=== PATIENT | female | born 1995 | race Caucasian/White ===

== ENCOUNTER 2023-10-01 07:30 | Inpatient (IN) ==
[2023-10-01] MEDS ORDERED: LIDOCAINE 1% LOCAL 20 ML VIAL INFIL PRN (08:49)
[2023-10-01 09:33] LABS: Hematocrit (blood only) 38.8 % (37.0-47.0); Hemoglobin 12.6 g/dl (12.0-16.0); Mean Corpuscular Hgb Conc 32.5 g/dL (32.0-36.0); Mean Corpuscular Volume 86.2 fL (80.0-100.0); Platelet Count 181 K/uL (130-400); RDW Coefficient of Variation 17.7 % (11.5-14.5); RDW Standard Deviation 56.1 fL (36.4-46.3); White Blood Count 10.36 K/ul (4.8-10.8)
[2023-10-01] MEDS: DINOPROSTONE 10 MG INSERT PV ONE (09:44)
[2023-10-01] MEDS ORDERED: ACETAMINOPHEN 325 MG TAB PO PRN (10:12)
--- NOTE | 2023-10-01 10:12 | History & Physical Report ---
Date of Service October 01, 2023 Assessment & Plan (1) Gestational diabetes mellitus: Plan: 28-year-old G1, P0 at 39 weeks and 2 days of gestation presenting today for scheduled induction of labor at term, for gestational diabetes, on metformin, Vital signs stable afebrile, heart rate reassuring, GBS negative, Cervix unfavorable, Cervidil is placed for cervical ripening, Discussed the process and what to expect in details, All questions were answered. (2) Iron deficiency anemia: Admission and Anticipated Discharge Date Admission Date: October 01, 2023 History of Present Illness Primary Care Provider: YOUSIF [place] Patient is a 28-year-old G1, P0 at 39 weeks and 2 days of gestation who was scheduled for induction of labor at term for gestational diabetes, on metformin. She has no complaints. She denies contractions, leakage of fluid, vaginal bleeding. She reports good movements. Her has been uncomplicated except GDM A2, patient preferred to be on oral medication instead of insulin. Her fingersticks have been within normal limits. GBS negative, last ultrasound was weeks ago, 09/15, EFW was 7 lb, 63th %ile Allergies Allergy/AdvReac Type Severity Reaction Status Date / Time Sulfa (Sulfonamide Allergy Severe Hives Verified 10/01/23 08:11 Antibiotics) Home Medications Medication Instructions Recorded Confirmed Type aspirin 81 mg tablet 81 mg PO QAM 06/24/23 10/01/23 History docusate sodium 100 mg capsule 100 mg PO HS 06/24/23 10/01/23 History (Colace) omeprazole 20 mg capsule,delayed 20 mg PO QAM 06/24/23 10/01/23 History release promethazine 25 mg tablet 25 mg PO HS nausea and vomiting 06/24/23 10/01/23 History pyridoxine (vitamin B6) 100 mg 100 mg PO DAILY 06/24/23 10/01/23 History tablet (Vitamin B-6) Patient History Medical History (Updated 10/01/23 @ 10:11 by Miller Richardson MD) History of migraine headaches Iron deficiency anemia had 3 iron infusions Gestational diabetes mellitus on oral medications( metformin 500mg) No pertinent past medical history Surgical History H/O wisdom tooth extraction Family History Grandmother (Maternal) Diabetes mellitus type 2, controlled Social History (Updated 10/01/23 @ 08:07 by Shakira Simmons RN) Smoking Status: Never smoker Hx Alcohol Use: No Hx Substance Use: No Preferred Language: Portuguese Communication Ability: Effective Communication Tools: Other Visual Impairment: Limited Hearing Ability: Normal Astronomy Teacher Required: No Beliefs That Will Affect Care: None marital status: marital status details: Jeremie Kruger ([phone]) Current Living Situation: Spouse Current Living Situation Comment: lives with current occupational status: 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 [employer] Feels Safe at Home: Yes Safety Concerns: Feels Safe At This Time Assistive Devices: None 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 History No history of STDs, no history of chlamydia, gonorrhea, herpes Review of Systems as per Subjective / HPI Physical Exam Constitutional: WD/WN, vitals as above well developed, well nourished and comfortable very talkative Gastrointestinal (Abdomen): normal bowel sounds, soft, nontender, no hepato splenomegaly (gravid) Genitourinary: normal external appearance OB Exam Abdomen: + vertex Manual OB Exam: + cervical dilation 1 cm, + cervical effacement 50% and + station -2 OB Exam Monitor Tracing: + external uterine monitor used and + category I Results & Data Vital Signs (Past 12 Hours) Vital Signs Temp Pulse Resp BP 10/01/23 07:52 36.9 C 18 10/01/23 07:51 100 H 134/86 Laboratory Results Lab Results 10/01/23 Range/Units 09:11 WBC 10.36 (4.8-10.8) K/ul RBC 4.50 (4.20-5.40) M/uL Hgb 12.6 (12.0-16.0) g/dl Hct 38.8 (37.0-47.0) % MCV 86.2 (80.0-100.0) fL MCH 28.0 (25.0-34.0) pg MCHC 32.5 (32.0-36.0) g/dL RDW Std Deviation 56.1 H (36.4-46.3) fL RDW Coeff of Sia 17.7 H (11.5-14.5) % Plt Count 181 (130-400) K/uL MPV 11.0 (9.4-12.4) fL (1) Gestational diabetes mellitus Gestational diabetes mellitus control: oral hypoglycemic-controlled Trimester: third trimester Qualified Code(s): O24.415 - Gestational diabetes mellitus in , controlled by oral hypoglycemic drugs (2) Iron deficiency anemia Iron deficiency anemia type: other iron deficiency Qualified Code(s): D50.8 - Other iron deficiency anemias
[2023-10-01] MEDS ORDERED: CALCIUM CARBONATE 500 MG CHEWABLE TAB PO PRN (10:13)
[2023-10-01 10:59] LABS: Albumin Globulin Ratio 0.9 (0.9-2); Albumin Level 3.3 gm/dl (3.4-5.0); BUN Creatinine Ratio 20.4 (10-20); Bilirubin,Total 0.3 mg/dl (0.2-1.0); Calcium 8.6 mg/dl (8.6-10.3); Creatinine Clr Calc Pharmacy 165.6 ml/min; Est GFR (African American) 148.8 ml/min; Est GFR (Non-African American) 128.4 ml/min; Globulin 3.6 gm/dl (2.5-4.0); Potassium 3.8 mmol/L (3.5-5.1); Total Protein 6.9 gm/dl (6.0-8.3)
--- OUTSIDE RECORDS SUMMARY | 2023-10-01 14:13 | External Medical Summary ---
Author Name Unknown Address Unknown Organization [id number][place] [facility] [place] [address] [place] [address] Laboratory Report Ordering Provider Test Date Status VÍCTOR MASON 09/24/2023 11:48:10 Final Observation Date Value Abnormality Reference (Units ) Status Iron 09/24/2023 11:48:10 66 33-151 (ug/dL) Final Iron-binding capacity 09/24/2023 11:48:10 581 Above high normal 250-425 (ug/dL) Final Transferrin Sat % 09/24/2023 11:48:10 11 Below low normal 15-55 (%) Final Performing Location [place] [facility] [place] [address] [place] [address]
--- OUTSIDE RECORDS SUMMARY | 2023-10-01 14:13 | External Medical Summary ---
Author Name Unknown Address Unknown Organization [id number][place] [place] [address] [facility] [address] Laboratory Report Ordering Provider Test Date Status VÍCTOR MASON 09/24/2023 11:48:10 Final Observation Date Value Abnormality Reference (Units ) Status Retic, % (auto) 09/24/2023 11:48:10 2.21 Above high normal 0.80-1.90 (%) Final Reticulocytes, Absolute 09/24/2023 11:48:10 102.1 Above high normal 31.3-100.1 (K/uL) Final Reticulocyte fraction, immature 09/24/2023 11:48:10 28.2 Above high normal 2.5-20.6 (%) Final Reticulocyte HGB 09/24/2023 11:48:10 31.3 29.7-37.4 (pg) Final Performing Location [facility] [place] [address] [facility] [address]
--- OUTSIDE RECORDS SUMMARY | 2023-10-01 14:13 | External Medical Summary | Summary of Care ---
Author Name Unknown Organization [facility] Address [address] [place] [facility] [place] [address] Phone [phone] Care Team Providers Care Laboratory Director Name Role Phone Unavailable Primary Care Provider Unavailabl e Reason for Visit * Reason Comments Outpatient Testing Encounter Details Date Type Department Care Team (Late st Contact Info) Description 09/24/2023 11:40 AM EDT Laboratory [facility], [facility] [address] [facility] [phone] [facility] [address] [facility] [address] Iron deficiency anemia, unspecified iron deficiency anemia type Allergies Active Allergy Reactions Criticality Noted Date Comments Sulfadiazine 04/24/2022 Other reaction(s): hives, itching Sulfamethoxazole-Trimethopri m Rash 08/24/2018 Other reaction(s): hives, itching documented as of this encounter (statuses as of 09/24/2023) Medications Medication Sig Dispensed Refills Start Date End Date Status omeprazole (PRILOSEC) 10 MG CPDR Take 2 Capsules by mouth every other day. 0 Active Cetirizine HCl 10 MG Oral Capsule Take 1 Capsule by mouth in the morning. 0 Active Gummies 0.18-25 MG Oral Tablet Chewable Take by mouth. 0 Activ e Promethazine HCl 25 MG Oral Tablet (Phenergan)Indication s: related nausea, antepartum Take 1 Tablet by mouth every 6 hours as needed for Nausea. 60 Tablet 2 06/23/2023 Active Vitamin B-12 1000 MCG Oral Tablet (Cyanocobalamin) Take 1 Tablet by mouth in the morning. 30 Tablet 3 07/22/2023 Active OneTouch Verio w/Device KitIndications:Diet controlled gestational diabetes mellitus (GDM) in third trimester Use as directed. Test blood sugar 4 times a day 1 Kit 0 08/03/2023 Active OneTouch Delica Lancets 33GIndications:Diet controlled gestational diabetes mellitus (GDM) in third trimester Test blood sugar 4 times a day 100 Each 2 08/03/2023 Active OneTouch Verio In Vitro Strip (Glucose Blood)Indications: t controlled gestational diabetes mellitus (GDM) in third trimester Test blood sugar 4 times a day 100 Strip 2 08/03/2023 Active metFORMIN HCl 500 MG Oral Tablet (Glucophage)Indicatio ns:Gestational diabetes mellitus (GDM) in third trimester controlled on oral hypoglycemic drug Take 1 Tablet by mouth every night at bedtime. 90 Tablet 1 09/09/2023 Active documented as of this encounter (statuses as of 09/24/2023) Active Problems Problem Noted Date Diagnosed Date with 36 completed weeks gestation 08/26 Supervision of high risk in third trim harsha 08/20/2023 with 33 completed weeks gestation 07/30 Gestational diabetes mellitu s (GDM) in third trimester controlled on oral hypoglycemic drug 08/03/2023 Overview: Diagnosed at 31 weeks Nutrition consult ordered Lab Results Component Value Date/Time 50-G GESTATIONAL GLUCOSE, 1 HOUR - [facility] 138 (H) 07/21/2023 03:59 PM 100-G GESTATIONAL GLUCOSE, 1 HOUR - [facility] 203 (H) 08/03/2023 09:25 AM 100-G GESTATIONAL GLUCOSE, 2 HOUR - [facility] 164 (H) 08/03/2023 10:28 AM 100-G GESTATIONAL GLUCOSE, 3 HOUR - [facility] 85 08/03/2023 11:24 AM 100-G GESTATIONAL GLUCOSE, FASTING - [facility] 88 08/03/2023 08:19 AM She reports her home blood glucose as following: DATE Fasting 1 hr after Breakfast 1 hr after Lunch 1 hr after Dinner 08/14/23 84 105 119 109 08/15/23 89 113 x 83 Recheck 116 08/16/23 93 150 drank chocolate milk 117 197 P[place] Salad with veggie sandwich on WW bread 2 hours: 116 08/17/23 83 120 91 140 2 hours: 121 08/18/23 86 128 138 112 08/19/23 90 132 129 110 08/20/23 87 118 125 x 08/20/23: MFM ADAPT consult complete. Enrolled in Current Health. Instructions provided to report blood sugars each week for MFM review 08/24/23: RPM message received regarding bedtime snack options; recommend fasting 8-10 hours overnight along with having a bedtime snack of 30g CHO paired with protein 08/25/23: RPM message received; recommend Nutrition consult - phone # provided to schedule 08/30/23-elevated after meals. Msg sent to have patient scheduled for follow up adapt 09/09/23-patient is scheduled for ADAPT today 09/0809/09/23: Adapt visit completed. 4/7 elevated FBS this week. Several elevated PP's. Pt agreeable to medication and would prefer to begin Metformin instead of insulin. Will begin Metformin 500mg PO at bedtime. Will work on diet control (may have to decrease carbohydrates with meals) over the next week. If PP's continue to be high, she is agreeable to adding morning dose of Metformin. --KW 09/14/23: RPM reviewed. Overall doing well, FBS only 2 out of 8 elevated. Continue Metformin 500 mg PO at bedtime --KW 09/20/23: RPM Stable, Metformin 500 mg QHS ---KW Last Assessment & Plan: Recommend ultrasound, surveillance and delivery as follows: A2GDM, recommend growth assessment with MFM every 4 weeks, initiate surveillance and continue until delivery at 39 weeks. Recommend intrapartum monitoring every 1-2 hours (A2GDM) or every 4 hours (A1GDM) and treat with insulin if indicated. Recommend 2-hour glucose tolerance testing with 75-gram glucose load 6-8 weeks . 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 Early GTT WNL Eczema 01/10/2020 Eosinophilic esophagitis 01/10/2020 Migraine headache 01/10/2020 Estimated Date of Delivery Comme nts Yes 10/06/2023 Based on last me nstrual period of 12/30/2022 (Exact Date) documented as of this encounter (statuses as of 09/24/2023) Immunizations Name Administration Dates Next Due Seasonal Influenza, PF, 6 M & above, IM , (FluLaval or Fluzone) 03/29/2023 TDAP (age 10 and older)(Boostrix) 07/21/2023 documented as of this encounter Social History Tobacco Use Types Packs/Day Years Used Date Smoking Tobacco: Never Smokeless Tobacco: Never Alcohol Use Standard Drinks/Week Comments No 0 (1 standard drink = 0.6 oz pur e alcohol) AUDIT-C Answer Date Recorded Frequency of Alcohol Consumption Never 08/24/2018 Average Number of Drinks Not on file 019 Frequency of Binge Drinking Not on file 07/30 Hunger Vital Sign Answer Date Recorded Within the past 12 months, y ou worried that your food would run out before you got the money to buy more. Never true 02/17/20 23 Within the past 12 months, t he food you bought just didn't last and you didn't have money to get more. Never true 02/16/2023 [place] Depression Scale Answer Date Recorded [place] Depression Scale Total 6 09/09/2023 The thought of harming myself has occurred to me . Never 09/09/2023 Estimated Date of Delivery Comme nts Yes 10/06/2023 Based on last me nstrual period of 12/30/2022 (Exact Date) Sex and Gender Information Value Date Recorded Sex Assigned at Female 02/16/2023 5:33 AM EDT Gender Identity Female 02/16/2023 5:33 AM EDT Sexual Orientation Straight 02/16/2023 5: 33 AM EDT Job Start Date Occupation Industry Not on file Not on file Not on file documented as of this encounter Plan of Treatment Upcoming Encounters Date Type Department Care Team (Late st Contact Info) Description 09/28/2023 9:30 AM EDT Pharmacy Pharmacy, [place] [address] [place] [address] Clinic, Anemia [address] [place] [address] 09/28/2023 10:15 AM EDT Office Visit Gynecology/Obstetrics [facility] [address] [place] [address] Alma Delia Black CRNP [address] [place] [address] [facility], Non Stress Tests [facility] [address] [address] 10/01/2023 2:30 PM EDT Office Visit Gynecology/Obstetrics [facility] [address] [place] [address] Eugenio Rivera MD [address] [place] [address] [place], Non Stress Tests [facility] [address] [address] Pending Results Name Type Priority Associated Diagnoses Date /Time CBC WITH WBC DIFFERENTIAL Lab Routine Iron deficiency anemia, unspecified iron deficiency anemia type 09/24/2023 11:48 AM EDT IRON SCREEN, INCLUDING TIBC Lab Routine Iron deficiency anemia, unspecified iron deficiency anemia type 09/24/2023 11:48 AM EDT FERRITIN Lab Routine Iron deficiency anemia, unspecified iron deficiency anemia type 09/24/2023 11:48 AM EDT RETICULOCYTE PANEL Lab Routine Iron deficiency anemia, unspecified iron deficiency anemia type 09/24/2023 11:48 AM EDT FOLIC ACID Lab Routine Iron deficiency anemia, unspecified iron deficiency anemia type 09/24/2023 11:48 AM EDT VITAMIN B12 Lab Routine Iron deficiency anemia, unspecified iron deficiency anemia type 09/24/2023 11:48 AM EDT CBC Lab Routine Iron deficiency anemia, unspecified iron deficiency anemia type 09/24/2023 11:48 AM EDT DIFFERENTIAL, AUTOMATED Lab Routine Iron deficiency anemia, unspecified iron deficiency anemia type 09/24/2023 11:48 AM EDT Health Maintenance Due Date Last Done Comments Depression Screening 2007 Hepatitis B (1 of 3 - 19+ 3-dose series) 2014 COVID-19 Vaccine ( - season) 2023 04/24/2022, 05/02/2021, 08/30/2020 Pap Smear 04/24/2025 04/24/2022, 07/30, 08/24/2018 DTaP,Tdap,and Td Vaccines (2 - Td or Tdap) 07/21/2033 07/21/2023 GARDASIL-HPV IMMUNIZATION SERIES Completed 06/23/2012, 02/22/2012, 12/21/2011 MENINGOCOCCAL (MENACTRA/MENVEO) Completed 01/11/2013 Gonorrhea / Chlamydia Screen Discontinued 02/23/2023 Influenza Vaccine (FLU shot) Completed 03/29/2023, 03/29/2023, 03/20/2022, Additional history exists Pneumococcal Vaccine: Pediatrics (0 to 5 Years) and At-Risk Patients (6 to 64 Years) Aged Out No longer eligible based on patient's age to complete this topic documented as of this encounter Medical Devices Not on filedocumented as of this encounter Visit Diagnoses Diagnosis Iron deficiency anemia, unspecified iron deficiency anemia type documented in this encounter
--- OUTSIDE RECORDS SUMMARY | 2023-10-01 14:13 | External Medical Summary ---
Author Name Unknown Address Unknown Organization [id number]:LABORATORY [facility] - [address] [place] [address] Laboratory Report Ordering Provider Test Date Status VÍCTOR MASON 09/24/2023 11:48:10 Final Observation Date Value Abnormality Reference (Units ) Status SYNC LEUKOCYTES IN BLOOD BY AUTOMATED COUNT 09/24/2023 11:48:10 10.18 4.00-10.80 (K/uL) Final Segs 09/24/2023 11:48:10 68.8 40.0-75.0 (%) Final Lymphs % 09/24/2023 11:48:10 20.0 18.0-42.0 (%) Final Monos 09/24/2023 11:48:10 10.5 1.0-11.0 (%) Final Eosinophils 09/24/2023 11:48:10 0.5 0.0-6.0 (%) Final Basos 09/24/2023 11:48:10 0.2 0.0-2.0 (%) Final Absolute Segs 09/24/2023 11:48:10 7.00 1.80-7.70 (K/uL) Final Lymphs, absolute 09/24/2023 11:48:10 2.04 1.00-4.80 (K/ul) Final Monos, Abs 09/24/2023 11:48:10 1.07 0.00-1.10 (K/uL) Final Eos, Abs 09/24/2023 11:48:10 0.05 0.00-0.70 (K/uL) Final Basos, Abs 09/24/2023 11:48:10 0.02 0.00-0.20 (K/uL) Final [facility] Location [facility] [address] [place] [address]
--- OUTSIDE RECORDS SUMMARY | 2023-10-01 14:13 | External Medical Summary | Summary of Care ---
Author Name Unknown Organization [facility] Address [address] [place] [facility] [place] [place] [address] Phone [phone] Care Team Providers Care Electrical Power Engineer Name Role Phone Unavailable Primary Care Provider Unavailabl e Reason for Visit * Reason Comments Return Visit Encounter Details Date Type Department Care Team (Late st Contact Info) Description 09/28/2023 10:30 AM EDT Office Visit Gynecology/Obstetric s [facility] [address] [place] [phone] Trinity Rodriguez MD [address] [place] [address] [facility], Non Stress Tests [facility] [address] [place] [phone] 38 weeks gestation of *; Obesity in , antepartum; Rh negative status during in third trimester; Antepartum anemia complicating ; Gestational diabetes mellitus (GDM) in third trimester controlled on oral hypoglycemic drug Allergies Active Allergy Reactions Criticality Noted Date Comments Sulfadiazine 04/24/2022 Other reaction(s): hives, itching Sulfamethoxazole-Trimethopri m Rash 08/24/2018 Other reaction(s): hives, itching documented as of this encounter (statuses as of 09/28/2023) Medications Medication Sig Dispensed Refills Start Date [...] as of this encounter (statuses as of 09/28/2023) Active Problems Problem Noted Date Diagnosed Date [...] 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 Early GTT WNL Eczema 01/10/2020 Eosinophilic esophagitis 01/10/2020 Migraine headache 01/10/2020 Estimated Date of Delivery Comme nts Yes 10/06/2023 Based on last me nstrual period of 12/30/2022 (Exact Date) documented as of this encounter (statuses as of 09/28/2023) Immunizations Name Administration Dates Next Due Seasonal [...] money to get more. Never true 02/16/2023 [place] Depression Scale Answer Date Recorded [place] Depression Scale Total 6 09/09/2023 The thought [...] on file documented as of this encounter Last Filed Vital Signs Vital Sign Reading Time Taken Comments Blood Pressure 116/74 09/28/2023 11:48 AM EDT Pulse - - Temperature - - Respiratory Rate - - Oxygen Saturation - - Inhaled Oxygen Concentration - - Weight - - Height - - Body Mass Index - - documented in this encounter Progress Notes * Trinity Rodriguez MD - 09/28/2023 11:12 AM EDT Krystal Kruger is a 28 year old female here for her routine OB appointment at 38w6d . Patient complains of pelvic pressure and a stuffy nose. Benadryl was recommended for nasal congestion. Her Estimated Date of Delivery: 10/06/23 REVIEW OF SYSTEMS: She affirms movement. Denies vaginal bleeding, LOF, regular contractions, N/V, headaches [place] Depression Scale: No data recorded [place] suicide question and score: Score of 3 = Yes, quite often. Score of 2 = Sometimes. Score of 1 = Hardly ever No data recorded ASSESSMENT assessment with Non-stress Test completed on 09/28/2023 at 38 weeks 6 days gestation for indication of gestational diabetes mellitus heart baseline: 145 bpm Variability: Moderate Decelerations: absent Accelerations: present Contractions: Present -occasional NST start time: 1033 hrs NST stop time: 1130 hrs NST strip reviewed, interpreted, and approved by OB provider, Dr. Rodriguez. NST strip stored in clinic storage file PHYSICAL EXAM: BP 116/74 | LMP 12/30/2022 (Exact Date) +FHT 145 bpm Fundal height Other ASSESSMENT/PLAN: (O99.210) Obesity in , antepartum Plan: Total weight gain to date 10.9kg (O26.899, Z67.91) Rh negative status during Plan: Patient received rhogam on 07/21/23. (O99.019) Antepartum anemia complicating Plan: Results for orders placed or performed in visit on 09/24/23 CBC Result Value Ref Range WBC 10.18 4.00 - 10.80 K/uL RBC 4.55 3.85 - 5.15 M/uL HGB 12.9 12.0 - 15.3 g/dL HCT 40.8 36.0 - 45.2 % MCV 89.7 81.5 - 97.5 fL MCH 28.4 27.0 - 34.0 pg MCHC 31.6 32.0 - 36.0 g/dL RDW 18.1 11.5 - 15.5 % PLT 175 140 - 400 K/uL MPV 11.3 6.6 - 11.1 fL (O24.415) Gestational diabetes mellitus (GDM) in third trimester controlled on oral hypoglycemic drug Plan: Fasting 85 - 88mg/dl, postprandial 120 - 130 mg/dl (Z3A.38) 38 weeks gestation of (primary encounter diagnosis) Plan: - labor precautions and kick counts reviewed - Patient is scheduled for IOL on 10/01/23. Trinity Rodriguez MD documented in this encounter Plan of Treatment Upcoming Encounters Date Type Department Care Team (Late st Contact Info) Description 10/01/2023 2:30 PM EDT Office Visit Gynecology/Obstetrics Ana M [facility] [address] [place] [address] Eugenio Rivera MD [address] [place] [address] [facility] Stress Tests [facility] [address] [place] [address] Health Maintenance Due Date Last Done Comments Depression Screening 2007 Hepatitis B (1 of 3 - 19+ 3-dose series) 2014 COVID-19 Vaccine (2022- season) 2023 04/24/2022, 05/02/2021, 08/30/2020 Pap Smear [...] as of this encounter Visit Diagnoses Diagnosis 38 weeks gestation of - Primary state, incidental Obesity in , antepartum Obesity complicating , childbirth, or the puerperium, antepartum condition or complication Rh negative status during in third trimester Antepartum anemia complicating Anemia, antepartum Gestational diabetes mellitus (GDM) in third trimester controlled on oral hypoglycemic drug documented in this encounter"
--- OUTSIDE RECORDS SUMMARY | 2023-10-01 14:13 | External Medical Summary ---
Author Name Unknown Address Unknown Organization [id number]:[facility] [place] [address] [place] [address] Laboratory Report Ordering Provider Test Date Status VÍCTOR MASON 09/24/2023 11:48:10 Final Observation Date Value Abnormality Reference (Units ) Status Ferritin 09/24/2023 11:48:10 16 13-150 (ng /mL) Final Performing Location LABORATORY [facility] - [address] [place] [address]
--- OUTSIDE RECORDS SUMMARY | 2023-10-01 14:13 | External Medical Summary | Summary of Care ---
Author Name Unknown Organization [facility] Address [address] [facility] [place] [address] Phone [phone] Care Team Providers Care Rubber Goods Tester Water Name Role Phone Unavailable Primary Care Provider Unavailabl e Reason for Visit * Reason Comments Return Visit Encounter Details Date Type Department Care Team (Late st Contact Info) Description 09/24/2023 10:45 AM EDT Office Visit Gynecology/Obstetric s [facility] [address] [facility] [place] [address] Natasha Aldrich CRNP [address] [place] [phone] Parker, Non Stress Tests Burt [address] [place] [address] Normal in third trimester*; Obesity in , antepartum; Rh negative, antepartum; INFORMATION; Antepartum anemia complicating ; Gestational diabetes mellitus [...] 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 Never true 02/16/2023 [place] Depression Scale Answer Date Recorded [place] Depression Scale Total 6 09/09/2023 The thought [...] Sign Reading Time Taken Comments Blood Pressure 128/60 09/24/2023 11:33 AM EDT Pulse - - Temperature - - Respiratory Rate - - Oxygen Saturation - - Inhaled Oxygen Concentration - - Weight - - Height - - Body Mass Index - - documented in this encounter Progress Notes * Natasha Aldrich CRNP - 09/24/2023 11:21 AM EDT ASSESSMENT assessment with Non-stress Test completed on 09/24/2023 at 38.2weeks gestation for indication of gestational diabetes mellitus heart baseline: 150 bpm Variability: Moderate Decelerations: absent Accelerations: present Contractions: None NST start time: 1058 NST stop time: 1124 NST strip reviewed, interpreted, and approved by OB provider, YOUSIF Chavez . NST strip stored in clinic storage file documented in this encounter Plan of Treatment Upcoming Encounters Date Type Department Care Team (Late st Contact Info) Description 09/28/2023 9:30 AM EDT Pharmacy Pharmacy, [place] [address] [place] [address] [facility] [address] [place] [address] 09/28/2023 10:15 AM EDT Office Visit Gynecology/Obstetrics [facility] [address] [place] [address] Alma Delia Black CRNP [address] [place] [address] Shirley Parker Stress Tests [facility] [address] [place] [address] 10/01/2023 2:30 PM EDT Office Visit Gynecology/Obstetrics [facility] [address] [place] [address] Eugenio Rivera MD [address] [place] [address] Keith, Shirley Stress Tests [facility] [address] [place] [address] Health Maintenance Due Date Last Done Comments [...] as of this encounter Visit Diagnoses Diagnosis Normal in third trimester- Primary Obesity in , antepartum Obesity complicating , childbirth, or the puerperium, antepartum condition or complication Rh negative, antepartum Rhesus isoimmunization affecting management of mother, antepartum condition INFORMATION Antepartum anemia complicating Anemia, antepartum Gestational diabetes mellitus (GDM) in third trimester controlled on oral hypoglycemic drug documented in this encounter
--- OUTSIDE RECORDS SUMMARY | 2023-10-01 14:13 | External Medical Summary ---
Author Name Unknown Address Unknown Organization K01:LABORATORY [facility] [place] - [address] [place] [address] Laboratory Report Ordering Provider Test Date Status VÍCTOR MASON 09/24/2023 11:48:10 Final Observation Date Value Abnormality Reference (Units ) Status Folic Acid 09/24/2023 11:48:10 >20.0 >4.5 (ng/ mL) Final Performing Location LABORATORY [facility] - [address] [place] [address]
--- OUTSIDE RECORDS SUMMARY | 2023-10-01 14:13 | External Medical Summary ---
Author Name Unknown Address Unknown Organization K01:LABORATORY [facility] - [address] [place] [address] Laboratory Report Ordering Provider Test Date Status VÍCTOR MASON 09/24/2023 11:48:10 Final Observation Date Value Abnormality Reference (Units ) Status Vitamin B12 09/24/2023 11:48:10 [phone] (pg/mL) Final Performing Location LABORATORY [facility] - [address] [place] [address]
--- OUTSIDE RECORDS SUMMARY | 2023-10-01 14:14 | External Medical Summary | Summary of Care ---
Author Name Unknown Organization [facility] Address [address] [place] [address] Phone [phone] Care Team Providers Care Learning Support Specialist Name Role Phone Unavailable Primary Care Provider Unavailabl e Reason for Visit * Reason Comments IV Therapy Venofer 08/28 Encounter Details Date Type Department Care Team (Latest Contact Info) Description 08/17/2023 2:30 PM EST Hem/Onc Treatment Hematology/Oncology Treatment, [place] [address] [place] [address] Ramya, Chair 4 Hem Onc [address] [place] [address] Antepartum anemia complicating *; Iron deficiency anemia, unspecified iron deficiency anemia type Allergies Active Allergy Reactions Criticality Noted Date Comments Sulfadiazine 04/24/2022 Other reaction(s): hives, itching Sulfamethoxazole-Trimethopri m Rash 08/24/2018 Other reaction(s): hives, itching documented as of this encounter (statuses as of 09/14/2023) Medications Medication Sig Dispensed Refills Start Date [...] a day 100 Strip 2 08/03/2023 Active documented as of this encounter (statuses as of 09/14/2023) Active Problems Problem Noted Date Diagnosed Date Supervision of high risk in third trim [...] Metformin 500 mg PO at bedtime --KW Last Assessment & Plan: Recommend ultrasound, surveillance [...] 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 Early GTT WNL Eczema 01/10/2020 Eosinophilic esophagitis 01/10/2020 Migraine headache 01/10/2020 Estimated Date of Delivery Comme nts Yes 10/06/2023 Based on last me nstrual period of 12/30/2022 (Exact Date) documented as of this encounter (statuses as of 09/14/2023) Immunizations Name Administration Dates Next Due Seasonal [...] money to get more. Never true 02/16/2023 [place] Depression Scale Answer Date Recorded [place] Depression Scale Total 6 02/23/2023 The thought of harming myself has occurred to me . Never 02/23/2023 Estimated Date of Delivery Comme nts Yes [...] Sign Reading Time Taken Comments Blood Pressure 145/86 08/17/2023 2:40 PM EST Pulse 104 08/17/2023 2:40 PM EST Temperature 36.5 C (97.7 F) 08/17/2023 2:40 PM ES T Respiratory Rate 18 08/17/2023 2:40 PM EST Oxygen Saturation 97% 08/17/2023 2:40 PM EST Inhaled Oxygen Concentration - - Weight - - Height - - Body Mass Index - - documented in this encounter Nursing Notes * Verónica Barriga RN - 08/17/2023 4:28 PM EST Goals: Patient will remain free from injury. Possible barriers to meeting goals: ambulation with IV pole Stability of the patient: Moderately stable - low risk of patient condition declining or worsening Summary regarding today's goals: Met: patient without injury during treatment today. Pt tolerated infusion well. No complaints. Discharged in stable condition. * Verónica Barriga RN - 08/17/2023 3:24 PM EST Chair 1 Pt here for venofer 3/3 infusion. No complaints. States she has been feeling better with less fatigue and SOB. Safety and Risk for Injury Patient will remain free from injury. Ensure appropriate safety devices are available. Provide and maintain safe environment. documented in this encounter Plan of Treatment Upcoming Encounters Date Type Department Care Team (Late st Contact Info) Description 09/15/2023 2:45 PM EDT Office Visit Gynecology/Obstetrics Ana M Parker [address] [place] [address] Natasha Aldrich CRNP [address] [place] [address] Shirley Parker Stress Tests [facility] [address] [place] [address] 09/16/2023 9:30 AM EDT [facility] [place] [address] [phone] [address] [facility] [address] 09/21/2023 2:15 PM EDT Office Visit Gynecology/Obstetrics Ana M Parker [address] [place] [address] Natasha Aldrich CRNP [address] [place] [address] 09/27/2023 4:30 PM EDT Office Visit Gynecology/Obstetrics Ana M Parker [address] [place] [address] Starr Ramsey PA-C [address] [place] [address] Health Maintenance Due Date Last Done Comments [...] as of this encounter Visit Diagnoses Diagnosis Antepartum anemia complicating - Primary Anemia, antepartum Iron deficiency anemia, unspecified iron deficiency anemia type documented in this encounter Administered Medications Inactive Administered Medications - up to 3 most recent administrations Medication Order MAR Action Action Date Dose Rate Site Iron Sucrose (Venofer) 300 mg in NSS 250 mL ivpb 300 mg, IV Piggyback, ONCE, 1 dose, On Wed08/17/23 at 1630, Administer over 90 Minutes Start Infusion 08/17/2023 2:50 PM EST 300 mg 166.67 mL/hr NSS infusion 500 mL, Intravenous, at 50 mL/hr, CONTINUOUS, Starting on Wed08/17/23 at 1600, Until Wed08/18/23 at 0159 Start Infusion 08/17/2023 2:49 PM EST 500 mL 50 mL/hr documented in this encounter
--- OUTSIDE RECORDS SUMMARY | 2023-10-01 14:14 | External Medical Summary | Summary of Care ---
Author Name Unknown Organization [facility] Address [address] [place] [address] Phone [phone] Care Team Providers Care Labeling Strategist Name Role Phone Unavailable Primary Care Provider Unavailabl e Reason for Visit * Reason Comments Infusion Venofer 06/30 Encounter Details Date Type Department Care Team (Latest Contact Info) Description 08/02/2023 2:30 PM EST Hem/Onc Treatment Hematology/Oncology Treatment, [place] [address] [place] [address] Antepartum anemia complicating *; Iron deficiency anemia, unspecified iron deficiency anemia type Allergies Active Allergy Reactions Criticality Noted Date Comments Sulfadiazine 04/24/2022 Other reaction(s): hives, itching Sulfamethoxazole-Trimethopri m Rash 08/24/2018 Other reaction(s): hives, itching documented as of this encounter (statuses as of 09/21/2023) Medications Medication Sig Dispensed Refills Start Date End Date Status omeprazole (PRILOSEC) 10 MG CPDR Take 2 Capsules by mouth every other day. 0 Active Cetirizine HCl 10 MG Oral Capsule Take 1 Capsule by mouth in the morning. 0 Active Gummies 0.18-25 MG Oral Tablet Chewable Take by mouth. 0 Activ e Promethazine HCl 25 MG Oral Tablet (Phenergan)Indicatio ns: related nausea, antepartum Take 1 Tablet by mouth every 6 hours as needed for Nausea. 60 Tablet 2 06/23/2023 Active Vitamin B-12 1000 MCG Oral Tablet (Cyanocobalamin) Take 1 Tablet by mouth in the morning. 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 Early GTT WNL Eczema 01/10/2020 Eosinophilic esophagitis 01/10/2020 Migraine headache 01/10/2020 Estimated Date of Delivery Comme nts Yes 10/06/2023 Based on last me nstrual period of 12/30/2022 (Exact Date) documented as of this encounter (statuses as of 09/21/2023) Immunizations Name Administration Dates Next Due Seasonal [...] money to get more. Never true 02/16/2023 [place] Depression Scale Answer Date Recorded [place] Depression Scale Total 6 02/23/2023 The thought [...] Sign Reading Time Taken Comments Blood Pressure 138/93 08/02/2023 3:09 PM EST Pulse 110 08/02/2023 3:09 PM EST Temperature 36.8 C (98.3 F) 08/02/2023 3:09 PM ES T Respiratory Rate 18 08/02/2023 3:09 PM EST Oxygen Saturation 98% 08/02/2023 3:09 PM EST Inhaled Oxygen Concentration - - Weight - - Height - - Body Mass Index - - documented in this encounter Nursing Notes * Georgiana Burr LPN - 08/02/2023 3:10 PM EST 1440: Chair 8. Pt arrived for Venofer / infusion. PIV in RFA. Pt tolerated well. VSS. No complaints at this time. 1622: Pt tolerated Venofer infusion well. PIV removed intact. Pt to return in one week. Discharged in stable condition. documented in this encounter Plan of Treatment Upcoming Encounters Date Type Department Care Team (Late st Contact Info) Description 09/24/2023 10:45 AM EDT Office Visit Gynecology/Obstetrics Ana M Parker [address] [place] [address] Natasha Aldrich CRNP [address] [place] [address] Shirley Parker Stress Tests [facility] [address] [place] [address] 09/28/2023 10:15 AM EDT Office Visit Gynecology/Obstetrics Ana M Parker [address] [place] [address] Alma Delia Black CRNP [address] [place] [address] Shirley Parker Stress Tests [place] [address] [place] [address] 10/01/2023 2:30 PM EDT Office Visit Gynecology/Obstetrics Ana M Parker [address] [place] [address] Eugenio Rivera MD [address] [place] [address] Shirley Parker Stress Tests [facility] [address] [place] [address] Health Maintenance Due Date Last Done Comments Depression Screening 2007 Hepatitis B (1 of 3 - 19+ 3-dose series) 2014 COVID-19 Vaccine ( season) 2023 04/24/2022, 05/02/2021, 08/30/2020 Pap Smear [...] mg, IV Piggyback, ONCE, 1 dose, On Wed08/02/23 at 1615, Administer over 90 Minutes Start Infusion 08/02/2023 2:49 PM EST 300 mg 166.67 mL/hr NSS infusion 500 mL, Intravenous, at 50 mL/hr, CONTINUOUS, Starting on Wed08/02/23 at 1545, Until Wed08/02/23 at 2027 Start Infusion 08/02/2023 2:49 PM EST 500 mL 50 mL/hr documented in this encounter
--- OUTSIDE RECORDS SUMMARY | 2023-10-01 14:14 | External Medical Summary | Summary of Care ---
Author Name Unknown Organization [facility] Address [address] [place] [address] Phone [phone] Care Team Providers Care General Internist And Physician Leader Name Role Phone Unavailable Primary Care Provider Unavailabl e Reason for Visit * Reason Onset Date Comments Left Message Anemia Follow-Up 08/30/2023 Encounter Details Date Type Department Care Team (Late st Contact Info) Description 08/30/2023 2:30 PM [facility] Pharmacy Pharmacy, [place] [address] [place], [place] [phone] Clinic, [place] [address] [place], [place] [phone] Iron deficiency anemia, unspecified iron deficiency anemia type* Allergies Active Allergy Reactions Criticality Noted Date Comments Sulfadiazine 04/24/2022 Other reaction(s): hives, itching Sulfamethoxazole-Trimethopri m Rash 08/24/2018 Other reaction(s): hives, itching documented as of this encounter (statuses as of 08/30/2023) Medications Medication Sig Dispensed Refills Start Date [...] the morning. 30 Tablet 3 07/22/2023 Active in3DepthTouch Verio w/Device KitIndications:Diet controlled gestational diabetes mellitus (GDM) in third trimester Use as directed. Test blood sugar 4 times a day 1 Kit 0 08/03/2023 Active in3DepthTouch Delthai Lancets 33GIndications:Diet controlled gestational diabetes mellitus (GDM) in third trimester Test blood sugar 4 times a day 100 Each 2 08/03/2023 Active in3DepthTouch Verio In Vitro Strip (Glucose Blood)Indications: t controlled gestational diabetes mellitus (GDM) in third trimester Test blood sugar 4 times a day 100 Strip 2 08/03/2023 Active documented as of this encounter (statuses as of 08/30/2023) Active Problems Problem Noted Date Diagnosed Date Supervision of high risk in third trim harsha 08/20/2023 with 33 completed weeks gestation 07/30 Diet controlled gestational diabetes mellitus (GDM) in third trimester 08/03/2023 Overview: Diagnosed at 31 weeks Nutrition [...] have patient scheduled for follow up adapt Last Assessment & Plan: CONSIDERATIONS: Reviewed etiology and risks associated with gestational diabetes mellitus (GDM), including risks to , fetus, and maternal progression to Type 2 DM. Instructed on proper use of glucometer; supplies ordered, if indicated. Advised that life-long screening for diabetes is recommended every 1-3 years. RECOMMENDATIONS: Recommend monitoring blood sugars with daily fasting blood sugar (maintained at less than or equal to 95) and 1 hour postprandial measurements (maintained at less than or equal to 140). Medications should be adjusted to maintain these target values. Report levels to MFM (Maternal- Medicine) weekly. Recommend nutrition consult with RDN (Registered Dietitian Tape Recording Machine Operator). Lifestyle changes are also indicated including optimizing gestational weight gain and physical activity of 30 minutes per day, if not otherwise contraindicated in . Insulin is preferred if medications are indicated to optimize euglycemia. Metformin (preferred over glyburide) may also be used in some circumstances. Reviewed the risks and benefits of each. Recommend ultrasound, surveillance and delivery as follows: A1GDM, delivery should be accomplished by 41w0d. A2GDM, recommend growth assessment with MFM every 4 weeks, initiate surveillance at 32 weeks and continue until delivery at 39 weeks. Recommend intrapartum monitoring every 1-2 hours (A2GDM) or every 4 hours (A1GDM) and treat with insulin if indicated. Recommend 2-hour glucose tolerance testing with 75-gram glucose load 6-8 weeks . 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 Early GTT WNL Eczema 01/10/2020 Eosinophilic esophagitis 01/10/2020 Migraine headache 01/10/2020 Estimated Date of Delivery Comme nts Yes 10/06/2023 Based on last me nstrual period of 12/30/2022 (Exact Date) documented as of this encounter (statuses as of 08/30/2023) Immunizations Name Administration Dates Next Due Seasonal [...] money to get more. Never true 02/16/2023 [place] Depression Scale Answer Date Recorded [place] Depression Scale Total 6 02/23/2023 The thought [...] on file documented as of this encounter Progress Notes * Antonina Rahman RPh - 08/30/2023 1:44 PM EST CBCd, ferritin, iron screen, retic panel, B12, FA ordered for 09/15/23. Antonina Rahman PharmD, [facility] Clinical Pharmacist [facility] (P: [phone]) 08/30/2023 1:44 PM * Laxmi Barrow, mold cooler - 08/30/2023 12:54 PM EST Patient Phone Numbers MyG sent to patient. Patient received Venofer 300 mg x 3 on 08/02, 08/09 and 08/17. Labs due on 09/14. GA: 34w5d Estimated Date of Delivery: 10/06/23 Pharmacist - please place appropriate lab orders. Thank you, Laxmi Barrow Data Processing Consultant 08/30/2023,12:55 PM documented in this encounter Plan of Treatment Upcoming Encounters Date Type Department Care Team (Late st Contact Info) Description 09/01/2023 9:30 AM EST Office Visit Gynecology/Obstetrics [facility] [address] [facility] [place] [address] Natasha Aldrich CRNP [address] [place] [address] 09/15/2023 2:40 PM EDT Laboratory Outpatient Laboratory, [address] [address] [place], Lab [facility] [address] [place] [address] 09/15/2023 3:15 PM EDT Office Visit Gynecology/Obstetrics [facility] [address] [place] [address] Natasha Aldrich CRNP [address] [place] [address] 09/16/2023 9:30 AM EDT Pharmacy Pharmacy, [address] [address] Clinic, Anemia [address] [place] [address] Scheduled Orders Name Type Priority Associated Diagnoses Orde r Schedule CBC WITH WBC DIFFERENTIAL Lab Routine Iron deficiency anemia, unspecified iron deficiency anemia type Expected: 09/15/2023, Expires: 08/01/2024 IRON SCREEN, INCLUDING TIBC Lab Routine Iron deficiency anemia, unspecified iron deficiency anemia type Expected: 09/15/2023, Expires: 08/01/2024 FERRITIN Lab Routine Iron deficiency anemia, unspecified iron deficiency anemia type Expected: 09/15/2023, Expires: 08/01/2024 RETICULOCYTE PANEL Lab Routine Iron deficiency anemia, unspecified iron deficiency anemia type Expected: 09/15/2023, Expires: 08/01/2024 FOLIC ACID Lab Routine Iron deficiency anemia, unspecified iron deficiency anemia type Expected: 09/15/2023, Expires: 08/01/2024 VITAMIN B12 Lab Routine Iron deficiency anemia, unspecified iron deficiency anemia type Expected: 09/15/2023, Expires: 08/01/2024 Health Maintenance Due Date Last Done Comments [...] Iron deficiency anemia, unspecified iron deficiency anemia type- Primary documented in this encounter
--- OUTSIDE RECORDS SUMMARY | 2023-10-01 14:14 | External Medical Summary | Summary of Care ---
Author Name Unknown Organization [facility] Address [address] [facility] [place] [address] Phone [phone] Care Team Providers Care Knitting Machine Tender Name Role Phone Unavailable Primary Care Provider Unavailabl e Reason for Visit * Reason Comments Return Visit Non Stress Test Encounter Details Date Type Department Care Team (Late st Contact Info) Description 09/21/2023 1:45 PM EDT Office Visit Gynecology/Obstetric s [facility] [address] [place] [address] Natasha Aldrich CRNP [address] [place] [address] [place], Non Stress Tests [facility] [address] [place] [address] Normal in third trimester*; Obesity in , antepartum; Rh negative status during in third trimester; INFORMATION; Antepartum anemia complicating ; Gestational diabetes [...] the morning. 30 Tablet 3 07/22/2023 Active LotLinxTouch Verio w/Device KitIndications:Diet controlled gestational diabetes mellitus (GDM) in third trimester Use as directed. Test blood sugar 4 times a day 1 Kit 0 08/03/2023 Active OneTouch Delica Lancets 33GIndications:Diet controlled gestational diabetes mellitus (GDM) in third trimester Test blood sugar 4 times a day 100 Each 2 08/03/2023 Active LotLinxTouch Verio In Vitro Strip (Glucose Blood)Indications: t [...] MFM ADAPT consult complete. Enrolled in Current [facility]. 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 Never true 02/16/2023 [place] Depression Scale Answer Date Recorded [place] Depression Scale Total 6 09/09/2023 The thought [...] Sign Reading Time Taken Comments Blood Pressure 114/58 09/21/2023 1:52 PM EDT Pulse - - Temperature - - Respiratory Rate - - Oxygen Saturation - - Inhaled Oxygen Concentration - - Weight 93.9 kg (207 lb) 09/21/2023 1:52 PM EDT Height 157.5 cm (5' 2") 09/21/2023 1:52 PM EDT Body Mass Index 37.86 09/21/2023 1:52 PM EDT documented in this encounter Progress Notes * Natasha Aldrich CRNP - 09/21/2023 2:27 PM EDT 37w6d Has questions regarding IOL and care, answered to the best of my ability. Reports good blood sugar readings. Taking metformin as directed. ASSESSMENT assessment with Non-stress Test completed on 09/21/2023 at 37.6weeks gestation for indication of gestational diabetes mellitus heart baseline: 150 bpm Variability: Moderate Decelerations: absent Accelerations: present Contractions: None NST start time: 1345 NST stop time: 1410 NST strip reviewed, interpreted, and approved by OB provider, YOUSIF Chavez . NST strip stored in clinic storage file documented in this encounter Nursing Notes * Mere Winter LPN - 09/21/2023 2:19 PM EDT 37w6d NST, JUAN documented in this encounter Plan of Treatment Upcoming Encounters Date Type Department Care Team (Late st Contact Info) Description 09/24/2023 10:45 AM EDT Office Visit Gynecology/Obstetrics [facility] [address] [facility] [place] [address] Natasha Aldrich CRNP [address] [place] [address] Shirley Parker Stress Tests [facility] [address] [place] [address] 09/28/2023 10:15 AM EDT Office Visit Gynecology/Obstetrics [facility] [address] [place] [address] Alma Delia Black CRNP [address] [place] [address] Shirley Parker Stress Tests [facility] [address] [place] [address] 10/01/2023 2:30 PM EDT Office Visit Gynecology/Obstetrics [facility] [address] [place] [address] Eugenio Rivera MD [address] [place] [address] Shirley Parker Stress Tests [facility] [address] [place] [address] Health Maintenance Due Date Last Done Comments [...] Rh negative status during in third trimester INFORMATION Antepartum anemia complicating Anemia, antepartum Gestational diabetes mellitus (GDM) in third trimester controlled on oral hypoglycemic drug documented in this encounter
--- OUTSIDE RECORDS SUMMARY | 2023-10-01 14:14 | External Medical Summary | Summary of Care ---
Author Name Unknown Organization [facility] Address [address] [place] [address] Phone [phone] Care Team Providers Care Oracle Brm Developer Name Role Phone Unavailable Primary Care Provider Unavailabl e Reason for Visit * Reason Comments IV Therapy Venofer 08/28 Encounter Details Date Type Department Care Team (Latest Contact Info) Description 08/17/2023 2:30 PM EST Hem/Onc Treatment Hematology/Oncology Treatment, [place] [address] [place] [address] Ramya, Chair 4 Hem Onc [address]en[address] [place] [address] Antepartum anemia complicating *; Iron deficiency anemia, unspecified iron deficiency anemia type Allergies Active Allergy Reactions Criticality Noted Date Comments Sulfadiazine 04/24/2022 Other reaction(s): hives, itching Sulfamethoxazole-Trimethopri m Rash 08/24/2018 Other reaction(s): hives, itching documented as of this encounter (statuses as of 09/01/2023) Medications Medication Sig Dispensed Refills Start Date [...] as of this encounter (statuses as of 09/01/2023) Active Problems Problem Noted Date Diagnosed Date [...] 129 110 08/20/23 87 118 125 x 02/23/24: MFM ADAPT consult complete. Enrolled in Current [...] Recommend nutrition consult with RDN (Registered Dietitian Assemblies And Installations Inspector). 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 Early GTT WNL Eczema 01/10/2020 Eosinophilic esophagitis 01/10/2020 Migraine headache 01/10/2020 Estimated Date of Delivery Comme nts Yes 10/06/2023 Based on last me nstrual period of 12/30/2022 (Exact Date) documented as of this encounter (statuses as of 09/01/2023) Immunizations Name Administration Dates Next Due Seasonal [...] money to get more. Never true 02/16/2023 [place] Depression Scale Answer Date Recorded [place] Depression Scale Total 6 02/23/2023 The thought [...] Care Team (Late st Contact Info) Description 09/09/2023 11:15 AM EDT Office Visit Gynecology/Obstetrics [facility] 132 [facility] [place] [address] Antonina Saldana CNM [address] [facility] [place] [address] 09/09/2023 3:00 PM EDT Telemedicine Clay Maker Obstetrics Maternal Medicine, [place] [address] [place] [address] Tash Macdonald CRNP [address] [place] [address] 09/15/2023 3:15 PM EDT Office Visit Gynecology/Obstetrics [facility] [address] [facility] [place] [address] Natasha Aldrich CRNP [address] [place] [address] 09/16/2023 9:30 AM EDT Pharmacy Pharmacy, [address] [address] 09/21/2023 2:15 PM EDT Office Visit Gynecology/Obstetrics [facility] [address] [place] [address] Natasha Aldrich CRNP [address] [place] [address] 09/27/2023 4:30 PM EDT Office Visit Gynecology/Obstetrics [facility] [address] [facility] [place] [address] Starr Ramsey PA-C [address] [place] [address] Health Maintenance Due Date Last Done Comments [...] type documented in this encounter Administered Medications Active Administered Medications - up to 3 most recent administrations Medication Order MAR Action Action Date Dose Rate Site oxygen GAS Inhalation, OXYGEN, First dose on Wed08/17/23 at 1600, Until Discontinued, Device/Managed by: Low Flow Device, Goal SPO2 (%): 91-95, Starting Device: Nasal Cannula, Initial Flow Rate (LPM): 2, Lowest Support: Nasal Cannula: Flow 0-6 LPM. Titrate up/down by 1 LPM., Higher Support: Non-Rebreather (NRB) Mask: Minimum of 10 LPM. Titrate to maintain bag inflation., Titration Interval: Q2 minutes and as needed., Notify Provider: For sudden DECREASE in resting SPO2 to less than 85% and when escalating delivery device., Wean patient off Oxygen when the oxygen saturation is greater than or equal to 93% Inactive Administered Medications - up to 3 [...]
--- OUTSIDE RECORDS SUMMARY | 2023-10-01 14:14 | External Medical Summary | Summary of Care ---
Author Name Unknown Organization [facility] Address [address] [facility] [address] Phone [phone] Care Team Providers Care Sealing Machine Operator Name Role Phone Unavailable Primary Care Provider Unavailabl e Reason for Visit * Reason Comments Return Visit Encounter Details Date Type Department Care Team (Late st Contact Info) Description 09/01/2023 9:30 AM EST Office Visit Gynecology/Obstetric s [facility] [address] [place] [address] Natasha Aldrich CRNP [address] [place] [address] Normal in third trimester*; Obesity in , antepartum; Rh negative, antepartum; INFORMATION; Antepartum anemia complicating ; Diet controlled gestational diabetes mellitus (GDM) in third trimester Allergies Active Allergy Reactions Criticality Noted Date [...] Recommend nutrition consult with RDN (Registered Dietitian Internet Retailer). 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 Never true 02/16/2023 Ozone Depression Scale Answer Date Recorded Ozone Depression Scale Total 6 02/23/2023 The thought [...] Sign Reading Time Taken Comments Blood Pressure 118/70 09/01/2023 9:41 AM EST Pulse - - Temperature - - Respiratory Rate - - Oxygen Saturation - - Inhaled Oxygen Concentration - - Weight 90.7 kg (200 lb) 09/01/2023 9:41 AM EST Height 157.5 cm (5' 2") 09/01/2023 9:41 AM EST Body Mass Index 36.58 09/01/2023 9:41 AM EST documented in this encounter Progress Notes * Natasha Aldrich CRNP - 09/01/2023 10:16 AM EST 35w Reviewed blood sugars. Had about 4 elevated readings, all WNL at the 2 hour PP roro. She questions if she needs to see the evs attendant, appt is not scheduled for about 10 days from now. Advised that her blood sugars are very good, and likely she will not gain much information at this visit. Baby is active. No contractions or bleeding, no LOF. YOUSIF Chavez documented in this encounter Nursing Notes * Annette Camarena LPN - 09/01/2023 9:48 AM EST 35w0d documented in this encounter Plan of Treatment Upcoming Encounters Date Type Department Care Team (Late st Contact Info) Description 09/08/2023 3:00 PM EDT Telemedicine Nutrition Services, [place] 126 [facility] [place] [address] Thiago Swartz RDN 126 [facility] [place] [address] 09/09/2023 11:15 AM EDT Office Visit Gynecology/Obstetrics [facility] 132 [facility] [place] [address] Antonina Saldana CNM [address] [place] [address] [place] [address] 09/09/2023 3:00 PM EDT Telemedicine Valve Steamer Obstetrics Maternal Medicine, [place] [address] [place] [address] Tash Macdonald CRNP [facility] [place] [address] 09/15/2023 2:40 PM EDT Laboratory Outpatient Laboratory, [address] [address] [facility] [place] [address] 09/15/2023 3:15 PM EDT Office Visit Gynecology/Obstetrics [facility] [address] [facility] [place] [address] Natasha Aldrich CRNP [address] [place] [address] 09/16/2023 9:30 AM EDT Pharmacy Pharmacy, [place] [address] [place] [address] [place] [address] [place] [address] 09/21/2023 2:15 PM EDT Office Visit Gynecology/Obstetrics [facility] [address] [place] [address] Natasha Aldrich CRNP [address] [place] [address] 09/27/2023 4:30 PM EDT Office Visit Gynecology/Obstetrics [facility] [address] [place] [address] Starr Ramsey PA-C [address] [place] [address] Health Maintenance Due Date Last Done Comments [...] condition INFORMATION Antepartum anemia complicating Anemia, antepartum Diet controlled gestational diabetes mellitus (GDM) in third trimester documented in this encounter
--- OUTSIDE RECORDS SUMMARY | 2023-10-01 14:14 | External Medical Summary | Summary of Care ---
Author Name Unknown Organization [facility] Address [address] [place] [place] [address] Phone [phone] Care Team Providers Care Group Leader Wafer Polishing Name Role Phone Unavailable Primary Care Provider Unavailabl e Reason for Visit * Reason Comments Return Visit Encounter Details Date Type Department Care Team (Late st Contact Info) Description 09/09/2023 11:15 AM EDT Office Visit Gynecology/Obstetric s [facility] 132 [facility] [place] [address] Antonina Saldana CNM [address] [facility] [place] [id number] Normal in third trimester*; Antepartum anemia complicating ; Diet controlled gestational diabetes mellitus (GDM) in third trimester Allergies Active Allergy Reactions Criticality Noted Date Comments Sulfadiazine 04/24/2022 Other reaction(s): hives, itching Sulfamethoxazole-Trimethopri m Rash 08/24/2018 Other reaction(s): hives, itching documented as of this encounter (statuses as of 09/09/2023) Medications Medication Sig Dispensed Refills Start Date [...] as of this encounter (statuses as of 09/09/2023) Active Problems Problem Noted Date Diagnosed Date [...] Recommend nutrition consult with RDN (Registered Dietitian Home Health Aid). 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 Early GTT WNL Eczema 01/10/2020 Eosinophilic esophagitis 01/10/2020 Migraine headache 01/10/2020 Estimated Date of Delivery Comme nts Yes 10/06/2023 Based on last me nstrual period of 12/30/2022 (Exact Date) documented as of this encounter (statuses as of 09/09/2023) Immunizations Name Administration Dates Next Due Seasonal [...] money to get more. Never true 02/16/2023 [place] Depression Scale Answer Date Recorded [place] Depression Scale Total 6 09/09/2023 The thought [...] Sign Reading Time Taken Comments Blood Pressure 118/72 09/09/2023 11:17 AM EDT Pulse - - Temperature - - Respiratory Rate - - Oxygen Saturation - - Inhaled Oxygen Concentration - - Weight 91.2 kg (201 lb) 09/09/2023 11:17 AM EDT Height 157.5 cm (5' 2") 09/09/2023 11:17 AM EDT Body Mass Index 36.76 09/09/2023 11:17 AM EDT documented in this encounter Progress Notes * Antonina Saldana CNM - 09/09/2023 11:15 AM EDT Krystal Kruger is a 28 year old female here for her routine OB appointment at 36w1d Her Estimated Date of Delivery: 10/06/23 REVIEW OF SYSTEMS: She affirms movement. Denies vaginal bleeding, LOF, contractions, N/V, headaches Some pelvic pressure PHYSICAL EXAM: Filed Vitals: 09/09/23 1117 BP: 118/72 Weight: 91.2 kg (201 lb) Height: 1.575 m (5' 2") +FHT 140s Fundal height 36 ASSESSMENT/PLAN: 1. Antepartum anemia complicating -iron infusions 2. Diet controlled gestational diabetes mellitus (GDM) in third trimester Seeing MFM 3. Normal in third trimester Supervision of - GBS swab collected today Power Plant Operator Apprentice Documentation Provider requested vice president financial. Name of vice president financial: Cherelle Ram LPN - labor precautions and kick counts reviewed - RTO in 1 week Antonina Saldana CNM documented in this encounter Nursing Notes * Mere Winter LPN - 09/09/2023 11:24 AM EDT 36w1d GBS today Is going to start zyrtec for seasonal allergies Pelvic pressure documented in this encounter Plan of Treatment Upcoming Encounters Date Type Department Care Team (Late st Contact Info) Description 09/09/2023 3:00 PM EDT Telemedicine Strip Machine Operator Obstetrics Maternal Medicine, [address] [place] [address] Tash Macdonald CRNP [address] [place] [address] 09/15/2023 3:15 PM EDT Office Visit Gynecology/Obstetrics [facility] [address] [place] [address] Natasha Aldrich CRNP [address] [place] [address] 09/16/2023 9:30 AM EDT Pharmacy Pharmacy, [place] [address] [place], [place] [phone] [place] [address] [place] [address] 09/21/2023 2:15 PM EDT Office Visit Gynecology/Obstetrics [facility] [address] [facility] [place] [address] Natasha Aldrich CRNP [address] [place] [address] 09/27/2023 4:30 PM EDT Office Visit Gynecology/Obstetrics [facility] [address] [place], [place] [phone] Starr Ramsey PA-C [address] [place] [address] Pending Results Name Type Priority Associated Diagnoses Date /Time GROUP B STREP CULTURE/PCR Lab Routine Normal in third trimester 09/09/2023 11:50 AM EDT Health Maintenance Due Date Last [...] as of this encounter Visit Diagnoses Diagnosis Diet controlled gestational diabetes mellitus (GDM) in third trimester- Primary Normal in third trimester- Primary Antepartum anemia complicating Anemia, antepartum Diet controlled gestational diabetes mellitus (GDM) in third trimester documented in this encounter
--- OUTSIDE RECORDS SUMMARY | 2023-10-01 14:14 | External Medical Summary | Summary of Care ---
Author Name Unknown Organization [facility] Address [address] [place] [address] Phone [phone] Care Team Providers Care Casing Man Name Role Phone Unavailable Primary Care Provider Unavailabl e Reason for Visit * Reason Comments Infusion Venofer 2/3 Encounter Details Date Type Department Care Team (Latest Contact Info) Description 08/09/2023 2:30 PM EST Hem/Onc Treatment Hematology/Oncology Treatment, [place] [address] [place] [address] Ramya, Chair 7 Hem Onc Scen[address] [place] [address] Antepartum anemia complicating *; Iron deficiency anemia, unspecified iron deficiency anemia type Allergies Active Allergy Reactions Criticality Noted Date Comments Sulfadiazine 04/24/2022 Other reaction(s): hives, itching Sulfamethoxazole-Trimethopri m Rash 08/24/2018 Other reaction(s): hives, itching documented as of this encounter (statuses as of 09/15/2023) Medications Medication Sig Dispensed Refills Start Date [...] as of this encounter (statuses as of 09/15/2023) Active Problems Problem Noted Date Diagnosed Date Gestational diabetes mellitu s (GDM) in third [...] 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 Early GTT WNL Eczema 01/10/2020 Eosinophilic esophagitis 01/10/2020 Migraine headache 01/10/2020 Estimated Date of Delivery Comme nts Yes 10/06/2023 Based on last me nstrual period of 12/30/2022 (Exact Date) documented as of this encounter (statuses as of 09/15/2023) Immunizations Name Administration Dates Next Due Seasonal [...] money to get more. Never true 02/16/2023 [place] Depression Scale Answer Date Recorded [place] Depression Scale Total 6 02/23/2023 The thought [...] Sign Reading Time Taken Comments Blood Pressure 135/84 08/09/2023 3:09 PM EST Pulse 110 08/09/2023 3:09 PM EST Temperature 36.9 C (98.4 F) 08/09/2023 3:09 PM ES T Respiratory Rate 18 08/09/2023 3:09 PM EST Oxygen Saturation 97% 08/09/2023 3:09 PM EST Inhaled Oxygen Concentration - - Weight - - Height - - Body Mass Index - - documented in this encounter Nursing Notes * Georgiana Burr, GIL - 08/09/2023 3:09 PM EST 1440: Pt arrived for Venofer 2/3 infusion. PIV in LFA. Pt tolerated well. VSS. No complaints at this time. 1614: Pt tolerated Venofer infusion well. PIV removed intact. Pt to return in one week. Discharged in stable condition. documented in this encounter Plan of Treatment Upcoming Encounters Date Type Department Care Team (Late st Contact Info) Description 09/16/2023 9:30 AM EDT Pharmacy Pharmacy, [place] [address] [address] [place], [place] [phone] Clinic, [address] [address] 09/16/2023 1:45 PM EDT Imaging Radiology [facility] [address] [place] [address] 09/21/2023 1:45 PM EDT Office Visit Gynecology/Obstetrics [facility] [address] [place] [address] Natasha Aldrich CRNP [address] [place] [address] Keith, Non Stress Tests [facility] [address] [place] [address] 09/24/2023 10:45 AM EDT Office Visit [facility] [address] [place] [address] Natasha Aldrich CRNP [address] [place] [address] [place], Non Stress Tests [place] [address] [place] [address] 09/28/2023 10:15 AM EDT Office Visit Gynecology/Obstetrics [facility] [address] [place] [address] Alma Delia Black CRNP [address] [place] [address] [place], Non Stress Tests [place] [address] [place] [address] 10/01/2023 2:30 PM EDT Office Visit Gynecology/Obstetrics [facility] [address] [place] [address] Eugenio Rivera MD [address] [place] [address] Keith Non Stress Tests [place] [address] [place] [address] Health Maintenance Due Date Last Done Comments [...] mg, IV Piggyback, ONCE, 1 dose, On Wed08/09/23 at 1630, Administer over 90 Minutes Start Infusion 08/09/2023 2:40 PM EST 300 mg 166.67 mL/hr NSS infusion 500 mL, Intravenous, at 50 mL/hr, CONTINUOUS, Starting on Wed08/09/23 at 1600, Until Wed08/09/23 at 2015 Start Infusion 08/09/2023 2:40 PM EST 500 mL 50 mL/hr documented in this encounter
--- OUTSIDE RECORDS SUMMARY | 2023-10-01 14:14 | External Medical Summary | Summary of Care ---
Author Name Unknown Organization [facility] Address [address] [facility] [address] Phone [phone] Care Team Providers Care Dermatology Sales Representative Name Role Phone Unavailable Primary Care Provider Unavailabl e Encounter Details Date Type Department Care Team (Late st Contact Info) Description 09/03/2023 Telephone Gynecology/Obstetrics Ana M Parker [address] [place] [address] Natasha Aldrich CRNP [address] [place] [id number] Allergies Active Allergy Reactions Criticality Noted Date Comments Sulfadiazine 04/24/2022 Other reaction(s): hives, itching Sulfamethoxazole-Trimethopri m Rash 08/24/2018 Other reaction(s): hives, itching documented as of this encounter (statuses as of 09/03/2023) Medications Medication Sig Dispensed Refills Start Date [...] as of this encounter (statuses as of 09/03/2023) Active Problems Problem Noted Date Diagnosed Date [...] Recommend nutrition consult with RDN (Registered Dietitian Horse Racing Analyst). 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 Early GTT WNL Eczema 01/10/2020 Eosinophilic esophagitis 01/10/2020 Migraine headache 01/10/2020 Estimated Date of Delivery Comme nts Yes 10/06/2023 Based on last me nstrual period of 12/30/2022 (Exact Date) documented as of this encounter (statuses as of 09/03/2023) Immunizations Name Administration Dates Next Due Seasonal [...] money to get more. Never true 02/16/2023 [place] Depression Scale Answer Date Recorded [place] Depression Scale Total 6 02/23/2023 The thought [...] on file documented as of this encounter Miscellaneous Notes * Telephone Encounter - Carlene Dee LPN - 09/03/2023 11:20 AM EST FMLA forms completed, faxed, copy placed in scanning and original in triage bin documented in this encounter Plan of Treatment Upcoming Encounters Date Type Department Care Team (Late st Contact Info) Description 09/09/2023 11:15 AM EDT [facility] [address] [place], [place] [address] Antonina Saldana CNM [address] [place] [address] 09/09/2023 3:00 PM EDT Telemedicine Human Resources Intern Obstetrics Maternal Medicine, [address] [address] Tash Macdonald CRNP [facility] [place] [address] 09/15/2023 3:15 PM EDT Office Visit Gynecology/Obstetrics [facility] [address] [place], [place] [address] Natasha Aldrich CRNP [address] [place] [address] 09/16/2023 9:30 AM EDT Pharmacy Pharmacy, [address] [phone] [place] [address] [address] [place], [place] [phone] 09/21/2023 2:15 PM EDT Office Visit Gynecology/Obstetrics [facility] [address] [place] [address] Natasha Aldrich CRNP [address] [place] [address] 09/27/2023 4:30 PM EDT Office Visit Gynecology/Obstetrics [facility] [address] [place] [address] Starr Ramsey PA-C [address] [place] [address] Health Maintenance Due Date Last Done Comments Depression Screening 2007 Hepatitis B (1 of 3 - 19+ 3-dose series) 2014 COVID-19 Vaccine (4 - 2022- season) 2023 04/24/2022, 05/02/2021, 08/30/2020 Pap Smear [...]
--- OUTSIDE RECORDS SUMMARY | 2023-10-01 14:14 | External Medical Summary | Summary of Care ---
Author Name Unknown Organization [facility] Address [address] [place] [address] Phone [phone] Care Team Providers Care Panel Cutter Name Role Phone Unavailable Primary Care Provider Unavailabl e Reason for Visit * Reason Onset Date Comments Home Monitoring Orders Only 08/23/2023 Encounter Details Date Type Department Care Team (Late st Contact Info) Description 08/23/2023 Home Monitoring Care Coordination [address] [place], [place] [phone] Tash Macdonald CRNP [address] [place], [place] [id number] Diet controlled gestational diabetes mellitus (GDM) in third trimester* Allergies Active Allergy Reactions Criticality Noted Date Comments Sulfadiazine 04/24/2022 Other reaction(s): hives, itching Sulfamethoxazole-Trimethopri m Rash 08/24/2018 Other reaction(s): hives, itching documented as of this encounter (statuses as of 08/23/2023) Medications Medication Sig Dispensed Refills Start Date [...] the morning. 30 Tablet 3 07/22/2023 Active RealLifeConnectTouch Verio w/Device KitIndications:Diet controlled gestational diabetes mellitus (GDM) in third trimester Use as directed. Test blood sugar 4 times a day 1 Kit 0 08/03/2023 Active RealLifeConnectTouch Delthai Lancets 33GIndications:Diet controlled gestational diabetes mellitus (GDM) in third trimester Test blood sugar 4 times a day 100 Each 2 08/03/2023 Active RealLifeConnectTouch Verio In Vitro Strip (Glucose Blood)Indications: t controlled gestational diabetes mellitus (GDM) in third trimester Test blood sugar 4 times a day 100 Strip 2 08/03/2023 Active documented as of this encounter (statuses as of 08/23/2023) Active Problems Problem Noted Date Diagnosed Date [...] blood sugars each week for MFM review Last Assessment & Plan: CONSIDERATIONS: Reviewed etiology [...] Recommend nutrition consult with RDN (Registered Dietitian Valet Attendant). 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 Early GTT WNL Eczema 01/10/2020 Eosinophilic esophagitis 01/10/2020 Migraine headache 01/10/2020 Estimated Date of Delivery Comme nts Yes 10/06/2023 Based on last me nstrual period of 12/30/2022 (Exact Date) documented as of this encounter (statuses as of 08/23/2023) Immunizations Name Administration Dates Next Due Seasonal [...] money to get more. Never true 02/16/2023 Arab Depression Scale Answer Date Recorded Arab Depression Scale Total 6 02/23/2023 The thought [...] as of this encounter Progress Notes * Dima Sarkar, [facility] Press Operator - 08/23/2023 9:45 AM EST Patient has been successfully enrolled to the [id number] Diabetes Management in program. Standard alarm settings have been set as follows: Singular glucose level > 200 Singular glucose level < 60 Patient has been advised to take blood sugar four times a day (fasting upon waking, and one hour after each meal). Patient has been oriented to remote patient monitoring, assisted with initial device set-up, and provided with instruction and education regarding the program. Patient understands that this monitoring should not be used as a replacement for emergency and/or urgent care. If patient experiences any urgent symptoms, they are aware to call office/beauty consultant provider for additional instructions. In emergency situations, they will report directly to the ED for further evaluation. If you would like to customize the alert parameters and/or instructions for this patient, please let me know and we can have them changed. documented in this encounter Plan of Treatment Upcoming Encounters Date Type Department Care Team (Late st Contact Info) Description 08/26/2023 2:30 PM EST Pharmacy Pharmacy, [address] [address] Clinic, [address] [address] 09/01/2023 9:30 AM EST Office Visit Gynecology/Obstetrics [facility] [address] [facility] [address] Natasha Aldrich CRNP [address] [facility] [address] 09/15/2023 3:15 PM EDT Office Visit Gynecology/Obstetrics [facility] [address] [facility] [address] Natasha Aldrich CRNP [address] [place] [address] Health Maintenance Due Date Last Done Comments [...] diabetes mellitus (GDM) in third trimester- Primary documented in this encounter
--- OUTSIDE RECORDS SUMMARY | 2023-10-01 14:14 | External Medical Summary | Summary of Care ---
Author Name Unknown Organization [facility] Address [address] [place] [address] Phone [phone] Care Team Providers Care Preschool Director Name Role Phone Unavailable Primary Care Provider Unavailabl e Reason for Visit * Reason Comments Return Visit Encounter Details Date Type Department Care Team (Late st Contact Info) Description 09/09/2023 11:15 AM EDT Office Visit Gynecology/Obstetric s [facility] [address] [facility] [place] [address] Antonina Saldana CNM [address] [facility] [place] [phone] Normal in third trimester*; Antepartum anemia complicating [...] Recommend nutrition consult with RDN (Registered Dietitian Reflesher). 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 Name of emergency service restorer: Cherelle Ram LPN - labor precautions and [...] Info) Description 09/09/2023 3:00 PM EDT Telemedicine Manager Lean Obstetrics Maternal Medicine, [address] [place] [address] Tash Macdonald CRNP [address] [place] [address] 09/15/2023 3:15 PM EDT Office Visit Gynecology/Obstetrics [facility] [address] [place] [address] Natasha Aldrich CRNP [address] [place] [address] 09/16/2023 9:30 AM EDT Pharmacy Pharmacy, [place] [address] [address] [place], [place] [phone] [place] [address] [place] [address] 09/21/2023 2:15 PM EDT Office Visit Gynecology/Obstetrics [facility] [address] [facility] [place] [address] Natasha Aldrich CRNP [address] [place] [address] 09/27/2023 4:30 PM EDT Office Visit Gynecology/Obstetrics [facility] [address] [place], [place] [phone] Starr Ramsey PA-C [address] [place] [address] Pending Results Name Type Priority Associated Diagnoses [...]
--- OUTSIDE RECORDS SUMMARY | 2023-10-01 14:14 | External Medical Summary | Summary of Care ---
Author Name Unknown Organization [facility] Address [address] [place] [address] Phone [phone] Care Team Providers Care Deck Supervisor Name Role Phone Unavailable Primary Care Provider Unavailabl e Encounter Details Date Type Department Care Team (Late st Contact Info) Description 08/30/2023 Telephone Used Car Manager Obstetrics Maternal Medicine, [place] [address] [place] [address] [place], Nurse Used Car Manager [facility] [address] [place] [address] Allergies Active Allergy Reactions Criticality Noted Date [...] a day 1 Kit 0 08/03/2023 Active R2GTouch Delthai Lancets 33GIndications:Diet controlled gestational diabetes mellitus (GDM) in third trimester Test blood sugar 4 times a day 100 Each 2 08/03/2023 Active R2GTouch Verio In Vitro Strip (Glucose Blood)Indications: t [...] Recommend nutrition consult with RDN (Registered Dietitian Fire Protection Inspector). 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 Never true 02/16/2023 [place] Depression Scale Answer Date Recorded [place] Depression Scale Total 6 02/23/2023 The thought [...] encounter Miscellaneous Notes * Telephone Encounter - Chio Ramos OSA - 08/30/2023 3:18 PM EST Spoke with Krystal. Appointment scheduled. Patient aware of date, time and location of Maternal Medicine appointment. * Telephone Encounter - Chio Ramos OSA - 08/30/2023 3:18 PM EST ----- Message from Jeanine Ramirez LPN sent at 08/30/2023 1:43 PM EST ----- Regarding: adapt Please schedule for follow up adapt documented in this encounter Plan of Treatment Upcoming Encounters Date Type Department Care Team (Late st Contact Info) Description 09/01/2023 9:30 AM EST Office Visit Gynecology/Obstetrics [facility] [address] [place] [address] [facility] CRNP [facility] [place] [address] 09/09/2023 3:00 PM EDT Telemedicine Used Car Manager Obstetrics Maternal Medicine, [address] [address] Tash Macdonald CRNP [facility] [place] [address] 09/15/2023 2:40 PM EDT Laboratory Outpatient Laboratory, [address] [phone] [place], Lab B1a [address] [place] [address] 09/15/2023 3:15 PM EDT Office Visit Gynecology/Obstetrics [facility] [address] [place] [address] Natasha Aldrich CRNP [address] [address] 09/16/2023 9:30 AM EDT Pharmacy Pharmacy, [place] [address] [address] [place], [place] [phone] [address] [address] Health Maintenance Due Date Last Done Comments [...]
--- OUTSIDE RECORDS SUMMARY | 2023-10-01 14:14 | External Medical Summary | Summary of Care ---
Author Name Unknown Organization [facility] Address [address] [place] [address] Phone [phone] Care Team Providers Care Licensed Nuclear Control Room Operator Name Role Phone Unavailable Primary Care Provider Unavailabl e Reason for Referral * Evaluate & Treat - Unlimited Visits (Within 3 days (urgent)) - Pending Review Specialty Diagnoses / Procedures Referred By Antonio akers Referred To Contact Medical Imaging Technologist Diagnoses Diet controlled gestational diabetes mellitus (GDM) in third trimester Tash Macdonald CRNP [address] [place] [address] Referral ID Status Reason Start Date Expiration Date Visits Requested Visits Authorized [id number] Pending Review Specialty Services Required 08/20/2023 1 1 Question Answer Referral Priority Within 3 days (urgent) Where should this appointment be scheduled? 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 If Wednesday or later, please call after 2:45 or leave voice mail. Reason for Visit * Reason Comments Consultation GESTATIONAL DIABETES * Evaluate & Treat - Unlimited Visits (Within 10 days (routine)) - Pending Review Specialty Diagnoses / Procedures Referred By Antonio akers Referred To Contact Obstetrics/Gynecology / Maternal Medicine Diagnoses Diet controlled gestational diabetes mellitus (GDM) in third trimester Natasha Aldrich CRNP [address] [place] [address] Referral ID Status Reason Start Date Expiration Date Visits Requested Visits Authorized [id number] Pending Review Specialty Services Required 08/11/[phone] Encounter Details Date Type Department Care Team (Late st Contact Info) Description 08/20/2023 3:30 PM EST Telemedicine Slab Installer Obstetrics Maternal Medicine, [place] [address] [place] [address] MacdonaldTash CRNP [address] [place] [address] Diet controlled gestational diabetes mellitus (GDM) in third trimester*; Supervision of high risk in third trimester; with 33 completed weeks gestation Allergies Active Allergy Reactions Criticality Noted Date Comments Sulfadiazine 04/24/2022 Other reaction(s): hives, itching Sulfamethoxazole-Trimethopri m Rash 08/24/2018 Other reaction(s): hives, itching documented as of this encounter (statuses as of 08/20/2023) Medications Medication Sig Dispensed Refills Start Date [...] as of this encounter (statuses as of 08/20/2023) Active Problems Problem Noted Date Diagnosed Date [...] Recommend nutrition consult with RDN (Registered Dietitian Chiller Tender). 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 Early GTT WNL Eczema 01/10/2020 Eosinophilic esophagitis 01/10/2020 Migraine headache 01/10/2020 Estimated Date of Delivery Comme nts Yes 10/06/2023 Based on last me nstrual period of 12/30/2022 (Exact Date) documented as of this encounter (statuses as of 08/20/2023) Immunizations Name Administration Dates Next Due Seasonal [...] money to get more. Never true 02/16/2023 [place] Depression Scale Answer Date Recorded [place] Depression Scale Total 6 02/23/2023 The thought [...] as of this encounter Progress Notes * Tash Macdonald CRNP - 08/20/2023 5:04 PM EST MATERNAL MEDICINE CONSULT Krystal Kruger Consult date: 08/20/23 REFERRING PROVIDER: YOUSIF Chavez Patient location: HOME. I was in a hospital or clinic location. After connecting through televideo,patient was verified with two unique identifiers. 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 Methods to assure confidentiality were taken. Patient acknowledged consent and understanding of pr ivacy and security of the Telemedicine visit. The patient agreed to participate. Krystal Kruger is a 28 year old with intrauterine at 33w2d (Estimated Date of Delivery: 10/06/23 by exact LMP) who presents today for an MFM consult due to gestational diabetes. HPI/CURRENT : pre- BMI=class 1 obesity (83 kg (183 lb); 5' 2"); FOB Jeremie; complicated by above. Genetic testing: Low Risk Cell Free DNA OB Burt Parker Problems (from 02/18/23 to present) Problem Noted Resolved Diet controlled gestational diabetes mellitus (GDM) in third trimester 08/03/2023 by Natasha Aldrich CRNP No Overview Addendum 08/20/2023 5:02 PM by Tash Macdonald CRNP Diagnosed at 31 weeks Nutrition consult ordered [...] blood sugars each week for MFM review I have reviewed this patient's previous OB ultrasound reports, pertinent labwork and testing provided by her referring OB provider. Current Outpatient Medications Medication Sig Dispense Refill Cetirizine HCl 10 MG Oral Capsule Take 1 Capsule by mouth in the morning. (Patient not taking: Reported on 08/20/2023) omeprazole (PRILOSEC) 10 MG CPDR Take 2 Capsules by mouth every other day. [employer]ed Medical CorporationTouch Delica Lancets 33G Test blood sugar 4 times a day 100 Each 2 OneTouch Verio In Vitro Strip (Glucose Blood) Test blood sugar 4 times a day 100 Strip 2 OneTouch Verio w/Device Kit Use as directed. Test blood sugar 4 times a day 1 Kit 0 Gummies 0.18-25 MG Oral Tablet Chewable Take by mouth. Promethazine HCl 25 MG Oral Tablet (Phenergan) Take 1 Tablet by mouth every 6 hours as needed for Nausea. 60 Tablet 2 Vitamin B-12 1000 MCG Oral Tablet (Cyanocobalamin) Take 1 Tablet by mouth in the morning. 30 Tablet3 No current facility-administered medications for this visit. Facility-Administered Medications Ordered in Other Visits Medication Dose Route Frequency Provider Last Rate Last Admin oxygen GAS Inhalation Oxygen Rusty Kemp, [facility] Review of patient's allergies indicates: Allergen Reactions Sulfadiazine Other reaction(s): hives, itching Sulfamethoxazole-Trimethoprim Rash Other reaction(s): hives, itching OB History Para Term AB Living 1 0 0 0 0 0 SAB IAB Ectopic Multiple Live Births 0 0 0 0 0 # Outcome Date GA Lbr Hung/2nd Weight Sex Delivery Anes PTL Lv 1 Current Obstetric Comments 2023 FOB #1: Jeremie, age 38,healthy Past Medical History: Diagnosis Date Eczema 01/10/2020 Eosinophilic esophagitis 01/10/2020 Migraine headache 01/10/2020 Past Surgical History: Procedure Laterality Date DENTAL SURGERY PROCEDURE NEC Family History Problem Relation Age of Onset Brain Aneurysm Mother Other (gestational diabetes) Mother Diabetes Grandmother (Maternal) Cancer Grandmother (Paternal) lung cancer Social History Tobacco Use Smoking status: Never Smokeless tobacco: Never Vaping Use Vaping Use: Never used Substance Use Topics Alcohol use: No Drug use: No REVIEW OF SYSTEMS: headaches: no nausea/vomiting: denies reports movement: yes abdominal pain/tenderness/cramping/contractions: no vaginal bleeding: no vaginal leaking of fluid: no all other systems negative PHYSICAL EXAM: LMP 12/30/2022 (Exact Date) General: Well appearing Psych: Alert to time, place, and person and Pleasant DISCUSSION/RECOMMENDATIONS: Problem List Items Addressed This Visit OB Burt Parker Diet controlled gestational diabetes mellitus (GDM) in third trimester CONSIDERATIONS: Reviewed etiology and risks associated with gestational diabetes mellitus (GDM), including risks topregnancy, fetus, and maternal progression to Type 2 [...] Recommend nutrition consult with RDN (Registered Dietitian Chiller Tender). Lifestyle changes are also indicated including optimizing gestational weight gain and physical activity of 30 minutes per day, if not otherwise contraindicated in . Insulin is preferred if medications are indicated to optimize euglycemia. Metformin (preferred overglyburide) may also be used in some circumstances. [...] with 75-gram glucose load 6-8 weeks . Recommend follow up ultrasound with MFM as clinically indicated (eg., GDM with need for medication). Follow up for glucose management in 1 week via [facility] Total time spent face to face in this visit was 35 minutes of which more than 50% was spent discussing and counseling the patient/caregiver(s) regarding gestational diabetes, diet and exercise. Totaltime spent on this date of service including non face to face was 40 minutes in preparation, delivery, and documentation of care provided to Krystal Kruger, excluding time spent in performance of separately billable services. Details outlined above in impression and plan. YOUSIF Titus 08/20/2023 5:07 PM documented in this encounter Miscellaneous Notes * Pt Handout (on AVS) - Tash Macdonald CRNP - 08/20/2023 5:11 PM EST Images from the original note were not included. [id number] What Is Gestational Diabetes? Diabetes is when your body doesn?t use blood sugar normally. Gestational diabetes happens only in . When food is digested, it turns into sugar (glucose) that goes into your bloodstream. Yourbody sends out insulin. This is a hormone that helps your cells use this blood sugar for energy. Changes in your body during may affect this process. This can cause your blood sugar to be too high. This can cause problems for both you and your baby. You can take steps to control your blood sugar. This will help reduce the risks for you and your baby. Managing gestational diabetes You need to control your blood sugar while you are . Your healthcare team will help you make a plan to do this. This plan will include: Eating the right foods. This is the main way to control your blood sugar. You need to eat a variety of healthy foods each day. To help you plan changes in your diet, you will likely work with a registered dietitian. This is an expert on food and nutrition. The dietitian may have you take part giulia nutrition program to help you reach your goals. Getting exercise. Your body uses more blood sugar when you exercise. Your healthcare team can help you pick the best kinds of exercise for you. Checking your blood sugar. You will likely need to check your blood sugar at home. You will do this 2 or more times a day. Your healthcare team will teach you how. They will talk with you about your blood sugar goals. Your blood sugar may also be tested every week or so at a clinic. If your blood sugar stays too high, you may need to have insulin shots during your . Risks to your baby If your blood sugar stays high, your baby is at risk for these problems: Your baby may grow too large. If your blood sugar stays too high, your baby may grow too large. This is called macrosomia. This means a baby is too big for a safe vaginal . A large baby may get their shoulder stuck behind the pubic bone during . This is called shoulder dystocia. The baby's arms and shoulders could be injured. This may cause permanent arm damage. The baby may also have low oxygen levels (hypoxia) while they are stuck. Hypoxia can lead to cerebral palsy. In rare cases, it can lead to . Your baby?s organs may not be fully grown at . If you have diabetes, your baby may need to be delivered early. This may be because of problems with the . Or it may be because of risks to you or your baby. If your baby is delivered early, their lungs may not work well. This is called respiratory distress syndrome. Your baby's liver also may not work normally. And your baby may have yellow color in their skin and eyes (jaundice) after . Your baby?s blood sugar may be low after . If your blood sugar is too high, your baby makesextra insulin. The baby will keep making extra insulin right after . Your baby may need to be treated for low blood sugar. Your baby could be stillborn. This is very rare. But your baby could before if your blood sugar stays high for too long. Risks to you If you don?t control your blood sugar, you are more likely to have: High blood pressure. High blood sugar makes you more likely to have high blood pressure during your . This is a danger to your health. It could lead to early delivery for your baby. Infections. High blood sugar makes you more likely to have bladder, kidney, and vaginal infections. Trouble breathing. You may feel short of breath. High blood sugar can cause too much fluid around the baby. This is called polyhydramnios. Your abdomen gets big and pushes up on your lungs. Difficult labor. Your delivery may be harder. And your recovery may take longer. If your blood sugar stays too high, your baby may grow too large. A large baby might cause injury to you during . Or the baby may have to be delivered by section (). This means making a cut (incision) in your abdomen and uterus. A is a common risk of gestational diabetes. Reduce your future risk for type 2 diabetes Women who have gestational diabetes are at higher risk of type 2 diabetes later. You are also at higher risk for gestational diabetes in your next . You can help reduce your risk in these ways: Lose excess weight. Be as active as you can. Eat more fruits and vegetables. Eat fewer processed foods. Get regular blood tests to check for diabetes. Who is at risk for gestational diabetes? You're more at risk if you: Are overweight Have a family history of diabetes Have had a baby who before Had gestational diabetes in the past Are , , , South or [place] , or How daily issues affect your health Many things in your daily life impact your health. This can include transportation, money problems,housing, access to food, and childcare. If you can?t get to medical appointments, you may not receive the care you need. When money is tight, it may be difficult to pay for medicines. And living far from a grocery store can make it hard to buy healthy food. If you have concerns in any of these or other areas, talk with your healthcare team. They may know of local resources to assist you. Or they may have a staff person who can help. Last Reviewed Date: 01/26/202319993145-9895 [employer]. All rights reserved. This information is not intended as a substitute for professional medical care. Always follow your healthcare professional's instructions. * Pt Handout (on AVS) - Tash Macdonald CRNP - 08/20/2023 5:11 PM EST Images from the original note were not included. [id number] Understanding Carbohydrates A car needs the right type of fuel to run. And you need the right kind of food to function. To keepyour energy level up, your body needs food that has carbohydrates (carbs). But carbs raise blood sugar levels higher and faster than other kinds of food. Your dietitian will work with you to figure out the amount of carbs you need. Carbs come in 3 types: starches, sugars, and fiber. Starches Starches are found in grains, some vegetables, and beans. Grain products include bread, pasta, cereal, and tortillas. Starchy vegetables include potatoes, peas, corn, joyner beans, yams, and squash. Kidney beans, hollis beans, black beans, garbanzo beans, and lentils also have starches. Sugars Sugars are found naturally in many foods. Or they can be added. Foods that contain natural sugar include fruits and fruit juices, dairy products, honey, and molasses. Added sugars are found in most desserts, processed foods, candy, regular soda, and fruit drinks. These are very helpful to treat lowblood sugar (hypoglycemia). They give you sugar quickly. Try to keep at least 15 to 20 grams of these simple sugars with you at all times. Eat or drink these if you start to have symptoms of low blood sugar. Fiber Fiber comes from plant foods. Your body can't digest most fiber. Instead of raising blood sugar levels like other carbs, fiber stops blood sugar from rising too fast. Fiber is found in fruits, vegetables, whole grains, beans, peas, and many nuts. Carb counting Keep track of the amount of carbs you eat. This can help you keep the right balance of carbs, physical activity, and medicine. The amount of carbs you need will be different from what other people need. How much you need depends on many things. These include your health, the medicines you take, andhow active you are. Your healthcare team will help you figure out the right amount of carbs for you. You may start with 45 to 60 grams of carbs per meal, depending on your case. Carb counting is a system that helps you keep track of the carbohydrates you eat at each meal. Carbs come from many foods. These include grains, starchy vegetables, fruit, milk, beans, and snackfoods. You can either count carbohydrate grams or carbohydrate servings. When you count carbohydrate servings, 1 carbohydrate serving = 15 grams of carbohydrates. Here are some examples of foods that have about 15 grams of carbs (1 serving of carbohydrates): 1/2 cup of canned or frozen fruit A small piece of fresh fruit (4 ounces) 1 slice of bread 1/2 cup of oatmeal 1/3 cup of rice 4 to 6 crackers 1/2 Ivorian muffin 1/2 cup of black beans 1/4 of a large baked potato (3 ounces) 2/3 cup of plain fat-free yogurt 1 cup of soup 1/2 cup of casserole 6 chicken nuggets [id number] brownie or cake without frosting 2 small cookies 1/2 cup of ice cream or sherbet Carb counting is easier when food labels are available. Look at the label to see how many grams of total carbs per serving the food contains. Then you can figure out how much you should eat. If your food doesn't have a nutrition label, you should be able to get an idea how many carbs there are per serving by using a book or website. Two very important lines to look at on the label are the serving size and the total carbohydrate amount per serving. Here are some tips for using food labels to count your carbs: Check the serving size. The information on the label is based on that serving size. If you eat more than the listed serving size, you may have to double or triple the other information on the label. Check the total grams of carbs. Total carbohydrate from the label includes sugar, starch, and fiber. Be sure to use the total carbohydrate number (minus the fiber) and not sugar alone. Know how many grams of carbs you can have. Be familiar with the matching portion sizes. Compare labels. Compare the labels of different products. Look at serving sizes and total carbs to find the products that work best for you. Don't forget protein and fat. With the focus on carb counting, it might be easy to forget protein and fat in your meals. Don't forget to include sources of protein and healthy fat to balance your meals. Also watch how much salt (sodium) you eat. This is especially true if you have high blood pressure. If you have diabetes, limit the amount of sodium to less than 2,300 mg a day. It?s also important to be consistent with the amount of carbs and time you eat when taking a fixed dose of diabetes medicine. Work with your healthcare provider or dietitian if you need more help. They can help you keep track of your carbs. They can also help you figure out how many grams of carbs you should have. Last Reviewed Date: 05/28/202119999565-7291 [employer]. All rights reserved. This information is not intended as a substitute for professional medical care. Always follow your healthcare professional's instructions. * Pt Handout (on AVS) - Tash Macdonald CRNP - 08/20/2023 5:11 PM EST Images from the original note were not included. Gestational Diabetes - Video To view the video go to this web address: https://bit.[email or web address] Or, scan this QR code with your smart phone [employer]. * Assessment & Plan Note - Tash Macdonald CRNP - 08/20/2023 3:31 PM EST Associated Problem(s): Diet controlled gestational diabetes mellitus (GDM) in third trimester CONSIDERATIONS: Reviewed etiology and risks associated with gestational diabetes mellitus (GDM), including risks topregnancy, fetus, and maternal progression to Type 2 [...] Recommend nutrition consult with RDN (Registered Dietitian Chiller Tender). Lifestyle changes are also indicated including optimizing gestational weight gain and physical activity of 30 minutes per day, if not otherwise contraindicated in . Insulin is preferred if medications are indicated to optimize euglycemia. Metformin (preferred overglyburide) may also be used in some circumstances. [...] with 75-gram glucose load 6-8 weeks . documented in this encounter Plan of Treatment Upcoming Encounters Date Type Department Care Team (Late st Contact Info) Description 08/26/2023 2:30 PM EST Pharmacy Pharmacy, [place] [address] [place] [facility] [place] [address] Clinic, [facility] [address] [place] [address] 09/01/2023 9:30 AM EST Office Visit Gynecology/Obstetrics [facility] [address] [facility] [place] [address] Natasha Aldrich CRNP [address] [place] [address] 09/15/2023 3:15 PM EDT Office Visit Gynecology/Obstetrics [facility] [address] [place] [id number] Natasha Aldrich CRNP [address] [place] [phone] Scheduled Referrals Name Type Priority Associated Diagnoses Orde r Schedule REMOTE PATIENT MONITORING REFERRAL Referral Within 3 days (urgent) Diet controlled gestational diabetes mellitus (GDM) in third trimester Ordered: 08/20/2023 Health Maintenance Due Date Last Done Comments [...] diabetes mellitus (GDM) in third trimester- Primary Supervision of high risk in third trimester Unspecified high-risk with 33 completed weeks gestation documented in this encounter
--- OUTSIDE RECORDS SUMMARY | 2023-10-01 14:14 | External Medical Summary | Summary of Care ---
Author Name Unknown Organization [facility] Address [address] [facility] [address] Phone [phone] Care Team Providers Care Gear Hobber Operator Name Role Phone Unavailable Primary Care Provider Unavailabl e Reason for Visit * Reason Comments Return Visit Non Stress Test Encounter Details Date Type Department Care Team (Late st Contact Info) Description 09/15/2023 2:45 PM EDT Office Visit Gynecology/Obstetric s [facility] [address] [place] [address] Natasha Aldrich CRNP [address] [place] [address] [place], Non Stress Tests [facility] [address] [place] [phone] Normal in third trimester*; Obesity in , antepartum; Rh negative status during in third trimester; INFORMATION; Antepartum anemia complicating ; Gestational diabetes mellitus (GDM) in third trimester controlled on oral hypoglycemic drug; Other specified related conditions, third trimester Allergies Active Allergy Reactions Criticality [...] the morning. 30 Tablet 3 07/22/2023 Active SoundstacheTouch Verio w/Device KitIndications:Diet controlled gestational diabetes mellitus (GDM) in third trimester Use as directed. 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 Never true 02/16/2023 [place] Depression Scale Answer Date Recorded [place] Depression Scale Total 6 09/09/2023 The thought [...] Sign Reading Time Taken Comments Blood Pressure 120/84 09/15/2023 2:48 PM EDT Pulse - - Temperature - - Respiratory Rate - - Oxygen Saturation - - Inhaled Oxygen Concentration - - Weight 92.1 kg (203 lb) 09/15/2023 2:48 PM EDT Height 157.5 cm (5' 2") 09/15/2023 2:48 PM EDT Body Mass Index 37.13 09/15/2023 2:48 PM EDT documented in this encounter Progress Notes * Natasha Aldrich CRNP - 09/15/2023 3:45 PM EDT 37w Was started on Metformin 500mg QHS by MFM. Few of her blood sugars are elevated. She seems to be tolerating the metformin, though she did have GI upset yesterday. Multiple messages have been sent by [facility] to get growth u/s scheduled and it is still not done. Will obtain growth u/s locally rather thanwaiting for MF to schedule. IOL scheduled in 39th week. ASSESSMENT assessment with Non-stress Test completed on 09/15/2023 at 37weeks gestation for indication ofgestational diabetes mellitus heart baseline: 140 bpm Variability: Moderate Decelerations: absent Accelerations: present Contractions: None NST start time: 1450 NST stop time: 1522 NST strip reviewed, interpreted, and approved by OB provider, YOUSIF Chavez . NST strip stored in clinic storage file documented in this encounter Nursing Notes * Mere Winter LPN - 09/15/2023 3:13 PM EDT 37w0d Started on metformin last week. Needs growth scan. documented in this encounter Plan of Treatment Upcoming Encounters Date Type Department Care Team (Late st Contact Info) Description 09/16/2023 9:30 AM EDT Pharmacy Pharmacy, [place] [address] [place] [address] Clinic, [facility] [address] [place] [address] 09/21/2023 1:45 PM EDT Office Visit Gynecology/Obstetrics [facility] [address] [place] [address] Natasha Aldrich CRNP [address] [place] [address] [facility] Stress [facility] [address] [place] [address] 09/24/2023 10:45 AM EDT Office Visit Gynecology/Obstetrics [facility] [address] [place] [address] Natasha Aldrich CRNP [address] [place] [address] Keith Non Stress Tests [facility] [address] [place] [address] 09/28/2023 10:15 AM EDT Office Visit Gynecology/Obstetrics [facility] [address] [place] [address] Alma Delia Black CRNP [address] [place] [address] Keith Non Stress Tests [facility] [address] [place] [address] 10/01/2023 2:30 PM EDT Office Visit Gynecology/Obstetrics [facility] [address] [place] [address] Eugenio Rivera MD [address] [place] [address] [facility] Stress [facility] [address] [place] [address] Scheduled Orders Name Type Priority Associated Diagnoses Orde r Schedule US PREG FOLLOW-UP EACH FETUS Medical Imaging Routine Gestational diabetes mellitus (GDM) in third trimester controlled on oral hypoglycemic drug Other specified related conditions, third trimester Expected: 09/16/2023 (Approximate), Expires: 10/15/2024 Health Maintenance Due Date Last Done Comments [...] third trimester controlled on oral hypoglycemic drug Other specified related conditions, third trimester documented in this encounter
--- OUTSIDE RECORDS SUMMARY | 2023-10-01 14:14 | External Medical Summary | Summary of Care ---
Author Name Unknown Organization [facility] Address [address] [place] [address] Phone [phone] Care Team Providers Care Jewel Sorter Name Role Phone Unavailable Primary Care Provider Unavailabl e Reason for Visit * Reason Comments Follow Up GESTATIONAL DIABETES Encounter Details Date Type Department Care Team (Late st Contact Info) Description 09/09/2023 3:00 PM EDT Telemed[facility] Information [facility] Obstetrics Maternal Medicine, [place] [address] [place], [place] [id number] Tash Macdonald CRNP [address] [place], [place] [phone] Gestational diabetes mellitus (GDM) in third trimester controlled on oral hypoglycemic drug*; Supervision of high risk in third trimester; with 36 completed weeks gestation Allergies Active Allergy Reactions [...] for ADAPT today 09/0809/09/23: Adapt visit completed. 10/02 elevated FBS this week. Several elevated PP's. Pt agreeable to medication and would prefer to begin Metformin instead of insulin. Will begin Metformin 500mg PO at bedtime. Will work on diet control (may have to decrease carbohydrates with meals) over the next week. If PP's continue to be high, she is agreeable to adding morning dose of Metformin. 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 Never true 02/16/2023 [place] Depression Scale Answer Date Recorded [place] Depression Scale Total 6 09/09/2023 The thought [...] Progress Notes * Tash Macdonald CRNP - 09/09/2023 3:05 PM EDT Images from the original note were not included. MATERNAL MEDICINE VISIT Patient location: HOME. I was in a hospital or clinic location. After connecting through [employer],patient was verified with two unique identifiers. Patient (or authorized legal medical billing representative) was then informed that this was a Telemedicine visit and being conducted confidentially over secure lines. Methods to assure confidentiality were taken. Patient acknowledged consent and understanding of pr ivacy and security of the Telemedicine visit. The patient agreed to participate. Krystal Kruger is a 28 year old year old with intrauterine at 36w1d who presents to [facility] for management of diabetes in . CC/HPI: Here for f/u visit. Current issues include: Elevated FBS and some PP's Current management: Diet controlled Diet: gestational diabetes diet Exercise: walking Hypoglycemia episodes:N/A Recent growth scan: [facility] US: 08/17/2023 at 32w6d NUZHAT: 12.6 cm EFW: 2359 g (79 % Had[place]) Glucose review: Hemoglobin A1C last 3 results: No results found for: "HEM" She reports her home blood glucose as following: REVIEW OF SYSTEMS: headaches: no nausea/vomiting: reports frequent nausea reports movement: yes abdominal pain/tenderness/cramping/contractions: no vaginal bleeding: no vaginal leaking of fluid: no all other systems negative PHYSICAL EXAM: LMP 12/30/2022 (Exact Date) Constitutional: pleasant, well-developed, well nourished General: pleasant, alert and oriented Neuro: mood and affect normal, alert and oriented, no acute distress DISCUSSION: -We discussed continuing to test blood sugars 4 times a day (fasting, one hour after breakfast, lunch, and dinner) -Briefly reviewed GDM diet recommendations including, avoiding processed suagars, sweetened drinks,white flour. Recommend Counting carbohydrates - Breakfast: 45 grams carbohydrate, Snack: 15-20 grams carbohydrate, Lunch: 45 grams carbohydrate, Afternoon Snack: 15-20 grams carbohydrate, Dinner: 45 grams carbohydrate, bedtime snack 20-30 grams carbohydrate. Advised to have protein with every meal and snack, 70 grams total daily. Advised compliance with Make Up Artist consult. -We discussed eating a snack to help with sugar control in the fasting timeframe. -Encouraged 20-30 minutes a day of exercise (walking, light upper body strength training, yoga, stationary cycling, or swimming) -We discussed the predisposing factors for gestational diabetes including ethnic background, familyhistory, maternal body mass index, and use of some medications. We discussed that placental hormones often cause a woman who is not diabetic but has predisposing factors before to exhibit insulin resistance and gestational diabetes during -We discussed the goal of euglycemia in order to create a stable environment for the fetus. She is aware that with diabetes are at increased risk for multiple complications to both mother and fetus -I encouraged the patient to reach out to M in the event that she has any questions regarding diabetes management. -Reviewed medication instruction. To begin Metformin 500 mg one tablet PO qhs. RECOMMENDATIONS: Management: Metformin 500 mg one tablet PO QHS Continue diabetic diet Message sent to PAR to contact patient to schedule growth scan (last 08/17/23) Recommend twice weekly NSTs starting for A2GDM Recommend delivery during the 39th week of by EDC for A2GDM Follow up for glucose management in 1 week via [employer] Thank you for allowing us to participate in the care of this patient. Please call with any questions. Total time spent face to face in this visit was 20 minutes of which more than 50% was spent discussing and counseling the patient/caregiver(s) regarding gestational diabetes and medication. Total time spent on this date of service including non face to face was 30 minutes in preparation, delivery, and documentation of care provided to Krystal Kruegr, excluding time spent in performance of separatelybillable services. Details outlined above in impression and plan. YOUSIF Titus 09/09/2023 3:51 PM documented in this encounter Miscellaneous Notes * Assessment & Plan Note - Tash Macdonald CRNP - 09/09/2023 3:34 PM EDT Associated Problem(s): Gestational diabetes mellitus (GDM) in third trimester controlled on oral hypoglycemic drug Recommend ultrasound, surveillance and delivery as follows: [...] Team (Late st Contact Info) Description 09/15/2023 3:15 PM EDT Office Visit Gynecology/Obstetrics [facility] [address] [place] [address] Natasha Aldrich CRNP [address] [place] [address] 09/16/2023 9:30 AM EDT Pharmacy Pharmacy, [place] [address] [place], [place] [phone] Clinic, [place] [address] [place], [place] [phone] 09/21/2023 2:15 PM EDT Office Visit Gynecology/Obstetrics [facility] [address] [place] [address] Natasha Aldrich CRNP [address] [place] [address] 09/27/2023 4:30 PM EDT Office Visit Gynecology/Obstetrics [facility] [address] [place] [address] Starr Ramsey PA-C [address] [place] [address] Health Maintenance Due Date Last Done Comments [...] as of this encounter Visit Diagnoses Diagnosis Gestational diabetes mellitus (GDM) in third trimester controlled on oral hypoglycemic drug- Primary Supervision of high risk in third trimester Unspecified high-risk with 36 completed weeks gestation documented in this encounter
--- OUTSIDE RECORDS SUMMARY | 2023-10-01 14:14 | External Medical Summary ---
Author Name Unknown Address Unknown Organization K01:[facility] [place] [address] [facility] [address] Laboratory Report Ordering Provider Test Date Status CAROLYN MASON 09/09/2023 11:50:59 Final Observation Date Value Abnormality Reference (Units ) Status Streptococcus agalactiae DNA [Presence] in Specimen by MARION with probe detection 09/09/2023 11:50:59 Negative Negative Final No Group B Streptococcus det ected by culture-enhanced PCR (amplified probe).
The collection of vaginal/rectal swab specimen combinations (FDA approved specimen type) is optimal for the detection of Group B Streptococcus. Single source collection (vaginal only or rectal only) or alternate specimen sources may lead to false negative results. Performing Location [facility] [place] [address] [facility] [address]
--- OUTSIDE RECORDS SUMMARY | 2023-10-01 14:14 | External Medical Summary | Summary of Care ---
Author Name Unknown Organization [facility] Address [address] [place] [address] Phone [phone] Care Team Providers Care Pre Planning Advisor Name Role Phone Unavailable Primary Care Provider Unavailabl e Encounter Details Date Type Department Care Team (Late st Contact Info) Description 08/30/2023 Telephone Test Borer Obstetrics Maternal Medicine, [place] [address] [place] [address] [place], Nurse Test Borer [facility] [address] [place] [address] Allergies Active Allergy Reactions Criticality [...] a day 1 Kit 0 08/03/2023 Active Dalia ResearchTouch Delthai Lancets 33GIndications:Diet controlled gestational diabetes mellitus (GDM) in third trimester Test blood sugar 4 times a day 100 Each 2 08/03/2023 Active Dalia ResearchTouch Verio In Vitro Strip (Glucose Blood)Indications: t controlled gestational diabetes mellitus (GDM) in third trimester Test blood sugar 4 times a day 100 Strip 2 08/03/2023 Active documented as of this encounter (statuses as of 08/30/2023) Active Problems Problem Noted Date Diagnosed Date Supervision of high risk in third trim hasrha 08/20/2023 with 33 completed weeks gestation 07/30 [...] Recommend nutrition consult with RDN (Registered Dietitian Food Production Associate). 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 Never true 02/16/2023 [place] Depression Scale Answer Date Recorded [place] Depression Scale Total 6 02/23/2023 The thought [...] Encounter - Chio Ramos OSA - 08/30/2023 2:14 PM EST Phone call to patient. Left message on [employer] voice mail. Encouraged patient to return call to [facility] to assist with scheduling. * Telephone Encounter - Chio Ramos OSA - 08/30/2023 2:13 PM EST ----- Message from Jeanine Ramirez LPN sent at 08/30/2023 1:43 PM EST ----- Regarding: adapt Please schedule for follow up adapt documented in this encounter Plan of Treatment Upcoming Encounters Date Type Department Care Team (Late st Contact Info) Description 08/30/2023 2:30 PM EST Pharmacy Pharmacy, [address] [address] Clinic, [place] [address] [place] [phone] Iron deficiency anemia, unspecified iron deficiency anemia type* 09/01/2023 9:30 AM EST Office Visit Gynecology/Obstetric s [facility] [address] [place] [address] Natasha Aldrich CRNP [address] [place] [address] 09/15/2023 2:40 PM EDT Laboratory Outpatient Laboratory, [address] [address] [facility] [address] [place] [address] 09/15/2023 3:15 PM EDT Office Visit Gynecology/Obstetric [facility] [address] [place] [place] [address] Natasha Aldrich CRNP [address] [place] [address] 09/16/2023 9:30 AM EDT Pharmacy Pharmacy, [address] [address] Clinic, [place] [address] [place] [address] Health Maintenance Due Date Last Done Comments [...]
--- OUTSIDE RECORDS SUMMARY | 2023-10-01 14:14 | External Medical Summary | Summary of Care ---
Author Name Unknown Organization [facility] Address [address] [facility] [place] [address] Phone [phone] Care Team Providers Care Dry Press Operator Helper Name Role Phone Unavailable Primary Care Provider Unavailabl e Reason for Visit * Reason Comments Return Visit Non Stress Test Encounter Details Date Type Department Care Team (Late st Contact Info) Description 09/15/2023 2:45 PM EDT Office Visit Gynecology/Obstetric [facility] [address] [place] [address] Natasha Aldrich CRNP [address] [place] [address] [place], Non Stress Tests [facility] [address] [place] [address] Normal in third trimester*; Obesity in , [...] the morning. 30 Tablet 3 07/22/2023 Active AquafadasTouch Verio w/Device KitIndications:Diet controlled gestational diabetes mellitus (GDM) in third trimester Use as directed. 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 Never true 02/16/2023 [place] Depression Scale Answer Date Recorded [place] Depression Scale Total 6 09/09/2023 The thought [...] yesterday. Multiple messages have been sent by [facility] to get growth u/s scheduled and [...] Description 09/16/2023 9:30 AM EDT Pharmacy Pharmacy, [place] [address] [place] [address] Clinic, [facility] [address] [place] [address] 09/16/2023 1:45 PM EDT [facility] [address] [place] [address] 09/21/2023 1:45 PM EDT Office Visit Gynecology/Obstetrics [facility] [address] [place] [address] Natasha Aldrich CRNP [address] [place] [address] Keith Non Stress Tests [facility] [address] [place] [address] 09/24/2023 10:45 AM EDT Office Visit Gynecology/Obstetrics [facility] [address] [place] [address] Natasha Aldrich CRNP [address] [place] [address] Keith Non Stress Tests [facility] [address] [place] [address] 09/28/2023 10:15 AM EDT Office Visit Gynecology/Obstetrics [facility] [address] [place] [address] Alma Delia Black CRNP [address] [place] [address] Keith, Non Stress Tests [facility] [address] [place] [address] 10/01/2023 2:30 PM EDT Office Visit Gynecology/Obstetrics [facility] [address] [place] [address] Eugenio Rivera MD [address] [place] [address] Keith, Shirley Stress Tests [facility] [address] [place] [address] Scheduled Orders Name Type Priority Associated Diagnoses [...]
--- OUTSIDE RECORDS SUMMARY | 2023-10-01 14:14 | External Medical Summary | Summary of Care ---
Author Name Unknown Organization [facility] Address [address] [place] [address] Phone [phone] Care Team Providers Care Sound Engineer Name Role Phone Unavailable Primary Care Provider Unavailabl e Reason for Visit * Reason Onset Date Comments Anemia Follow-Up 09/23/2023 Encounter Details Date Type Department Care Team (Late st Contact Info) Description 09/16/2023 9:30 AM EDT Pharmacy Pharmacy, [place] [address] [place], [place] [phone] Clinic, [place] [address] [place] [address] Iron deficiency anemia, unspecified iron deficiency anemia type* Allergies Active Allergy Reactions Criticality Noted Date Comments Sulfadiazine 04/24/2022 Other reaction(s): hives, itching Sulfamethoxazole-Trimethopri m Rash 08/24/2018 Other reaction(s): hives, itching documented as of this encounter (statuses as of 09/23/2023) Medications Medication Sig Dispensed Refills Start Date [...] day 1 Kit 0 08/03/2023 Active OneTouch Delthai Lancets 33GIndications:Diet controlled gestational diabetes mellitus [...] as of this encounter (statuses as of 09/23/2023) Active Problems Problem Noted Date Diagnosed Date [...] 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 Early GTT WNL Eczema 01/10/2020 Eosinophilic esophagitis 01/10/2020 Migraine headache 01/10/2020 Estimated Date of Delivery Comme nts Yes 10/06/2023 Based on last me nstrual period of 12/30/2022 (Exact Date) documented as of this encounter (statuses as of 09/23/2023) Immunizations Name Administration Dates Next Due Seasonal [...] money to get more. Never true 02/16/2023 [place] Depression Scale Answer Date Recorded [place] Depression Scale Total 6 09/09/2023 The thought [...] as of this encounter Progress Notes * Maria Victoria Monreal, [facility] - 09/23/2023 2:40 PM EDT Patient Phone Numbers CBCd, ferritin, iron screen, retic panel, B12, FA ordered for 09/15/23. Patient has not completed. Called to remind. LMOVM. Also placed reminder on OB OV notes for tomorrow. Chanda, Maria Victoria Monreal [facility] Clinical Pharmacist documented in this encounter Plan of Treatment Upcoming Encounters Date Type Department Care Team (Late st Contact Info) Description 09/24/2023 10:45 AM EDT Office Visit Gynecology/Obstetrics [facility] [address] [place] [address] Natasha Aldrich CRNP [address] [place] [address] Shirley Parker Stress Tests [facility] [address] [place] [address] 09/28/2023 9:30 AM EDT Pharmacy Pharmacy, [place] [address] [place] [address] Clinic, [facility] [address] [place] [address] 09/28/2023 10:15 AM EDT Office Visit Gynecology/Obstetrics [facility] [address] [place] [address] Alma Delia Black CRNP [address] [place] [address] Shirley Parker Stress Tests [facility] [address] [place] [address] 10/01/2023 2:30 PM EDT Office Visit Gynecology/Obstetrics [facility] [address] [place] [address] Eugenio Rivera MD [address] [place] [address] Shirley Parker Stress Tests [facility] [address] [place] [address] Health Maintenance Due Date Last Done Comments Depression Screening 2007 Hepatitis B (1 of 3 - 19+ 3-dose series) 2014 COVID-19 Vaccine ( - 2022- season) 2023 04/24/2022, 05/02/2021, 08/30/2020 [...]
--- OUTSIDE RECORDS SUMMARY | 2023-10-01 14:15 | External Medical Summary | Summary of Care ---
Author Name Unknown Organization [facility] Address [address] [place] [address] Phone [phone] Care Team Providers Care T Rail Turner Name Role Phone Unavailable Primary Care Provider Unavailabl e Reason for Visit * Reason Onset Date Comments Referral 08/11/2023 Encounter Details Date Type Department Care Team (Late st Contact Info) Description 08/11/2023 Telephone Demolitionist Obstetrics Maternal Medicine, [place] [address] [place], [place] [phone] [place], Nurse Demolitionist [facility] [address] [place] [address] Referral Allergies Active Allergy Reactions Criticality Noted Date Comments Sulfadiazine 04/24/2022 Other reaction(s): hives, itching Sulfamethoxazole-Trimethopri m Rash 08/24/2018 Other reaction(s): hives, itching documented as of this encounter (statuses as of 08/11/2023) Medications Medication Sig Dispensed Refills Start Date [...] a day 1 Kit 0 08/03/2023 Active [employer] RevolutionTouch Delica Lancets 33GIndications:Diet controlled gestational diabetes mellitus (GDM) in third trimester Test blood sugar 4 times a day 100 Each 2 08/03/2023 Active [employer] RevolutionTouch VerSweetgreen In Vitro Strip (Glucose Blood)Indications: t controlled gestational diabetes mellitus (GDM) in third trimester Test blood sugar 4 times a day 100 Strip 2 08/03/2023 Active documented as of this encounter (statuses as of 08/11/2023) Active Problems Problem Noted Date Diagnosed Date Diet controlled gestational diabetes mellitus (GDM) in third trimester 08/03/2023 Iron deficiency anemia 07/27/2023 Antepartum anemia complicating 024 Overview: 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 Early GTT WNL Eczema 01/10/2020 Eosinophilic esophagitis 01/10/2020 Migraine headache 01/10/2020 Estimated Date of Delivery Comme nts Yes 10/06/2023 Based on last me nstrual period of 12/30/2022 (Exact Date) documented as of this encounter (statuses as of 08/11/2023) Immunizations Name Administration Dates Next Due Seasonal [...] Average Number of Drinks Not on file 02/27/2 019 Frequency of Binge Drinking Not on [...] money to get more. Never true 02/16/2023 [place] Depression Scale Answer Date Recorded [place] Depression Scale Total 6 02/23/2023 The thought [...] encounter Miscellaneous Notes * Telephone Encounter - Georgiana Sage CCMA - 08/11/2023 12:28 PM EST Estimated Date of Delivery: 10/06/23 Please schedule for 45 MINUTE ADAPT WITH OVERLAY OPERATOR, in time frame of within 1 week at location [facility] with the indication of GDM. Please schedule anatomy within the next 2-3 weeks. Referring Provider: Natasha Aldrich CRNP documented in this encounter Plan of Treatment Upcoming Encounters Date Type Department Care Team (Late st Contact Info) Description 08/17/2023 10:00 AM EST Pharmacy Pharmacy, [place] [address] [place] [address] Clinic, Anemia [address] [place] [address] 08/17/2023 2:30 PM EST Hem/Onc Treatment Hematology/Oncology Treatment, [place] [address] [place] [address] Ramya, Chair 4 Hem Onc Scenery [address] [facility], [place] [address] 08/18/2023 3:00 PM EST Office Visit Gynecology/Obstetrics [facility] [address] [facility] [address] Natasha Aldrich CRNP [address] [facility] [address] 08/20/2023 3:30 PM EST Telemedicine Demolitionist Obstetrics Maternal Medicine, [place] [address] [place] [address] Tash Macdonald CRNP [address] [place] [address] 09/01/2023 9:30 AM EST Office Visit Gynecology/Obstetrics [facility] [address] [facility] [place] [address] Natasha Aldrich CRNP [address] [place] [address] 09/15/2023 3:15 PM EDT Office Visit Gynecology/Obstetrics [facility] [address] Natasha Aldrich CRNP [address] [place] [address] Health Maintenance Due Date Last Done Comments Hepatitis B (1 of 3 - 3-dose series) 1995 Depression Screening 2007 COVID-19 Vaccine ( season) 2023 04/24/2022, 05/02/2021, [...]
--- OUTSIDE RECORDS SUMMARY | 2023-10-01 14:15 | External Medical Summary | Summary of Care ---
Author Name Unknown Organization [facility] Address [address] [place] [address] Phone [phone] Care Team Providers Care Pictures Editor Name Role Phone Unavailable Primary Care Provider Unavailabl e Encounter Details Date Type Department Care Team (Late st Contact Info) Description 08/17/2023 9:30 AM EST Office Visit Kitchen Mechanic OB Maternal Medicine [facility] Grace Omer [address] [place] [address] [address] [place], [place] [phone] Stepan Talley MD [address] [place], [place] [id number] Diet controlled gestational diabetes mellitus (GDM) in third trimester*; Obesity in , antepartum; Encounter for supervision of other normal , second trimester Allergies Active Allergy Reactions Criticality Noted Date Comments Sulfadiazine 04/24/2022 Other reaction(s): hives, itching Sulfamethoxazole-Trimethopri m Rash 08/24/2018 Other reaction(s): hives, itching documented as of this encounter (statuses as of 08/17/2023) Medications Medication Sig Dispensed Refills Start Date [...] as of this encounter (statuses as of 08/17/2023) Active Problems Problem Noted Date Diagnosed Date Diet controlled gestational diabetes mellitus (GDM) in third trimester 08/03/2023 Last Assessment & Plan: I reviewed the ultrasound with her. The anatomy that was visualized appears unremarkable and the overall estimated weight is consistent with the 79th percentile for the gestational age. The fetus is in the vertex presentation and delivered is normal at 13 cm. The patient states that she has had 1 or 2 elevated blood sugars the past week. I did review with her the blood glucose goals. She does understand that the elevated blood sugars were primarily caused by eating the simple carbohydrates. I also reviewed the plan of care if she will be put on medication. 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 Early GTT WNL Eczema 01/10/2020 Eosinophilic esophagitis 01/10/2020 Migraine headache 01/10/2020 Estimated Date of Delivery Comme nts Yes 10/06/2023 Based on last me nstrual period of 12/30/2022 (Exact Date) documented as of this encounter (statuses as of 08/17/2023) Immunizations Name Administration Dates Next Due Seasonal [...] money to get more. Never true 02/16/2023 [place] Depression Scale Answer Date Recorded [place] Depression Scale Total 6 02/23/2023 The thought [...] as of this encounter Progress Notes * Stepan Talley MD - 08/17/2023 9:35 AM EST MATERNAL MEDICINE VISIT Krystal Kruger is at 32w6d who presents to [facility] for an ultrasound and follow-up of her high risk . The patient is currently 32 weeks and 6 days gestational with gestational diabetes controlled by diet alone. She comes in for an evaluation of anatomy She is being seen today by Maternal- Medicine for the following reasons: Problem List Items Addressed This Visit Obesity in , antepartum Relevant Orders MFM US PREG FOLLOW UP EACH FETUS Diet controlled gestational diabetes mellitus (GDM) in third trimester - Primary I reviewed the ultrasound with her. The anatomy that was visualized appears unremarkable and the overall estimated weight is consistent with the 79th percentile for the gestational age. The fetus is in the vertex presentation and delivered is normal at 13 cm. The patient states that she has had 1 or 2 elevated blood sugars the past week. I did review with her the blood glucose goals. She does understand that the elevated blood sugars were primarily causedby eating the simple carbohydrates. I also reviewed the plan of care if she will be put on medication. Relevant Orders MFM US PREG FOLLOW UP EACH FETUS Other Visit Diagnoses Encounter for supervision of other normal , second trimester Relevant Orders MFM US PREG FOLLOW UP EACH FETUS As the patient controls her blood sugars with diet alone, there is no clinical indication for return. Thank you for allowing us to participate in the care of this patient. Please call with any questions. I spent 15 minutes with Ms. Kruger of which greater than 50% was spent in face to face consultation and coordination of care for the above. Stepan Talley MD 08/17/2023 9:35 AM documented in this encounter Miscellaneous Notes * Assessment & Plan Note - Stepan Talley MD - 08/17/2023 10:23 AM EST Associated Problem(s): Diet controlled gestational diabetes mellitus (GDM) in third trimester I reviewed the ultrasound with her. The anatomy that was visualized appears unremarkable and the overall estimated weight is consistent with the 79th percentile for the gestational age. The fetus is in the vertex presentation and delivered is normal at 13 cm. The patient states that she has had 1 or 2 elevated blood sugars the past week. I did review with her the blood glucose goals. She does understand that the elevated blood sugars were primarily causedby eating the simple carbohydrates. I also reviewed the plan of care if she will be put on medication. documented in this encounter Plan of Treatment Upcoming Encounters Date Type Department Care Team (Late st Contact Info) Description 08/17/2023 2:30 PM EST Hem/Onc Treatment Hematology/Oncology Treatment, [place] [address] [place] [address] [place], Chair 4 Hem Onc Scenery [address] [place] [address] 08/18/2023 3:00 PM EST Office Visit Gynecology/Obstetrics [facility] [address] [facility] [address] Natasha Aldrich CRNP [address] [place] [address] 08/20/2023 3:30 PM EST Telemedicine Kitchen Mechanic Obstetrics Maternal Medicine, [place] [address] [place] [address] Tash Macdonald CRNP [address] [place] [address] 09/01/2023 9:30 AM EST [facility] [address] [facility] [place] [address] Natasha Aldrich CRNP [address] [place] [address] 09/15/2023 3:15 PM EDT Office Visit Gynecology/Obstetrics [facility] [address] [facility] [place] [address] Natasha Aldrich CRNP [address] [place] [address] Scheduled Orders Name Type Priority Associated Diagnoses Orde r Schedule MFM US PREG FOLLOW UP EACH FETUS Medical Imaging Routine Diet controlled gestational diabetes mellitus (GDM) in third trimester Obesity in , antepartum Encounter for supervision of other normal , second trimester 3 Occurrences starting 08/17/2023 until 11/15/2023 Health Maintenance Due Date Last Done Comments [...] diabetes mellitus (GDM) in third trimester- Primary Obesity in , antepartum Obesity complicating , childbirth, or the puerperium, antepartum condition or complication Encounter for supervision of other normal , second trimester documented in this encounter
--- OUTSIDE RECORDS SUMMARY | 2023-10-01 14:15 | External Medical Summary | Summary of Care ---
Author Name Unknown Organization [facility] Address [address] [place] [address] Phone [phone] Care Team Providers Care Enrollment Services Vice President Name Role Phone Unavailable Primary Care Provider Unavailabl e Reason for Visit * Reason Comments Infusion Venofer 2/3 Encounter Details Date Type Department Care Team (Latest Contact Info) Description 08/09/2023 2:30 PM EST Hem/Onc Treatment Hematology/Oncology Treatment, [place] [address] [place] [address] Ramya, Chair 7 Hem Onc Scenery [address] [place] [address] Antepartum anemia complicating *; Iron deficiency anemia, unspecified iron deficiency anemia type Allergies Active Allergy Reactions Criticality Noted Date Comments Sulfadiazine 04/24/2022 Other reaction(s): hives, itching Sulfamethoxazole-Trimethopri m Rash 08/24/2018 Other reaction(s): hives, itching documented as of this encounter (statuses as of 08/09/2023) Medications Medication Sig Dispensed Refills Start Date [...] the morning. 30 Tablet 3 07/22/2023 Active [employer]act[employer] Visuel SystèmeTouch Verio w/Device KitIndications:Diet controlled gestational diabetes mellitus (GDM) in third trimester Use as directed. Test blood sugar 4 times a day 1 Kit 0 08/03/2023 Active [employer]uel SystèmeTouch Delica Lancets 33GIndications:Diet controlled gestational diabetes mellitus (GDM) in third trimester Test blood sugar 4 times a day 100 Each 2 08/03/2023 Active [employer]uel SystèmeTouch Verflaregames In Vitro Strip (Glucose Blood)Indications: t controlled gestational diabetes mellitus (GDM) in third trimester Test blood sugar 4 times a day 100 Strip 2 08/03/2023 Active documented as of this encounter (statuses as of 08/09/2023) Active Problems Problem Noted Date Diagnosed Date Diet controlled gestational diabetes mellitus (GDM) in third trimester 08/03/2023 Iron deficiency anemia 07/27/2023 Antepartum anemia complicating 024 Overview: Iron infusions 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 Early GTT WNL Eczema 01/10/2020 Eosinophilic esophagitis 01/10/2020 Migraine headache 01/10/2020 Estimated Date of Delivery Comme nts Yes 10/06/2023 Based on last me nstrual period of 12/30/2022 (Exact Date) documented as of this encounter (statuses as of 08/09/2023) Immunizations Name Administration Dates Next Due Seasonal [...] money to get more. Never true 02/16/2023 [place] Depression Scale Answer Date Recorded [place] Depression Scale Total 6 02/23/2023 The thought [...] Nursing Notes * Georgiana Burr LPN - 08/09/2023 3:09 PM EST 1440: Pt arrived for Venofer 2/3 infusion. PIV in LFA. Pt tolerated well. VSS. No complaints at this time. 1614: Pt tolerated Venofer infusion well. PIV removed intact. Pt to return in one week. Discharged in stable condition. documented in this encounter Plan of Treatment Upcoming Encounters Date Type Department Care Team ([place] Contact Info) Description 08/17/2023 10:00 AM EST Pharmacy Pharmacy, [place] [address] [place] [address] Clinic, [place] [address] [place] [facility] [address] 08/17/2023 2:30 PM EST Hem/Onc Treatment Hematology/Oncology Treatment, [place] [address] [place] [address] Ramya, Chair 4 Hem Onc Scenery [address] [place] [facility] [place] [address] 08/18/2023 3:00 PM EST Office Visit Gynecology/Obstetrics [facility] [address] [place] [address] Natasha lAdrich CRNP [address] [place] [address] 09/01/2023 9:30 AM EST Office Visit Gynecology/Obstetrics [facility] [address] [place] [address] Natasha Aldrich CRNP [address] [place] [address] 09/15/2023 3:15 PM EDT Office Visit Gynecology/Obstetrics [facility] [address] [place] [address] Natasha Aldrich CRNP [address] [place] [address] Health Maintenance Due Date Last Done Comments [...] MAR Action Action Date Dose Rate Site diphenhydrAMINE (Benadryl) inj 50 mg 50 mg, IV Push, ONCE PRN Other, Hypersensitivity Reaction, Starting on Wed08/09/23 at 1456, Until Wed08/10/23 at 1455, For 24 hours EPINEPHrine 1 MG/ML inj 0.3 mg 0.3 mg, Intramuscular, ONCE PRN Other, Hypersensitivity Reaction or Anaphylaxis, Starting on Wed08/09/23 at 1456, Until Wed08/10/23 at 1455, For 24 hours hEParin 100 UNIT/ML Lock Flush inj 500 Units 500 Units (5 mL), IV Lock, PRN Other, IV Flush, Starting on Wed08/09/23 at 1456, Until Wed08/10/23 at 1455, For 24 hours, Do not flush if lock, PICC, or central line not in place; IV infusing or unable to flush. Hydrocortisone Sod Suc (PF) (Solu-Cortef) inj 100 mg 100 mg, IV Push, ONCE PRN Other, Hypersensitivity Reaction, Starting on Wed08/09/23 at 1456, Until Wed08/10/23 at 1455, For 24 hours NSS infusion 500 mL, Intravenous, at 50 mL/hr, CONTINUOUS, Starting on Wed08/09/23 at 1600, Until Wed08/10/23 at 0159 Start Infusion 08/09/2023 2:40 PM EST 500 mL 50 mL/hr oxygen GAS Inhalation, OXYGEN, First dose on Wed08/09/23 at 1600, Until Discontinued, Device/Managed by: Low [...] is greater than or equal to 93% sodium chloride 0.9 % flush central line 10 mL 10 mL, IV Push, PRN Other, IV Flush, Starting on Wed08/09/23 at 1456, Until Wed08/10/23 at 1455, For 24 hours, Do not flush if lock, PICC, or central line not in place; IV infusing or unable to flush. Inactive Administered Medications - up to 3 most recent administrations Medication Order MAR Action Action Date Dose Rate Site Iron Sucrose (Venofer) 300 mg in NSS 250 mL ivpb 300 mg, IV Piggyback, ONCE, 1 dose, On Wed08/09/23 at 1630, Administer over 90 Minutes Start Infusion 08/09/2023 2:40 PM EST 300 mg 166.67 mL/hr documented in this encounter
--- OUTSIDE RECORDS SUMMARY | 2023-10-01 14:15 | External Medical Summary | Summary of Care ---
Author Name Unknown Organization [facility] Address [address] [place] [address] Phone [phone] Care Team Providers Care Animal Control Specialist Name Role Phone Unavailable Primary Care Provider Unavailabl e Reason for Visit * Reason Onset Date Comments Anemia Follow-Up 08/17/2023 Encounter Details Date Type Department Care Team (Late st Contact Info) Description 08/17/2023 10:00 AM [facility] Pharm[facility] Pharmacy, [place] [address] [place], [place] [phone] Clinic, [facility] [address] [place], [place] [phone] Iron deficiency anemia, unspecified iron deficiency anemia [...] 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 Never true 02/16/2023 [place] Depression Scale Answer Date Recorded [place] Depression Scale Total 6 02/23/2023 The thought [...] encounter Progress Notes * Maria Victoria Monreal, [facility] - 08/17/2023 1:54 PM EST Patient received first dose of Venofer 300 mg x 3 repletion series on 08/02 and appeared to have tolerated it without issue. Next scheduled: 08/09 Scheduled to be completed: 08/17 GA: 32w6d Estimated Date of Delivery: 10/06/23 Follow-up after completion of series to schedule repeat labs if appropriate prior to delivery. Anemia Clinic will continue to follow. Thank you for allowing us to participate in the care of thispatient. Thanks, Maria Victoria Monreal [facility] (P: [phone]) 08/17/2023 1:54 PM documented in this encounter Plan of Treatment Upcoming Encounters Date Type Department Care Team (Late st Contact Info) Description 08/17/2023 2:30 PM EST Hem/Onc Treatment Hematology/Oncology Treatment, [place] [address] [facility] [place] [address] Ramya, Chair 4 Hem Onc Scenery [address] [place] [address] 08/18/2023 2:30 PM EST Pharmacy Pharmacy, [place] [address] [place] [address] Clinic, [facility] [address] [place] [address] 08/18/2023 3:00 PM EST Office Visit Gynecology/Obstetrics [facility] [address] [place] [address] Natasha Aldrich CRNP [address] [place] [address] 08/20/2023 3:30 PM EST Telemedicine Arboriculturist Obstetrics Maternal Medicine, [place] [address] [place] [address] Tash Macdonald CRNP [address] [place] [address] 09/01/2023 9:30 AM EST Office Visit Gynecology/Obstetrics [facility] [address] [facility] [place] [address] Natasha Aldrich CRNP [address] [place] [address] 09/15/2023 3:15 PM EDT Office Visit Gynecology/Obstetrics [facility] [place] [address] [place] [address] Natasha Aldrich CRNP [address] [place] [address] Health Maintenance Due Date Last Done Comments [...]
--- OUTSIDE RECORDS SUMMARY | 2023-10-01 14:15 | External Medical Summary | Continuity of Care Document ---
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 Discharge Disposition: Home or Self Care Attending Physician: MD Taylor Cassandra Referring Physician: MAYELA Callahan, Marleni Bryant Allergies, Adverse Reactions, Alerts Substance Reaction Severity Status sulfADIAZINE itching hives Active Septra itching hives Active Immunizations Given and Recorded Vaccine Date Status Refusal Reason SARS-CoV-2 mRNA (Pfizer 12+) bivalent 04/24/22 Rec orded influenza virus vaccine, inactivated 03/20/22 Nish rded influenza virus vaccine, inactivated 1 04/04/21 Re corded influenza virus vaccine, inactivated 03/14/20 Nish rded SARS-CoV-2 (COVID-19) mRNA BNT-162b2 vax 05/02/21 Recorded SARS-CoV-2 (COVID-19) Ad26 vaccine 08/30/20 Record ed tetanus/diphtheria/pertuss, acel (Tdap) 06/27/20 G iven meningococcal conjugate vaccine 2 01/11/13 Recorde d human papillomavirus vaccine 3 06/23/12 Recorded human papillomavirus vaccine 4 02/22/12 Recorded human papillomavirus vaccine 5 12/21/11 Recorded influenza virus vaccine, H1N1 6 05/15/09 Recorded influenza virus vaccine, H1N1 7 04/16/09 Recorded 1Result Comment: from glenny jacome 2Result Comment: 2019-06-22: Historical information-source unspecified 3Result Comment: 2019-06-22: Historical information-source unspecified 4Result Comment: 2019-06-22: Historical information-source unspecified 5Result Comment: 2019-06-22: Historical information-source unspecified 6Result Comment: 2019-06-22: Historical information-source unspecified 7Result Comment: 2019-06-22: Historical information-source unspecified Medications aspirin 81 mg oral capsule Start: 07/29/23 15:25:00 EST Start Date: 07/29/23 Status: Ordered Benefiber Start: 05/28/21 14:52:00 EST, 3.5 g =, PO, tid Start Date: 05/28/21 Status: Ordered Colace 100 mg oral capsule Start: 07/17/21 16:42:00 EST, 1 cap, PO, Daily, Disp# 90 cap, Refills: 3, Pharmacy: [facility]/pharmacy #[id number] Start Date: 07/17/21 Status: Ordered IV iron Start: 08/05/23 13:41:00 EST, IV iron Start Date: 08/05/23 Status: Ordered omeprazole 10 mg oral delayed release capsule Start: 01/04/23 10:38:00 EDT, See Instructions, Disp# 90 cap, Refills: 0, TAKE 1 CAPSULE BY MOUTH EVERY DAY, Pharmacy: [facility] STORE [id number] Start Date: 01/04/23 Status: Ordered Multivitamins with Vitamin B Complex, Vitamin C, Minerals and L- Methylfolate oral capsule Start: 05/31/23 15:15:00 EST Start Date: 05/31/23 Status: Ordered promethazine 25 mg oral tablet TAKE 1 TABLET BY MOUTH EVERY 6 HOURS NEEDED FOR NAUSEA Start Date: 05/31/23 Status: Ordered Vitamin B12 Start: 07/29/23 15:25:00 EST Start Date: 07/29/23 Status: Ordered Zofran 4 mg oral tablet Start: 07/27/22 16:00:00 EST, 1 tab, PO, Daily, Disp# 5 tab, PRN: as needed for nausea/vomiting, Pharmacy: [facility]/pharmacy #[id number] Start Date: 07/27/22 Stop Date: 08/01/22 Status: Ordered Mental Status 08/05/23 Barriers to Learning one year None evide nt Mandatory Health Literacy Documentation Yes Health Literacy Communication Barriers N ever Primary Language Equ[place]ine[place] Problem List Condition Confirmation Course Effective Dates Status Health St atus Informant Chronic constipation Confirmed Active Eczema Confirmed Active Eosinophilic esophagitis Confirmed Active Migraine Confirmed Active Diagnosis Diagnosis Type Effective Dates Health Status Cl inical Service Informant Spitzoid neoplasm of uncertain malignant potential Discharge Diagnosis 08/05/23 Non-Specified Procedures Procedure Date Related Diagnosis Body Site Status Excision 08/05/23 Completed Shave biopsy and cauterization of skin 05/31/23 Completed US EXAM PELVIC COMPLETE 1 07/02/20 Completed US abdomen complete 2 10/23/19 Com pleted KUB Radiograph 3 10/16/19 Complete d 1Unremarkable pelvic US 2IMPRESSION: Normal study 3Findings: 2AP supine abdominal rafiographs are obtained. No prior studies are available for comparison at the time of dictation. There is a nonobstructed abdominal bowel gas pattern noting moderate colonic fecal retention. No evidence of intraperitoneal free air is seen on these suping images. There a no abnormal abdominal calcifications. A phlebolith is noted in the left hemipelvis. The bony structures appear intact. The lung basis are clear as visualized. 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 Comment: The neoplasm extends broadly to the base of the biopsy specimen and closely approximates the lateral margins. Re-excision is recommended to ensure complete removal. POSTOPERATIVE DIAGNOSIS: Same LOCATION: right upper back OPERATION PERFORMED: Elliptical excision of above with intermediate layered closure. PRE-OP LESION SIZE: 1.5 cm MARGINS: 5 mm EXCISIONAL DEFECT SIZE (INCLUDING MARGINS): 2.5 cm FINAL SUTURE LINE LENGTH: 5.1 cm SUTURES: 4-0 Monocryl, 4-0 Vicryl Rapide SURGEON: Brii Taylor MD ASSISSTANT: Josee Hilario LPN INDICATIONS: Excision for definitive treatment of biopsy proven atypical Spitz tumor OPERATION: The patient was taken to the surgical suite where the benefits and risks of the procedure were explained. After time was given for questions, a signed consent was obtained. The proposed excision area was prepped with an antiseptic solution and draped in the usual sterile fashion. 1% plain lidocaine (patient ) was infiltrated until adequate anesthesia was obtained. Approximately7 ml were given. A #15 blade was used to excise the lesion with 5 mm margins in a fusiform shape down to the deep subcutaneous fat. The excision was then completed within the deep subcutaneous plane using the same blade and a pair of small curved Iris scissors. A notch was placed at the medial apexof the specimen. The specimen was placed in a formalin-filled container labeled with the patient's identifying data and sent to pathology for examination. The wound edges were undermined with a combination of sharp and blunt dissection in the superficial subcutaneous plane and hemostasis was achieved with spot electrodesiccation and suture ligation as needed. The long axis of the closure was oriented so as to parallel the relaxed skin tension lines as much as possible to minimize any pull or distortion on nearby anatomic structures. The defect was then closed in a layered fashion consisting of absorbable sutures in the deep subcutaneous plane followed by separate closure of the superficial s ubcutaneous tissue and skin with superficial cutaneous sutures. Layered closure was required to eliminate space, relieve tension, prevent deformity, and approximate the edges of the defect which extended to the deep subcutaneous tissues. A pressure dressing was placed with petrolatum ointment, non-stick pad, gauze, and paper tape. Estimated blood loss was less than 5 ml and there were no complications. The patient received both written and verbal wound care instructions and left the Dermatology Clinic in good condition. Follow-up as needed for above and as scheduled Marleni Callahan PA-C or skin exam. Electronic Signature on File Electronically Reviewed/Signed by: Brii Taylor MD Author Signature Dt/Tm:08/05/2023 04:14 PM Department of Dermatology CS Patient Care team information Care Team Personnel Name: YOUSIF Maldonado Shari A Position: Nurse Pract - Family Med Member Role: Primary Care Provider Address: Address: [address] [place] [address] Care Team Related Persons Name: KIRSTIE POTTER
--- OUTSIDE RECORDS SUMMARY | 2023-10-01 14:15 | External Medical Summary | Summary of Care ---
Author Name Unknown Organization [facility] Address [address] [place] [address] Phone [phone] Care Team Providers Care Purchasing Specialist Name Role Phone Unavailable Primary Care Provider Unavailabl e Reason for Visit * Reason Onset Date Comments Referral 08/11/2023 Encounter Details Date Type Department Care Team (Late st Contact Info) Description 08/11/2023 Telephone Cellophane Bath Mixer Obstetrics Maternal Medicine, [place] [address], [place] [id number] [place], Nurse Cellophane Bath Mixer [facility] [address] [place] [address] Referral Allergies Active Allergy Reactions [...] a day 1 Kit 0 08/03/2023 Active UnmetricTouch Delica Lancets 33GIndications:Diet controlled gestational diabetes mellitus (GDM) in third trimester Test blood sugar 4 times a day 100 Each 2 08/03/2023 Active UnmetricTouch VerPeople to Remember In Vitro Strip (Glucose Blood)Indications: t controlled [...] 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 Never true 02/16/2023 [place] Depression Scale Answer Date Recorded [place] Depression Scale Total 6 02/23/2023 The thought [...] encounter Miscellaneous Notes * Telephone Encounter - Joi Dale OSA - 08/11/2023 1:12 PM EST Appts scheduled * Telephone Encounter - Georgiana Sage CCMA - 08/11/2023 12:28 PM EST Estimated Date of Delivery: 10/06/23 Please schedule for 45 MINUTE ADAPT WITH CLINICAL HAEMATOLOGIST, in time frame of within 1 week at location [facility] with the indication of GDM. Please schedule anatomy within the next 2-3 weeks. Referring Provider: Natasha Aldrich CRNP documented in this encounter Plan of Treatment Upcoming Encounters Date Type Department Care Team (Late st Contact Info) Description 08/17/2023 10:00 AM EST Pharmacy Pharmacy, [place] [address] [place] [address] [facility], [place] [address] [place] [address] 08/17/2023 2:30 PM EST Hem/Onc Treatment Hematology/Oncology Treatment, [place] [address] [place], [place] [address] Ramya, Chair 4 Hem Onc Scenery [address] [place], [place] [address] 08/18/2023 3:00 PM EST Office Visit Gynecology/Obstetrics [facility] [address] [place] [address] Natasha Aldrich CRNP [address] [place] [address] 08/20/2023 3:30 PM EST Telemedicine Cellophane Bath Mixer Obstetrics Maternal Medicine, [place] [address] [place] [address] Tash Macdonald CRNP [address] [place] [address] 09/01/2023 9:30 AM EST Office Visit Gynecology/Obstetrics [facility] [address] [place] [address] Natasha Aldrich CRNP [address] [place] [address] 09/15/2023 3:15 PM EDT Office Visit Gynecology/Obstetrics [facility] [address] [place] [address] Natasha Aldrich CRNP [address] [place] [address] Health Maintenance Due Date Last Done Comments [...]
--- OUTSIDE RECORDS SUMMARY | 2023-10-01 14:15 | External Medical Summary | Summary of Care ---
Author Name Unknown Organization [facility] Address [address] [facility] [address] Phone [phone] Care Team Providers Care Anesthesiology Physician Name Role Phone Unavailable Primary Care Provider Unavailabl e Reason for Visit * Reason Comments Return Visit Encounter Details Date Type Department Care Team (Late st Contact Info) Description 08/18/2023 3:00 PM EST Office Visit Gynecology/Obstetric s [facility] [address] [place] [address] Natasha Aldrich CRNP [address] [place] [phone] Normal in third trimester*; Obesity in , antepartum; Rh negative status during in third trimester; INFORMATION; Antepartum anemia complicating ; Diet controlled gestational diabetes mellitus (GDM) in third trimester Allergies Active Allergy Reactions Criticality Noted Date Comments Sulfadiazine 04/24/2022 Other reaction(s): hives, itching Sulfamethoxazole-Trimethopri m Rash 08/24/2018 Other reaction(s): hives, itching documented as of this encounter (statuses as of 08/18/2023) Medications Medication Sig Dispensed Refills Start Date [...] as of this encounter (statuses as of 08/18/2023) Active Problems Problem Noted Date Diagnosed Date [...] 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 Early GTT WNL Eczema 01/10/2020 Eosinophilic esophagitis 01/10/2020 Migraine headache 01/10/2020 Estimated Date of Delivery Comme nts Yes 10/06/2023 Based on last me nstrual period of 12/30/2022 (Exact Date) documented as of this encounter (statuses as of 08/18/2023) Immunizations Name Administration Dates Next Due Seasonal [...] money to get more. Never true 02/16/2023 [place] Depression Scale Answer Date Recorded [place] Depression Scale Total 6 02/23/2023 The thought [...] Sign Reading Time Taken Comments Blood Pressure 122/78 08/18/2023 3:02 PM EST Pulse - - Temperature - - Respiratory Rate - - Oxygen Saturation - - Inhaled Oxygen Concentration - - Weight 92.1 kg (203 lb) 08/18/2023 3:02 PM EST Height 157.5 cm (5' 2") 08/18/2023 3:02 PM EST Body Mass Index 37.13 08/18/2023 3:02 PM EST documented in this encounter Progress Notes * Natasha Aldrich CRNP - 08/18/2023 3:54 PM EST 33w Dx with GDM since last visit. She is doing her best to manage blood sugars. Readings are good, veryfew are elevated. Has appt Wednesday with MFM to review blood sugars, likely get enrolled in ADAPT program. Had growth u/s with MFM yesterday, which was good. Feeling overwhelmed with diagnosis. Reassured her that some elevated readings are ok, not detrimental to the . She has no other concerns today. Reports good movement. Denies contractions, bleeding, LOF. YOUSIF Chavez * Annette Camarena LPN - 08/18/2023 3:02 PM EST 33w0d Questions about GDM documented in this encounter Plan of Treatment Upcoming Encounters Date Type Department Care Team (Late st Contact Info) Description 08/20/2023 3:30 PM EST Telemedicine Investor Relations Specialist Obstetrics Maternal Medicine, [place] [address] [place] [address] Tash Macdonald CRNP [address] [place] [address] 08/26/2023 2:30 PM EST Pharmacy Pharmacy, [place] [address] [place] [address] Clinic, [facility] [address] [place] [address] 09/01/2023 9:30 AM EST Office Visit [facility]necology[facility] [address] Natasha Aldrich CRNP [address] [facility] [place] [address] 09/15/2023 3:15 PM EDT Office Visit Gynecology/Obstetrics [facility] [address] [place] [address] Natasha Aldrich CRNP [address] [place] [address] Health Maintenance Due Date Last Done Comments [...] trimester INFORMATION Antepartum anemia complicating Anemia, antepartum Diet controlled gestational diabetes mellitus (GDM) in third trimester documented in this encounter
--- OUTSIDE RECORDS SUMMARY | 2023-10-01 14:15 | External Medical Summary | Summary of Care ---
Author Name Unknown Organization [facility] Address [address] [place] [address] Phone [phone] Care Team Providers Care Asset Protection Manager Name Role Phone Unavailable Primary Care Provider Unavailabl e Encounter Details Date Type Department Care Team (Late st Contact Info) Description 07/27/2023 Orders Only Hematology/Oncology Treatment, [place] [address] [place] [address] Natasha Aldrich CRNP [address] [place] [address] Allergies Active Allergy Reactions Criticality Noted Date Comments Sulfadiazine 04/24/2022 Other reaction(s): hives, itching Sulfamethoxazole-Trimethopri m Rash 08/24/2018 Other reaction(s): hives, itching documented as of this encounter (statuses as of 08/13/2023) Medications Medication Sig Dispensed Refills Start Date [...] as of this encounter (statuses as of 08/13/2023) Active Problems Problem Noted Date Diagnosed Date Diet controlled gestational diabetes mellitus (GDM) in third trimester 08/03/2023 Iron deficiency anemia 07/27/2023 Antepartum anemia complicating 024 Overview: 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 Early GTT WNL Eczema 01/10/2020 Eosinophilic esophagitis 01/10/2020 Migraine headache 01/10/2020 Estimated Date of Delivery Comme nts Yes 10/06/2023 Based on last me nstrual period of 12/30/2022 (Exact Date) documented as of this encounter (statuses as of 08/13/2023) Immunizations Name Administration Dates Next Due Seasonal [...] money to get more. Never true 02/16/2023 [place] Depression Scale Answer Date Recorded [place] Depression Scale Total 6 02/23/2023 The thought [...] Description 08/17/2023 9:30 AM EST Office Visit Equipment Oiler OB Maternal Medicine [facility] Grace Omer [address] [place] [address] [address] [place] [address] Stepan Talley MD [address] [place] [address] 08/17/2023 9:30 AM EST Imaging Maternal Medicine [facility] Grace Omer [address] [place] [address] [address] [place] [address] 08/17/2023 10:00 AM EST Pharmacy Pharmacy, [place] [address] [place] [address] Clinic, [place] [address] [place] [address] 08/17/2023 2:30 PM EST Hem/Onc Treatment Hematology/Oncology Treatment, [place] [address] [place] [address] Ramya, Chair 4 Hem Onc Scenery [address] [place] [address] 08/18/2023 3:00 PM EST Office Visit Gynecology/Obstetrics [facility] [address] [facility] [place] [address] Natasha Aldrich CRNP [address] [place] [address] 08/20/2023 3:30 PM EST Telemedicine Equipment Oiler Obstetrics Maternal Medicine, [place] [address] [place] [address] Tash Macdonald CRNP [address] [place] [address] 09/01/2023 9:30 AM EST Office Visit Gynecology/Obstetrics [facility] [address] [place], [place] [address] Natasha Aldrich CRNP [address] [place] [address] 09/15/2023 3:15 PM EDT Office Visit Gynecology/Obstetrics [facility] [address] [place] [address] Natasha Aldrich CRNP [address] [place] [address] Health Maintenance Due Date Last Done Comments [...]
--- OUTSIDE RECORDS SUMMARY | 2023-10-01 14:16 | External Medical Summary | Summary of Care ---
Author Name Unknown Organization [facility] Address [address] [place] [address] Phone [phone] Care Team Providers Care Public Relations Senior Associate Name Role Phone Unavailable Primary Care Provider Unavailabl e Encounter Details Date Type Department Care Team (Late st Contact Info) Description 07/28/2023 Orders Only Pharmacy, [place] [address] [place] [address] [facility] [address] [place] [address] Allergies Active Allergy Reactions Criticality Noted Date Comments Sulfadiazine 04/24/2022 Other reaction(s): hives, itching Sulfamethoxazole-Trimethopri m Rash 08/24/2018 Other reaction(s): hives, itching documented as of this encounter (statuses as of 07/28/2023) Medications Medication Sig Dispensed Refills Start Date [...] as of this encounter (statuses as of 07/28/2023) Active Problems Problem Noted Date Diagnosed Date Iron deficiency anemia 07/27/2023 Antepartum anemia complicating 024 Overview: 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 Early GTT WNL Eczema 01/10/2020 Eosinophilic esophagitis 01/10/2020 Migraine headache 01/10/2020 Estimated Date of Delivery Comme nts Yes 10/06/2023 Based on last me nstrual period of 12/30/2022 (Exact Date) documented as of this encounter (statuses as of 07/28/2023) Immunizations Name Administration Dates Next Due Seasonal [...] money to get more. Never true 02/16/2023 [place] Depression Scale Answer Date Recorded [place] Depression Scale Total 6 02/23/2023 The thought [...] Care Team (Late st Contact Info) Description 08/03/2023 8:00 AM EST Laboratory [facility] [place] [phone] [place], [facility] [place] [address] 08/03/2023 10:00 AM EST Pharmacy Pharmacy, [address] [address] 08/18/2023 3:00 PM EST [facility] [address] [place] [address] Natasha Aldrich CRNP [address] [place] [address] 09/01/2023 9:30 AM EST [facility] [address] [place] [address] Natasha Aldrich CRNP [address] [place] [address] 09/15/2023 3:15 PM EDT Office Visit [facility] [address] [place] [address] Natasha Aldrich CRNP [address] [place] [address] Health Maintenance Due Date Last Done Comments [...]
--- OUTSIDE RECORDS SUMMARY | 2023-10-01 14:16 | External Medical Summary ---
Author Name Unknown Address Unknown Organization [facility] [address] [place] [address] Laboratory Report Ordering Provider Test Date Status ARNIE PRIEST 08/03/2023 11:24:47 Final Observation Date Value Abnormality Reference (Units ) Status Glucose [Mass/volume] in Serum or Plasma --3 hours post dose glucose 08/03/2023 11:24:47 85 70-139 (mg/dL) Final Performing Location [facility] [place] [address] [place] [address]
--- OUTSIDE RECORDS SUMMARY | 2023-10-01 14:16 | External Medical Summary | Summary of Care ---
Author Name Unknown Organization [facility] Address [address] [facility] [address] Phone [phone] Care Team Providers Care Extended Insurance Clerk Name Role Phone Unavailable Primary Care Provider Unavailabl e Encounter Details Date Type Department Care Team (Late st Contact Info) Description 08/03/2023 Telephone Gynecology/Obstetrics Ana M Parker [address] [place] [address] Natasha Aldrich CRNP [address] [place] [phone] Allergies Active Allergy Reactions Criticality Noted Date Comments Sulfadiazine 04/24/2022 Other reaction(s): hives, itching Sulfamethoxazole-Trimethopri m Rash 08/24/2018 Other reaction(s): hives, itching documented as of this encounter (statuses as of 08/03/2023) Medications Medication Sig Dispensed Refills Start Date [...] as of this encounter (statuses as of 08/03/2023) Active Problems Problem Noted Date Diagnosed Date Diet controlled gestational diabetes mellitus (GDM) in third trimester 08/03/2023 Iron deficiency anemia 07/27/2023 Antepartum anemia complicating 024 Overview: 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 Early GTT WNL Eczema 01/10/2020 Eosinophilic esophagitis 01/10/2020 Migraine headache 01/10/2020 Estimated Date of Delivery Comme nts Yes 10/06/2023 Based on last me nstrual period of 12/30/2022 (Exact Date) documented as of this encounter (statuses as of 08/03/2023) Immunizations Name Administration Dates Next Due Seasonal [...] money to get more. Never true 02/16/2023 [place] Depression Scale Answer Date Recorded [place] Depression Scale Total 6 02/23/2023 The thought [...] encounter Miscellaneous Notes * Telephone Encounter - Dee Lange RN - 08/03/2023 2:54 PM EST Patient called in and made aware of message below. Patient advised how to check glucoses and goals for glucose levels. Patient will write down glucose levels and report at next visit. Patient verbalized understanding, had questions about diet and exercise- Instructed patient to follow exercise and diet recommendations in book given. * Telephone Encounter - Dee Lange RN - 08/03/2023 1:38 PM EST Attempted to call patient. No answer, LVM to return call. * Telephone Encounter - Natasha Aldrich CRNP - 08/03/2023 1:25 PM EST Pt failed 3hr GTT. Dx with gestational diabetes. Needs to pharmacy picking technician glucometer and supplies and startchecking sugars. I sent them to [facility] on [facility]. Can watch video on One Touch website for help using glucometer. Write numbers down and bring to each appt. Review timing of testing: fasting, and 1 hr after each meal. documented in this encounter Plan of Treatment Upcoming Encounters Date Type Department Care Team (Late st Contact Info) Description 08/09/2023 2:30 PM EST Hem/Onc Treatment Hematology/Oncology Treatment, [place] [address] [facility] [place] [address] Ramya, Chair 7 Hem Onc Scenery [address] [place] [address] 08/17/2023 10:00 AM EST Pharmacy Pharmacy, [place] [address] [place] [address] Clinic, [facility] [address] [place] [address] 08/18/2023 3:00 PM EST Office Visit Gynecology/Obstetrics Ana M Parker [address] [place] [address] Natasha Aldrich CRNP [address] [place] [address] 09/01/2023 9:30 AM EST Office Visit Gynecology/Obstetrics Ana M Parker [address] [place] [address] Natasha Aldrich CRNP [address] [place] [address] 09/15/2023 3:15 PM EDT Office Visit Gynecology/Obstetrics Ana M Parker [address] [place] [address] Natasha Aldrich CRNP [address] [place] [address] Health Maintenance Due Date Last Done Comments [...]
--- OUTSIDE RECORDS SUMMARY | 2023-10-01 14:16 | External Medical Summary ---
Author Name Unknown Address Unknown Organization K0G:[facility] [place] [address] [place] [address] Laboratory Report Ordering Provider Test Date Status ARNIE PRIEST 08/03/2023 09:25:18 Final Observation Date Value Abnormality Reference (Units ) Status Glucose [Mass/volume] in Serum or Plasma --1 hour post dose glucose 08/03/2023 09:25:18 203 Above high normal 70-179 (mg/dL) Final Performing Location [facility] [place] [address] [place] [address]
--- OUTSIDE RECORDS SUMMARY | 2023-10-01 14:16 | External Medical Summary | Summary of Care ---
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 Never true 02/16/2023 [place] Depression Scale Answer Date Recorded [place] Depression Scale Total 6 02/23/2023 The thought [...] GTT. Dx with gestational diabetes. Needs to fern picker glucometer and supplies and startchecking sugars. I sent them to [facility] on [facility]. Can watch video on One Touch website for help using glucometer. Write numbers down and bring to each appt. Review timing of testing: fasting, and 1 hr after each meal. documented in this encounter Plan of Treatment Upcoming Encounters Date Type Department Care Team (Late st Contact Info) Description 08/09/2023 2:30 PM EST Hem/Onc Treatment Hematology/Oncology Treatment, [facility] [address] [place] [address] Ramya, Chair 7 Hem Onc Scenery [address] [facility] [place] [address] 08/17/2023 10:00 AM EST Pharmacy Pharmacy, [place] [address] [place] [facility] [place] [address] Clinic, [facility] [address] [place] [facility] [address] 08/18/2023 3:00 PM EST Office Visit Gynecology/Obstetrics [facility] [address] [place] [address] Natasha Aldrich CRNP [address] [place] [address] 09/01/2023 9:30 AM EST Office Visit Gynecology/Obstetrics [facility] [address] [facility] [address] Natasha Aldrich CRNP [address] [place] [address] 09/15/2023 3:15 PM EDT Office Visit Gynecology/Obstetrics [facility] [address] [facility] [address] Natasha Aldrich CRNP [address] [place] [address] Health Maintenance Due Date Last Done Comments [...]
--- OUTSIDE RECORDS SUMMARY | 2023-10-01 14:16 | External Medical Summary | Summary of Care ---
Author Name Unknown Organization [facility] Address [address] [facility] [place] [address] Phone [phone] Care Team Providers Care Electron Beam Photo Mask Maker Name Role Phone Unavailable Primary Care Provider Unavailabl e Encounter Details Date Type Department Care Team (Late st Contact Info) Description 07/23/2023 Telephone Gynecology/Obstetrics Ana M Parker [address] [place] [address] Natasha Aldrich CRNP [address] [place] [phone] Allergies Active Allergy Reactions Criticality Noted Date Comments Sulfadiazine 04/24/2022 Other reaction(s): hives, itching Sulfamethoxazole-Trimethopri m Rash 08/24/2018 Other reaction(s): hives, itching documented as of this encounter (statuses as of 07/26/2023) Medications Medication Sig Dispensed Refills Start Date [...] as of this encounter (statuses as of 07/26/2023) Active Problems Problem Noted Date Diagnosed Date Antepartum anemia complicating 024 Overview: 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 Early GTT WNL Eczema 01/10/2020 Eosinophilic esophagitis 01/10/2020 Migraine headache 01/10/2020 Estimated Date of Delivery Comme nts Yes 10/06/2023 Based on last me nstrual period of 12/30/2022 (Exact Date) documented as of this encounter (statuses as of 07/26/2023) Immunizations Name Administration Dates Next Due Seasonal [...] money to get more. 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 around [phone] to schedule this documented in this encounter Plan of Treatment Upcoming Encounters Date Type Department Care Team (Late st Contact Info) Description 07/27/2023 4:00 PM EST Pharmacy Pharmacy, [address] [address] [facility] [place] [address] [place] [address] 08/03/2023 8:00 AM EST [facility] [address] [place] [phone] Altagracia Parker [address] [place] [address] 08/18/2023 3:00 PM EST Office Visit Gynecology/Obstetrics Ana M Parker [address] [place] [address] Natasha Aldrich CRNP [address] [place] [address] 09/01/2023 9:30 AM EST Office Visit Gynecology/Obstetrics [facility] [address] [place] [address] Natasha Aldrich CRNP [address] [place] [address] 09/15/2023 3:15 PM EDT Office Visit Gynecology/Obstetrics [facility] [address] [place] [address] Natasha Aldrich CRNP [address] [place] [address] Health Maintenance Due Date Last Done Comments [...]
--- OUTSIDE RECORDS SUMMARY | 2023-10-01 14:16 | External Medical Summary | Summary of Care ---
Author Name Unknown Organization [facility] Address [address] [place] [address] Phone [phone] Care Team Providers Care Software Engineer Web Applications Name Role Phone Unavailable Primary Care Provider Unavailabl e Reason for Referral * Evaluate & Treat - Unlimited Visits (Within 10 days (routine)) - Pending Review Specialty Diagnoses / Procedures Referred By Antonio akers Referred To Contact Pharmacist / Pharmacy Diagnoses PAT (iron deficiency anemia) aNtasha Aldrich CRNP [address] [place] [address] Referral ID Status Reason Start Date Expiration Date Visits Requested Visits Authorized [id number] Pending Review Specialty Services Required 07/22/2023 99 99 Question Answer Referral Priority Within 10 days (routine) Where should this appointment be scheduled? Juan Carlos Referring Provider Role: Specialist Specialty: insurance agency sales manager Reason for Referral: Anemia Comments Pharmacist Medication Therapy Management: Iron deficiency anemia Javon Park RN Reason for Visit * Reason Onset Date Comments Blood Management Program 07/22/2023 Encounter Details Date Type Department Care Team (Late st Contact Info) Description 07/22/2023 Telephone Patient Blood Management, [place] [address] [place] [address] Natasha Aldrich CRNP [address] [place] [address] Blood Management Program Allergies Active Allergy Reactions Criticality Noted Date [...] 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 Never true 02/16/2023 [place] Depression Scale Answer Date Recorded [place] Depression Scale Total 6 02/23/2023 The thought [...] encounter Miscellaneous Notes * Telephone Encounter - Nichol Mckeon RN - 07/27/2023 4:07 PM EST [place] plan built and routed for signature. Prior auth not needed for venofer. Can send to scheduling once beacon plan is signed. * Telephone Encounter - Javon Park RN - 07/22/2023 2:42 PM EST Recommend IV iron per OB MTM guidelines. Patient agreeable, prefers infusion at [facility]. documented in this encounter Plan of Treatment Upcoming Encounters Date Type Department Care Team (Late st Contact Info) Description 08/03/2023 8:00 AM EST Laboratory Laboratory, [facility] [address] [place] [phone] ParkerAltagracia koch [address] [place] [address] 08/03/2023 10:00 AM EST Pharmacy Pharmacy, [place] [address] [place] [address] Clinic, [place] [address] [place] [address] 08/18/2023 3:00 PM EST Office Visit Gynecology/Obstetrics Ana M Parker [address] [place] [address] Natasha Aldrich CRNP [address] [place] [address] 09/01/2023 9:30 AM EST Office Visit Gynecology/Obstetrics Ana M Parker [address] [place] [address] Natasha Aldrich CRNP [address] [place] [address] 09/15/2023 3:15 PM EDT Office Visit Gynecology/Obstetrics Ana M [place] [address] Natasha Aldrich CRNP [address] [place] [address] Scheduled Referrals Name Type Priority Associated Diagnoses Orde r Schedule PHARMACIST MEDS THERAPY MGMT REFERRAL OP Referral Within 10 days (routine) PAT (iron deficiency anemia) Ordered: 07/22/2023 Health Maintenance Due Date Last Done Comments [...] as of this encounter Visit Diagnoses Diagnosis PAT (iron deficiency anemia)- Primary Iron deficiency anemia, unspecified documented in this encounter
--- OUTSIDE RECORDS SUMMARY | 2023-10-01 14:16 | External Medical Summary ---
Author Name Unknown Address Unknown Organization K0G:[facility] [place] [address] [place] [address] Laboratory Report Ordering Provider Test Date Status LUIS PRIESTELVIRA 08/03/2023 08:19:51 Final Based on ACOG guideline, ges tational diabetes mellitus is diagnosed when any of the following is met:
Fasting is greater than or equal to 95 mg/dL
1 hour is greater than or equal to 180 mg/dL
2 hour is greater than or equal to 155 mg/dL
3 hour is greater than or equal to 140 mg/dL Observation Date Value Abnormality Reference (Units ) Status Glucose, fasting 08/03/2023 08:19:51 88 70- 94 (mg/dL) Final Performing Location [facility] [place] [address] [place] [address]
--- OUTSIDE RECORDS SUMMARY | 2023-10-01 14:16 | External Medical Summary | Summary of Care ---
Author Name Unknown Organization [facility] Address [address] [place] [address] Phone [phone] Care Team Providers Care Brim Welt Sewing Machine Operator Name Role Phone Unavailable Primary Care Provider Unavailabl e Reason for Visit * Reason Onset Date Comments Anemia Follow-Up 08/03/2023 Encounter Details Date Type Department Care Team (Late st Contact Info) Description 08/03/2023 10:00 AM [facility] Pharmacy Pharmacy, [place] [address] [place], [place] [id number] Clinic, [facility] [address] [place], [place] [id number] Iron deficiency anemia, unspecified iron deficiency anemia [...] the morning. 30 Tablet 3 07/22/2023 Active [employer]Touch Verio w/Device KitIndications:Diet controlled gestational diabetes mellitus (GDM) in third trimester Use as directed. 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 Never true 02/16/2023 [place] Depression Scale Answer Date Recorded [place] Depression Scale Total 6 02/23/2023 The thought [...] this encounter Progress Notes * Maria Victoria Monreal RPh - 08/03/2023 1:46 PM EST Patient received first dose of Venofer 300 mg x 3 repletion series on 08/02 and appeared to have tolerated it without issue. Next scheduled: 08/09 Scheduled to be completed: TBA GA: 30w6d Estimated Date of Delivery: 10/06/23 Follow-up after completion of series to schedule repeat labs if appropriate prior to delivery. Anemia Clinic will continue to follow. Thank you for allowing us to participate in the care of thispatient. Thanks, Maria Victoria Monreal [facility] Clinical Pharmacist [facility] Anemia Clinic (P: [phone]) 08/03/2023 1:48 PM documented in this encounter Plan of Treatment Upcoming Encounters Date Type Department Care Team (Late st Contact Info) Description 08/09/2023 2:30 PM EST Hem/Onc Treatment Hematology/Oncology Treatment, [place] [address] [place] [address] Park, Chair 7 Hem Onc Scenery [address] [place] [address] 08/17/2023 10:00 AM EST Pharmacy Pharmacy, [place] [address] [place] [address] Clinic, [facility] [address] [place] [address] 08/18/2023 3:00 PM EST Office Visit Gynecology/Obstetrics [facility] [address] [place] [address] Natasha Aldrich CRNP [address] [place] [address] 09/01/2023 9:30 AM EST Office Visit Gynecology/Obstetrics [facility] [address] [facility] [address] Natasha Aldrich CRNP [address] [place] [address] 09/15/2023 3:15 PM EDT Office Visit Gynecology/Obstetrics [facility] [address] [facility] [place] [address] Natasha Aldrich CRNP [address] [place] [address] Health Maintenance Due Date Last Done Comments [...]
--- OUTSIDE RECORDS SUMMARY | 2023-10-01 14:16 | External Medical Summary | Summary of Care ---
Author Name Unknown Organization [facility] Address [address] [place] [address] Phone [phone] Care Team Providers Care Slab Lifting Supervisor Name Role Phone Unavailable Primary Care Provider Unavailabl e Reason for Referral * Evaluate & Treat - Unlimited Visits (Within 10 days (routine)) - Pending Review Specialty Diagnoses / Procedures Referred By Antonio akers Referred To Contact Pharmacist / Pharmacy Diagnoses PAT (iron deficiency anemia) Natasha Aldrich CRNP [address] [place] [address] Referral ID Status Reason Start Date Expiration Date Visits Requested Visits Authorized [id number] Pending Review Specialty Services Required 07/22/2023 99 99 Question Answer Referral Priority Within 10 days (routine) Where should this appointment be scheduled? Juan Carlos Referring Provider Role: Specialist Specialty: production engine repairer Reason for Referral: Anemia Comments Pharmacist Medication Therapy Management: Iron deficiency anemia Javon Park RN Reason for Visit * Reason Onset Date Comments Blood Management Program 07/22/2023 Encounter Details Date Type Department Care Team (Late st Contact Info) Description 07/22/2023 Telephone Patient Blood Management, [place] [address] [place] [address] Natasha Aldrich CRNP [address] [place] [address] Blood Management Program Allergies Active Allergy Reactions Criticality Noted Date Comments Sulfadiazine 04/24/2022 Other reaction(s): hives, itching Sulfamethoxazole-Trimethopri m Rash 08/24/2018 Other reaction(s): hives, itching documented as of this encounter (statuses as of 07/29/2023) Medications Medication Sig Dispensed Refills Start Date [...] as of this encounter (statuses as of 07/29/2023) Active Problems Problem Noted Date Diagnosed Date Iron deficiency anemia 07/27/2023 Antepartum anemia complicating 024 Overview: 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 Early GTT WNL Eczema 01/10/2020 Eosinophilic esophagitis 01/10/2020 Migraine headache 01/10/2020 Estimated Date of Delivery Comme nts Yes 10/06/2023 Based on last me nstrual period of 12/30/2022 (Exact Date) documented as of this encounter (statuses as of 07/29/2023) Immunizations Name Administration Dates Next Due Seasonal [...] money to get more. Never true 02/16/2023 [place] Depression Scale Answer Date Recorded [place] Depression Scale Total 6 02/23/2023 The thought [...] encounter Miscellaneous Notes * Telephone Encounter - Eden Alanis CMA - 07/29/2023 2:58 PM EST Krystal called scheduled her Venofer for08/02 at 230pm * Telephone Encounter - Jeanine Fernando OSA - 07/29/2023 8:18 AM EST Called and Left message to schedule appts * Telephone Encounter - Nichol Mckeon RN - 07/29/2023 8:06 AM EST [place] is signed. Scheduling: please call patient to schedule 2 hour appt "venofer 06/30" (Natasha Aldrich). Thanks! Patient will need venofer once a week x3 doses. * Telephone Encounter - Nichol Mckeon RN - 07/27/2023 4:07 PM EST [place] plan built and routed for signature. Prior auth not needed for venofer. Can send to scheduling once [place] plan is signed. * Telephone Encounter - Javon Park RN - 07/22/2023 2:42 PM EST Recommend IV iron per OB MTM guidelines. Patient agreeable, prefers infusion at [facility]. documented in this encounter Plan of Treatment Upcoming Encounters Date Type Department Care Team (Late st Contact Info) Description 08/02/2023 2:30 PM EST Hem/Onc Treatment Hematology/Oncology Treatment, [place] [address] [place] [address] 08/03/2023 8:00 AM EST Laboratory Laboratory, [facility] [address] [facility] [place] [phone] [facility] [address] [facility] [address] 08/03/2023 10:00 AM EST Pharmacy Pharmacy, [place] [address] [place] [address] Clinic, [place] [address] [place] [address] 08/18/2023 3:00 PM EST Office Visit Gynecology/Obstetrics [facility] [place] [address] Natasha Aldrich CRNP [address] [place] [address] 09/01/2023 9:30 AM EST Office Visit Gynecology/Obstetrics Ana M Parker [address] [place] [address] Natasha Aldrich CRNP [address] [place] [address] 09/15/2023 3:15 PM EDT Office Visit Gynecology/Obstetrics Ana M Parker [address] [place] [address] Natasha Aldrich CRNP [address] [place] [address] Scheduled Referrals Name Type Priority Associated Diagnoses [...]
--- OUTSIDE RECORDS SUMMARY | 2023-10-01 14:16 | External Medical Summary | Summary of Care ---
Author Name Unknown Organization [facility] Address [address] [place] [address] Phone [phone] Care Team Providers Care Charge Authorizer Name Role Phone Unavailable Primary Care Provider Unavailabl e Reason for Visit * Reason Onset Date Comments Anemia Follow-Up 07/27/2023 * Evaluate & Treat - Unlimited Visits (Within 10 days (routine)) - Pending Review Specialty Diagnoses / Procedures Referred By Contac t Referred To Contact Pharmacist / Pharmacy Diagnoses PAT (iron deficiency anemia) Natasha Aldrich CRNP [address] [place] [address] Referral ID Status Reason Start Date Expiration Date Visits Requested Visits Authorized [id number] Pending Review Specialty Services Required 07/22/2023 99 99 Encounter Details Date Type Department Care Team (Late st Contact Info) Description 07/27/2023 4:[address] [facility] Pharmacy Pharmacy, [place] [address] [place], [place] [id number] Clinic, Anemia [address] [place], [place] [id number] Iron deficiency anemia, unspecified iron deficiency anemia type* Allergies Active Allergy Reactions Criticality Noted Date Comments Sulfadiazine 04/24/2022 Other reaction(s): hives, itching Sulfamethoxazole-Trimethopri m Rash 08/24/2018 Other reaction(s): hives, itching documented as of this encounter (statuses as of 07/27/2023) Medications Medication Sig Dispensed Refills Start Date [...] as of this encounter (statuses as of 07/27/2023) Active Problems Problem Noted Date Diagnosed Date Iron deficiency anemia 07/27/2023 Antepartum anemia complicating 024 Overview: 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 Early GTT WNL Eczema 01/10/2020 Eosinophilic esophagitis 01/10/2020 Migraine headache 01/10/2020 Estimated Date of Delivery Comme nts Yes 10/06/2023 Based on last me nstrual period of 12/30/2022 (Exact Date) documented as of this encounter (statuses as of 07/27/2023) Immunizations Name Administration Dates Next Due Seasonal [...] money to get more. Never true 02/16/2023 [place] Depression Scale Answer Date Recorded [place] Depression Scale Total 6 02/23/2023 The thought [...] as of this encounter Progress Notes * Eddie Medina, [facility] - 07/27/2023 1:50 PM EST Patient Phone Numbers Patient referred by YOUSIF Vasquez for evaluation of anemia by the Anemia Clinic. Called patient to introduce role/clinic and to review labs from 07/21. Hgb: 9.9 g/dL TSAT: 7 % Ferritin: 7 ng/mL B12: 274 pg/mL FA: >20.0 ng/mL GA: 29w6d Estimated Date of Delivery: 10/06/23 Hgb is below target range for the third trimester. Iron studies below target range. B12 level belowtarget range. FA level within target range. Per chart review, patient is taking B12 1000mcg daily and appears to be tolerating it well. Patient is having a hard time staying awake in the evening and is very tired. Patient qualifies for IV iron repletion. Plan: Venofer 300 mg IV weekly x 3 doses at SP. Orders placed and routed to appropriate parties. Patient agreeable to intervention. Follow-up labs to be scheduled ~4-6 weeks after iron repletion completed if appropriate prior to delivery. Anemia Clinic will continue to follow. Thank you for allowing us to participate in the care of thispatient. Thanks, Eddie Rah, [facility] Clinical [facility]ist [facility] (P: [phone]) 07/27/2023 1:50 PM documented in this encounter Miscellaneous Notes * Addendum Note - Eddie Medina RPh - 07/27/2023 3:47 PM ESTAddended by: EDDIE MEDINA on: 07/27/2023 03:47 PM Modules accepted: Orders documented in this encounter Plan of Treatment Upcoming Encounters Date Type Department Care Team (Late st Contact Info) Description 08/03/2023 8:00 AM EST [facility] [address] [place] [address] [facility] [address] [place] [address] 08/03/2023 10:00 AM EST Pharmacy Pharmacy, [place] [address] [place] [address] Clinic, Anemia [address] [place] [address] 08/18/2023 3:00 PM EST Office Visit Gynecology/Obstetrics [facility] [address] [place] [address] Natasha Aldrich CRNP [address] [place] [address] 09/01/2023 9:30 AM EST [facility] [address] [place] [address] Natasha Aldrich CRNP [address] [place] [address] 09/15/2023 3:15 PM EDT Office Visit Gynecology/Obstetrics [facility] [address] [place] [address] Natasha Aldrich CRNP [address] [place] [address] Scheduled Referrals Name Type Priority Associated Diagnoses [...]
--- OUTSIDE RECORDS SUMMARY | 2023-10-01 14:16 | External Medical Summary | Summary of Care ---
Author Name Unknown Organization [facility] Address [address] [place] [address] Phone [phone] Care Team Providers Care Microfilm Operator Name Role Phone Unavailable Primary Care Provider Unavailabl e Reason for Visit * Reason Comments Outpatient Testing Encounter Details Date Type Department Care Team (Late st Contact Info) Description 08/03/2023 8:00 AM EST Laboratory Laboratory, [facility] [address] [facility] [address] Abnormal glucose tolerance in mother complicating Allergies Active Allergy Reactions Criticality Noted Date [...] 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 Never true 02/16/2023 [place] Depression Scale Answer Date Recorded [place] Depression Scale Total 6 02/23/2023 The thought [...] 2:30 PM EST Hem/Onc Treatment Hematology/Oncology Treatment, [place] [address] [place] [address] Ramya, Chair 7 Hem Onc Sc[facility] [address] [place] [address] 08/18/2023 3:00 PM EST Office [facility] [address] [place] [address] Natasha Aldrich CRNP [address] [place] [address] 09/01/2023 9:30 AM EST Office Visit Gynecology/Obstetrics [facility] [address] [place] [address] Natasha Aldrich CRNP [address] [place] [address] 09/15/2023 3:15 PM EDT Office Visit [facility]necology[facility] [address] [place] [address] Natasha Aldrich CRNP [address] [place] [address] Pending Results Name Type Priority Associated Diagnoses Date /Time GESTATIONAL GLUCOSE TOLERANCE, 3 HOUR Lab Routine Abnormal glucose tolerance in mother complicating 08/03/2023 8:19 AM EST 100-G GESTATIONAL GLUCOSE, 2 HOUR Lab Routine Abnormal glucose tolerance in mother complicating 08/03/2023 10:28 AM EST 100-G GESTATIONAL GLUCOSE, 3 HOUR Lab Routine Abnormal glucose tolerance in mother complicating 08/03/2023 11:24 AM EST Health Maintenance Due Date Last Done Comments [...] Not on filedocumented as of this encounter Procedures Procedure Name Priority Date/Time Associated Diagnosis Comments 100-G GESTATIONAL GLUCOSE, 1 HOUR Routine 08/03/2023 9:25 AM EST Abnormal glucose tolerance in mother complicating 100-G GESTATIONAL GLUCOSE, FASTING Routine 08/03/2023 8:19 AM EST Abnormal glucose tolerance in mother complicating documented in this encounter Results * (ABNORMAL) 100-G GESTATIONAL GLUCOSE, 1 HOUR (08/03/2023 9:25 AM EST) 100-g Gestational Glucose, 1 Hour 203(H) 70 - 179 mg/dL 08/03/2023 10:32 AM EST LABORATORY [facility] 57-10 Blood Venous blood specimen / Unknown Venipuncture / Unknown 08/03/2023 9:25 AM EST 08/03/2023 9:25 AM EST Natasha DODD LAB BLOOD ORDERABLES Performing Organization Address [facility]/ZIP Co de Phone Number LABORATORY [place] [phone] [place] [address] * 100-G GESTATIONAL GLUCOSE, FASTING (08/03/2023 8:19 AM EST) [facility] 100-g Gestational Glucose, Fasting 88 70 - 94 mg/dL 08/03/2023 9:33 AM EST LABORATORY [facility] 57-10 Blood Venous blood specimen / Unknown Venipuncture / Unknown 08/03/2023 8:19 AM EST 08/03/2023 8:19 AM EST Narrative LABORATORY [place] 57-10 - 08/03/2023 9:33 AM EST Based on ACOG guideline, gestational diabetes mellitus is diagnosed when any of the following is met: Fasting is greater than or equal to 95 mg/dL 1 hour is greater than or equal to 180 mg/dL 2 hour is greater than or equal to 155 mg/dL 3 hour is greater than or equal to 140 mg/dL Natasha DODD LAB BLOOD ORDERABLES Performing Organization Address [facility] Co de Phone Number LABORATORY [place] [phone] [place] [address] documented in this encounter Visit Diagnoses Diagnosis Abnormal glucose tolerance in mother complicating Abnormal maternal glucose tolerance, complicating , childbirth, or the puerperium, unspecified as to episode of care documented in this encounter
--- OUTSIDE RECORDS SUMMARY | 2023-10-01 14:16 | External Medical Summary | Summary of Care ---
Author Name Unknown Organization [facility] Address [address] [place] [address] Phone [phone] Care Team Providers Care Guard Sergeant Name Role Phone Unavailable Primary Care Provider Unavailabl e Reason for Referral * Evaluate & Treat - Unlimited Visits (Within 10 days (routine)) - Pending Review Specialty Diagnoses / Procedures Referred By Antonio akers Referred To Contact Pharmacist / Pharmacy Diagnoses PAT (iron deficiency anemia) Natasha Aldrich CRNP [address] [address] Referral ID Status Reason Start Date Expiration Date Visits Requested Visits Authorized [id number] Pending Review Specialty Services Required 07/22/2023 99 99 Question Answer Referral Priority Within 10 days (routine) Where should this appointment be scheduled? 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 Never true 02/16/2023 [place] Depression Scale Answer Date Recorded [place] Depression Scale Total 6 02/23/2023 The thought [...] Mckeon RN - 07/27/2023 4:07 PM EST [place] plan built and routed for signature. Prior auth not needed for venofer. Can send to scheduling once beacon plan is signed. * Telephone Encounter - Javon Park RN - 07/22/2023 2:42 PM EST Recommend IV iron per OB MTM guidelines. Patient agreeable, prefers infusion at [facility]. documented in this encounter Plan of Treatment Upcoming Encounters Date Type Department Care Team (Late st Contact Info) Description 08/03/2023 8:00 AM EST Laboratory Laboratory, [facility] [address] [place] [address] [facility] [address] [place] [address] 08/03/2023 10:00 AM EST Pharmacy Pharmacy, [place] [address] [place] [address] Clinic, Anemia [address] [place] [address] 08/18/2023 3:00 PM EST Office Visit Gynecology/Obstetrics [facility] [address] [place] [address] Natasha Aldrich CRNP [address] [place] [address] 09/01/2023 9:30 AM EST Office Visit Gynecology/Obstetrics [facility] [address] [place] [address] Natasha Aldrich CRNP [address] [place] [address] 09/15/2023 3:15 PM EDT Office Visit Gynecology/Obstetrics [place] [address] Natasha Aldrich CRNP [address] [place] [address] Scheduled Referrals Name Type Priority Associated Diagnoses [...]
--- OUTSIDE RECORDS SUMMARY | 2023-10-01 14:16 | External Medical Summary | Summary of Care ---
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 Never true 02/16/2023 [place] Depression Scale Answer Date Recorded [place] Depression Scale Total 6 02/23/2023 The thought [...] Description 08/03/2023 8:00 AM EST Laboratory Laboratory, [facility] [address] [place] [address] [facility] [address] [place] [address] 08/03/2023 10:00 AM EST Pharmacy Pharmacy, [address] [address] 08/18/2023 3:00 PM EST Office Visit Gynecology/Obstetrics [facility] [address] [place] [address] Natasha Aldrich CRNP [address] [place] [address] 09/01/2023 9:30 AM EST Office Visit Gynecology/Obstetrics [facility] [address] [place] [address] Natasha Aldrich CRNP [address] [place] [address] 09/15/2023 3:15 PM EDT [facility] [address] [place] [address] Natasha Aldrich CRNP [address] [place] [address] Health Maintenance Due Date Last Done Comments Hepatitis B (1 of 3 - 3-dose series) 1995 Depression Screening 2007 COVID-19 Vaccine (2022- season) 2023 04/24/2022, 05/02/2021, [...]
--- OUTSIDE RECORDS SUMMARY | 2023-10-01 14:16 | External Medical Summary | Summary of Care ---
Author Name Unknown Organization [facility] Address [address] [place] [address] Phone [phone] Care Team Providers Care Sports Complex Attendant Name Role Phone Unavailable Primary Care Provider Unavailabl e Reason for Visit * Reason Onset Date Comments Anemia Follow-Up 07/27/2023 * Evaluate & Treat - Unlimited Visits (Within 10 days (routine)) - Pending Review Specialty Diagnoses / Procedures Referred By Contac t Referred To Contact Pharmacist / Pharmacy Diagnoses PAT (iron deficiency anemia) Natasha Aldrich CRNP [address] [place] [address] Referral ID Status Reason Start Date Expiration Date Visits Requested Visits Authorized [id number] Pending Review Specialty Services Required 07/22/2023 99 99 Encounter Details Date Type Department Care Team (Late st Contact Info) Description 07/27/2023 4:00 PM [facility] Pharmacy Pharmacy, [place] [address] [place], [place] [id number] Clinic, Anemia [address] [place], [place] [id number] Iron deficiency anemia, unspecified iron deficiency anemia [...] 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 Never true 02/16/2023 [place] Depression Scale Answer Date Recorded [place] Depression Scale Total 6 02/23/2023 The thought [...] encounter Progress Notes * Maria Victoria Monreal, [facility] - 07/27/2023 1:50 PM EST Patient Phone Numbers Patient referred by YOUSIF Vasquez for evaluation of anemia by the Anemia Clinic. Called patient to introduce role/clinic and to review labs from 07/21. Left message on voicemail. Hgb: 9.9 g/dL TSAT: 7 % Ferritin: 7 ng/mL B12: 274 pg/mL FA: >20.0 ng/mL GA: 29w6d Estimated Date of Delivery: 10/06/23 Hgb is below target range for the third trimester. Iron studies below target range. B12 level belowtarget range. FA level within target range. Per chart review, patient is taking B12 1000mcg daily and appears to be tolerating it well. Patient qualifies for IV iron repletion. Tentative Plan: Venofer 300 mg IV weekly x 3 doses at . Orders need to be placed and routed to appropriate parties if patient agreeable to intervention. Follow-up labs to be scheduled ~4-6 weeks after iron repletion completed if appropriate prior to delivery. Anemia Clinic will continue to follow. Thank you for allowing us to participate in the care of thispatient. Thanks, Maria Victoria Monreal, [facility] Clinical Pharmacist [facility] (P: [phone]) 07/27/2023 1:50 PM documented in this encounter Plan of Treatment Upcoming Encounters Date Type Department Care Team (Late st Contact Info) Description 08/03/2023 8:00 AM EST Laboratory Laboratory, [facility] 132 [facility] [address] [facility] 132 [facility] [place] [address] 08/03/2023 4:00 PM EST Pharmacy Pharmacy, [address] [address] Clinic, [address] [address] 08/18/2023 3:00 PM EST Office Visit Gynecology/Obstetrics [facility] [address] [place] [address] Natasha Aldrich CRNP [address] [place] [address] 09/01/2023 9:30 AM EST Office Visit Gynecology/Obstetrics [facility] 132 [facility] [place] [address] Natasha Aldrich CRNP [address] [place] [address] 09/15/2023 3:15 PM EDT Office Visit Gynecology/Obstetrics [facility] [place] [address] Natasha Aldrich CRNP [address] [place] [address] Scheduled Referrals Name Type Priority Associated Diagnoses Orde r Schedule PHARMACIST MEDS THERAPY MGMT REFERRAL OP Referral Within 10 days (routine) PAT (iron deficiency anemia) Ordered: 07/22/2023 Health Maintenance Due Date Last Done Comments Hepatitis B (1 of 3 - 3-dose series) 1995 Depression Screening 2007 COVID-19 Vaccine ( - 2022- season) 2023 [...]
--- OUTSIDE RECORDS SUMMARY | 2023-10-01 14:16 | External Medical Summary | Summary of Care ---
Author Name Unknown Organization [facility] Address [address] [place] [address] Phone [phone] Care Team Providers Care Weed Cutter Name Role Phone Unavailable Primary Care Provider Unavailabl e Reason for Referral * Evaluate & Treat - Unlimited Visits (Within 10 days (routine)) - Pending Review Specialty Diagnoses / Procedures Referred By Antonio akers Referred To Contact Pharmacist / Pharmacy Diagnoses PAT (iron deficiency anemia) Natasha Aldrich CRNP [address] [place] [address] Referral ID Status Reason Start Date Expiration Date Visits Requested Visits Authorized [id number] Pending Review Specialty Services Required 07/22/2023 99 99 Question Answer Referral Priority Within 10 days (routine) Where should this appointment be scheduled? 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 Never true 02/16/2023 [place] Depression Scale Answer Date Recorded [place] Depression Scale Total 6 02/23/2023 The thought [...] Mckeon RN - 07/29/2023 8:06 AM EST [place] is signed. Scheduling: please call patient to schedule 2 hour appt "venofer 06/30" (Natasha Aldrich). Thanks! Patient will need venofer once a week x3 doses. * Telephone Encounter - Nichol Mckeon RN - 07/27/2023 4:07 PM EST [place] plan built and routed for signature. Prior auth not needed for venofer. Can send to scheduling once beacon plan is signed. * Telephone Encounter - Javon Park RN - 07/22/2023 2:42 PM EST Recommend IV iron per OB MTM guidelines. Patient agreeable, prefers infusion at [facility]. documented in this encounter Plan of Treatment Upcoming Encounters Date Type Department Care Team (Late st Contact Info) Description 08/03/2023 8:00 AM EST [facility] [address] [place] [address] [facility] [address] [place] [address] 08/03/2023 10:00 AM EST Pharmacy Pharmacy, [id number] [address] 08/18/2023 3:00 PM EST Office Visit Gynecology/Obstetrics [facility] [address] [place] [address] Natasha Aldrich CRNP [address] [place] [address] 09/01/2023 9:30 AM EST Office Visit Gynecology/Obstetrics [facility] [address] [place] [address] Natasha Aldrich CRNP [address] [place] [address] 09/15/2023 3:15 PM EDT Office Visit Gynecology/Obstetrics [facility] [address] [place] [address] Natasha Aldrich CRNP [address] [place] [address] Scheduled Referrals Name Type Priority Associated Diagnoses Orde r Schedule PHARMACIST MEDS THERAPY MGMT REFERRAL OP Referral Within 10 days (routine) PAT (iron deficiency anemia) Ordered: 07/22/2023 Health Maintenance Due Date Last Done Comments Hepatitis B (1 of 3 - 3-dose series) 1995 Depression Screening 2007 COVID-19 Vaccine ( - season) 2023 04/24/2022, [...]
--- OUTSIDE RECORDS SUMMARY | 2023-10-01 14:16 | External Medical Summary | Summary of Care ---
Author Name Unknown Organization [facility] Address [address] [place] [address] Phone [phone] Care Team Providers Care Team Leader/Research Psychologist Name Role Phone Unavailable Primary Care Provider Unavailabl e Reason for Visit * Reason Comments Infusion Venofer 06/30 Encounter Details Date Type Department Care Team (Latest Contact Info) Description 08/02/2023 2:30 PM EST Hem/Onc Treatment Hematology/Oncology Treatment, [place] [address] [place], [place] [id number] Antepartum anemia complicating *; Iron deficiency anemia, unspecified iron deficiency anemia type Allergies Active Allergy Reactions Criticality Noted Date Comments Sulfadiazine 04/24/2022 Other reaction(s): hives, itching Sulfamethoxazole-Trimethopri m Rash 08/24/2018 Other reaction(s): hives, itching documented as of this encounter (statuses as of 08/02/2023) Medications Medication Sig Dispensed Refills Start Date [...] as of this encounter (statuses as of 08/02/2023) Active Problems Problem Noted Date Diagnosed Date Iron deficiency anemia 07/27/2023 Antepartum anemia complicating 024 Overview: 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 Early GTT WNL Eczema 01/10/2020 Eosinophilic esophagitis 01/10/2020 Migraine headache 01/10/2020 Estimated Date of Delivery Comme nts Yes 10/06/2023 Based on last me nstrual period of 12/30/2022 (Exact Date) documented as of this encounter (statuses as of 08/02/2023) Immunizations Name Administration Dates Next Due Seasonal [...] money to get more. Never true 02/16/2023 [facility] Depression Scale Answer Date Recorded [facility] Depression Scale Total 6 02/23/2023 The thought [...] 1440: Chair 8. Pt arrived for Venofer 1/3 infusion. PIV in RFA. Pt tolerated well. VSS. No complaints at this time. 1622: Pt tolerated Venofer infusion well. PIV removed intact. Pt to return in one week. Discharged in stable condition. documented in this encounter Plan of Treatment Upcoming Encounters Date Type Department Care Team (Late st Contact Info) Description 08/03/2023 8:00 AM EST [facility] [phone] [facility] [address] 08/03/2023 10:00 AM EST Pharmacy Pharmacy, [place] [address] [place] [address] Clinic, [facility] [address] [place] [address] 08/18/2023 3:00 PM EST Office Visit Gynecology/Obstetrics [facility] 132 [facility] [place], [place] [address] Natasha Aldrich CRNP [address] [place], [place] [address] 09/01/2023 9:30 AM EST Office Visit Gynecology/Obstetrics [facility] [address] [place] [address] Natasha Aldrich CRNP [address] [place] [address] 09/15/2023 3:15 PM EDT Office Visit Gynecology/Obstetrics Ana M [facility] [address] [place] [address] Natasha Aldrich CRNP [address] [place] [address] Health Maintenance Due Date Last Done Comments [...] ONCE PRN Other, Hypersensitivity Reaction, Starting on Wed08/02/23 at 1435, Until Wed08/03/23 at 1434, For 24 hours EPINEPHrine 1 MG/ML inj 0.3 mg 0.3 mg, Intramuscular, ONCE PRN Other, Hypersensitivity Reaction or Anaphylaxis, Starting on Wed08/02/23 at 1435, Until Wed08/03/23 at 1434, For 24 hours hEParin 100 UNIT/ML Lock Flush inj 500 Units 500 Units (5 mL), IV Lock, PRN Other, IV Flush, Starting on Wed08/02/23 at 1435, Until Wed08/03/23 at 1434, For 24 hours, Do not flush if lock, PICC, or central line not in place; IV infusing or unable to flush. Hydrocortisone Sod Suc (PF) (Solu-Cortef) inj 100 mg 100 mg, IV Push, ONCE PRN Other, Hypersensitivity Reaction, Starting on Wed08/02/23 at 1435, Until Wed08/03/23 at 1434, For 24 hours NSS infusion 500 mL, Intravenous, at 50 mL/hr, CONTINUOUS, Starting on Wed08/02/23 at 1545, Until Wed08/03/23 at 0144 Start Infusion 08/02/2023 2:49 PM EST 500 mL 50 mL/hr oxygen GAS Inhalation, OXYGEN, First dose on Wed08/02/23 at 1600, Until Discontinued, Device/Managed by: Low [...] Push, PRN Other, IV Flush, Starting on Wed08/02/23 at 1435, Until Wed08/03/23 at 1434, For 24 hours, Do not flush if [...] 2:49 PM EST 300 mg 166.67 mL/hr documented in this encounter
--- OUTSIDE RECORDS SUMMARY | 2023-10-01 14:16 | External Medical Summary | Continuity of Care Document ---
Author Name Unknown Organization [address] Address [address] [place] [address] [place], [place] [id number] Care Team Providers Care Rand Cementer Name Role Phone Livia Maldonado Primary Care Physician [phone] Encounter [facility] [id number] Date(s): 07/29/23 - 07/29/[address] [place] [address] [place] [address] [phone] Encounter Diagnosis Body mass index [BMI] 34.0-34.9, adult(Discharge Diagnosis) - 07/29/23 Screening for hyperlipidemia(Discharge Diagnosis) - 07/29/23 Well adult exam(Discharge Diagnosis) - 07/28/23 Discharge Disposition: Home or Self Care Attending Physician: YOUSIF Maldonado Shari A Referring Physician: YOUSIF Maldonado Shari A Allergies, Adverse Reactions, Alerts Substance Reaction Severity [...] Daily, Disp# 90 cap, Refills: 3, [id number] Start Date: 07/17/21 Status: Ordered omeprazole 10 mg oral delayed release capsule Start: 01/04/23 10:38:00 EDT, See Instructions, Disp# 90 cap, Refills: 0, TAKE 1 CAPSULE BY MOUTH EVERY DAY, Pharmacy: [id number] Start Date: 01/04/23 Status: Ordered Multivitamins with [...] tab, PRN: as needed for nausea/vomiting, [facility]acy: [id number] Start Date: 07/27/22 Stop Date: 08/01/22 Status: Ordered Mental Status 07/29/23 Mandatory Health Literacy Documentation Yes Health Literacy Communication Barriers N ever Primary Language Austrian Problem List Condition Confirmation Course Effective Dates Status Health St atus Informant Chronic constipation Confirmed Active Eczema Confirmed Active Eosinophilic esophagitis Confirmed Active Migraine Confirmed Active Diagnosis Diagnosis Type Effective Dates Health Status Clinical Service Informant Well adult exam Discharge Diagnosis 07/28/23 Non-Specified Body mass index [BMI] 34.0-34.9, adult Discharge Diagnosis 07/29/23 Non-Specified Screening for hyperlipidemia Discharge Diagnosis 07/29/23 Non-Specified Procedures Procedure Date Related Diagnosis Body Site Status Shave biopsy and cauterization of skin 05/31/23 [...] The lung basis are clear as visualized. Vital Signs Most recent to oldest [Reference Range]: 1 Height 162 cm (07/29/23 3:26 PM) Patient Weight 90.5 kg (07/29/23 3:26 PM) Body Mass Index 34.48 kg/m2 (07/29/23 3:26 PM) Temperature [36.5-37.9 DegC] 36.7 DegC (07/29/23 3:26 PM) Heart Rate 112 bpm (07/29/23 3:26 PM) Respiratory Rate 16 br/min (07/29/23 3:26 PM) Blood Pressure 134/62mmHg (07/29/23 3:26 PM) Social History Social History Type Response Smoking Status Never smoked cigaret linus Sex Female Patient Care team information Care Team Personnel Name: YOUSIF Maldonado Shari A Position: Nurse Pract - Family Med Member Role: Primary Care Provider Address: Address: [address] [place] [address] [place] Care Team Related Persons Name: KIRSTIE POTTER
--- OUTSIDE RECORDS SUMMARY | 2023-10-01 14:16 | External Medical Summary | Summary of Care ---
Author Name Unknown Organization [facility] Address [address] [facility] [address] Phone [phone] Care Team Providers Care Dirt Bike Racer Name Role Phone Unavailable Primary Care Provider Unavailabl e Encounter Details Date Type Department Care Team (Late st Contact Info) Description 07/24/2023 Orders Only PATIENT [place] DO NOT DELETE THIS DEPT USED BY [place] [address] Allergies Active Allergy Reactions Criticality Noted Date Comments Sulfadiazine 04/24/2022 Other reaction(s): hives, itching Sulfamethoxazole-Trimethopri m Rash 08/24/2018 Other reaction(s): hives, itching documented as of this encounter (statuses as of 07/24/2023) Medications Medication Sig Dispensed Refills Start Date [...] as of this encounter (statuses as of 07/24/2023) Active Problems Problem Noted Date Diagnosed Date Antepartum anemia complicating 024 Overview: Iron infusions 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 Early GTT WNL Eczema 01/10/2020 Eosinophilic esophagitis 01/10/2020 Migraine headache 01/10/2020 Estimated Date of Delivery Comme nts Yes 10/06/2023 Based on last me nstrual period of 12/30/2022 (Exact Date) documented as of this encounter (statuses as of 07/24/2023) Immunizations Name Administration Dates Next Due Seasonal [...] money to get more. Never true 02/16/2023 [place] Depression Scale Answer Date Recorded [place] Depression Scale Total 6 02/23/2023 The [...] Description 07/27/2023 4:00 PM EST Pharmacy Pharmacy, [place] [address] [place] [address] Clinic, [facility] [address] [place] [address] 08/18/2023 3:00 PM EST Office Visit Gynecology/Obstetrics [facility] [address] [place] [address] Natasha Aldrich CRNP [address] [place] [address] 09/01/2023 9:30 AM EST Office Visit Gynecology/Obstetrics [facility] [address] [place] [address] Natasha Aldrich CRNP [address] [place] [address] 09/15/2023 3:15 PM EDT Office Visit Gynecology/Obstetrics [facility] [address] [place] [address] Natasha Aldrich CRNP [address] [place] [address] Health Maintenance Due Date Last Done Comments [...]
--- OUTSIDE RECORDS SUMMARY | 2023-10-01 14:16 | External Medical Summary | Summary of Care ---
Author Name Unknown Organization [facility] Address [address] [place] [address] Phone [phone] Care Team Providers Care Commercial Print Salesman Name Role Phone Unavailable Primary Care Provider Unavailabl e Reason for Visit * Reason Comments Blood Management Program Encounter Details Date Type Department Care Team (Late st Contact Info) Description 07/22/2023 Documentation Patient Blood Management, [place] [address] [place] [address] Javon Park RN Allergies Active Allergy Reactions Criticality Noted Date Comments Sulfadiazine 04/24/2022 Other reaction(s): hives, itching Sulfamethoxazole-Trimethopri m Rash 08/24/2018 Other reaction(s): hives, itching documented as of this encounter (statuses as of 07/22/2023) Medications Medication Sig Dispensed Refills Start Date [...] for Nausea. 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 Early GTT WNL Eczema 01/10/2020 Eosinophilic esophagitis 01/10/2020 Migraine headache 01/10/2020 Estimated Date of Delivery Comme nts Yes 10/06/2023 Based on last me nstrual period of 12/30/2022 (Exact Date) documented as of this encounter (statuses as of 07/22/2023) Immunizations Name Administration Dates Next Due Seasonal [...] money to get more. Never true 02/16/2023 [place] Depression Scale Answer Date Recorded [place] Depression Scale Total 6 02/23/2023 The thought [...] as of this encounter Progress Notes * Javon Park RN - 07/22/2023 2:14 PM EST REFERRAL - Patient Blood Management Name: Krystal Kruger REQUESTING SERVICE: [facility] OB REASON FOR REFERRAL: new evaluation outpatient, anemia in [place]: 10/06/23 Anemia Evaluation: Latest Reference Range & Units 07/21/23 15:59 HGB 12.0 - 15.3 g/dL 9.9 (L) HCT 36.0 - 45.2 % 32.2 (L) Iron 33 - 151 ug/dL 38 Iron Binding Capacity 250 - 425 ug/dL 545 (H) Transferrin Saturation Percent 15 - 55 % 7 (L) Ferritin 13 - 150 ng/mL 7 (L) Vitamin B12 232 - 1,245 pg/mL 274 Folic Acid >4.5 ng/mL >20.0 Immature Reticuloctye Fraction 2.5 - 20.6 % 36.1 (H) Reticulocyte Hemoglobin 29.7 - 37.4 pg 25.9 (L) (L): Data is abnormally low (H): Data is abnormally high Current Patient Medications: Medications that may impair hemostasis: none Medications that may impair iron absorption: omeprazole Patient Refused Blood Transfusion? (e.g. Yazidi): no Possible Contributing Factors: iron deficiency and vitamin B12 deficiency Treatment Recommendations: B12 1000mcg PO daily IV iron per OB MTM guidelines. 07/22 - Spoke with Krystal, agreeable to IV iron at [facility]. All questions answered. Will submitOB MTM. Thank you for allowing Blood Management to participate in the care of this patient. documented in this encounter Plan of Treatment Upcoming Encounters Date Type Department Care Team (Late st Contact Info) Description 08/18/2023 3:00 PM EST Office Visit Gynecology/Obstetrics [facility] [address] [place] [address] Natasha Aldrich CRNP [address] [place] [address] 09/01/2023 9:30 AM EST Office Visit Gynecology/Obstetrics [facility] [address] [place] [address] Natasha Aldrich CRNP [address] [place] [address] 09/15/2023 3:15 PM EDT Office Visit Gynecology/Obstetrics [facility] [address] [place] [address] Natasha Aldrich CRNP [address] [place] [address] Health Maintenance Due Date Last Done Comments [...]
--- OUTSIDE RECORDS SUMMARY | 2023-10-01 14:16 | External Medical Summary | Summary of Care ---
Author Name Unknown Organization [facility] Address [address] [place] [address] Phone [phone] Care Team Providers Care Calender Tender Name Role Phone Unavailable Primary Care Provider Unavailabl e Reason for Referral * Evaluate & Treat - Unlimited Visits (Within 10 days (routine)) - Pending Review Specialty Diagnoses / Procedures Referred By Antonio akers Referred To Contact Pharmacist / Pharmacy Diagnoses PAT (iron deficiency anemia) Natasha Aldrich CRNP [address] [place] [address] Referral ID Status Reason Start Date Expiration Date Visits Requested Visits Authorized [id number] Pending Review Specialty Services Required 07/22/2023 99 99 Question Answer Referral Priority Within 10 days (routine) Where should this appointment be scheduled? 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 Never true 02/16/2023 [place] Depression Scale Answer Date Recorded [place] Depression Scale Total 6 02/23/2023 The thought [...] encounter Miscellaneous Notes * Telephone Encounter - Jeanine Fernando OSA - 07/29/2023 8:18 AM EST Called and Left message to schedule appts * Telephone Encounter - Nichol Mckeon RN - 07/29/2023 8:06 AM EST [place] is signed. Scheduling: please call patient to schedule 2 hour appt "venofer 06/30" (Natasha Aldrich). Thanks! Patient will need venofer once a week x3 doses. * Telephone Encounter - Nichol Mckeon RN - 07/27/2023 4:07 PM EST [place] plan built and routed for signature. Prior auth not needed for venofer. Can send to scheduling once [place] plan is signed. * Telephone Encounter - Javon Park RN - 07/22/2023 2:42 PM EST Recommend IV iron per OB MTM guidelines. Patient agreeable, prefers infusion at [facility]. documented in this encounter Plan of Treatment Upcoming Encounters Date Type Department Care Team (Late st Contact Info) Description 08/03/2023 8:00 AM EST Laboratory Laboratory, [facility] 132 [facility] [place] [address] [facility] [address] [facility] [place] [address] 08/03/2023 10:00 AM EST Pharmacy Pharmacy, [place] [address] [place] [address] Clinic, [facility] [address] [place] [address] 08/18/2023 3:00 PM EST Office Visit Gynecology/Obstetrics [facility] [address] [facility] [place] [address] Natasha Aldrich CRNP [address] [place] [address] 09/01/2023 9:30 AM EST Office Visit Gynecology/Obstetrics [facility] [address] [place] [address] Natasha Aldrich CRNP [address] [place] [address] 09/15/2023 3:15 PM EDT Office Visit Gynecology/Obstetrics [facility] [address] [place] [address] aNtasha Aldrich CRNP [address] [place] [address] Scheduled Referrals Name Type Priority Associated Diagnoses [...]
--- OUTSIDE RECORDS SUMMARY | 2023-10-01 14:16 | External Medical Summary ---
Author Name Unknown Address Unknown Organization [facility] [address] [place] [address] Laboratory Report Ordering Provider Test Date Status ARNIE PRIEST 08/03/2023 10:28:04 Final Observation Date Value Abnormality Reference (Units ) Status Glucose, 2-hr post glucose challenge 08/03/2023 10:28:04 164 Above high normal 70-154 (mg/dL) Final Performing Location [facility] [place] [address] [place] [address]
--- OUTSIDE RECORDS SUMMARY | 2023-10-01 14:17 | External Medical Summary | Summary of Care ---
Author Name Unknown Organization [facility] Address [address] [facility] [place] [address] Phone [phone] Care Team Providers Care Dining Car Hop Name Role Phone Unavailable Primary Care Provider Unavailabl e Encounter Details Date Type Department Care Team (Late st Contact Info) Description 06/24/2023 Telephone Gynecology/Obstetrics [facility] [address] [place] [address] Natasha Aldrich CRNP [address] [place] [address] Allergies Active Allergy Reactions Criticality Noted Date Comments Sulfadiazine 04/24/2022 Other reaction(s): hives, itching Sulfamethoxazole-Trimethopri m Rash 08/24/2018 Other reaction(s): hives, itching documented as of this encounter (statuses as of 06/24/2023) Medications Medication Sig Dispensed Refills Start Date [...] as of this encounter (statuses as of 06/24/2023) Active Problems Problem Noted Date Diagnosed Date 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 Early GTT WNL Eczema 01/10/2020 Eosinophilic esophagitis 01/10/2020 Migraine headache 01/10/2020 Estimated Date of Delivery Comme nts Yes 10/06/2023 Based on last me nstrual period of 12/30/2022 (Exact Date) documented as of this encounter (statuses as of 06/24/2023) Immunizations Name Administration Dates Next Due Seasonal Influenza, PF, 6 M & above, IM , (FluLaval or Fluzone) 03/29/2023 documented as of this encounter Social History [...] to get more. Never true 02/16/2023 [place] Depression Scale Answer Date Recorded [place] Depression Scale Total 6 02/23/2023 The thought [...] encounter Miscellaneous Notes * Telephone Encounter - Annette Camarena LPN - 06/24/2023 10:45 AM EST Pt called in with right rib pain under her armpit. Pt has had a cough for 3 weeks now and she is having 7/10 pain where she can barley move. Pt thinks she pulled something and pt also is having rightsided calf pain. Denies any swelling or redness. Pt denies any VB, lOF or stomach/pelvic pain. Babymoving well. I instructed pt is she is having pain to the point she can barely move she needs to goto er to be evaluated and I told pt to make sure she lets them know about her calf pain. Pt verbalized understanding. documented in this encounter Plan of Treatment Upcoming Encounters Date Type Department Care Team (Late st Contact Info) Description 07/21/2023 2:50 PM EST [facility] [address] [place] [address] [facility] [address] [place] [address] 07/21/2023 3:15 PM EST [facility] [address] [place] [address] Natsaha Aldrich CRNP [address] [place] [address] 08/18/2023 3:00 PM EST [facility] [address] [place] [address] Natasha Aldrich CRNP [address] [place] [address] 09/01/2023 9:30 AM EST [facility] [address] [place] [address] Natasha Aldrich CRNP [address] [place] [address] 09/15/2023 3:15 PM EDT Office Visit Gynecology/Obstetrics [facility] [address] [place] [address] Natasha Aldrich CRNP [address] [place] [address] Health Maintenance Due Date Last Done Comments Hepatitis B (1 of 3 - 3-dose series) 1995 Depression Screening 2007 DTaP,Tdap,and Td Vaccines (1 - Tdap) 2014 COVID-19 Vaccine (2022- season) 2023 04/24/2022, 05/02/2021, 08/30/2020 Pap Smear 04/24/2025 04/24/2022, 07/30, 08/24/2018 GARDASIL-HPV IMMUNIZATION SERIES Completed 06/23/2012, 02/22/2012, 12/21/2011 [...]
--- OUTSIDE RECORDS SUMMARY | 2023-10-01 14:17 | External Medical Summary | Summary of Care ---
Author Name Unknown Organization [facility] Address [address] [facility] [place] [address] Phone [phone] Care Team Providers Care Forming Department Supervisor Name Role Phone Unavailable Primary Care Provider Unavailabl e Reason for Visit * Reason Comments Outpatient Testing Encounter Details Date Type Department Care Team (Late st Contact Info) Description 07/21/2023 2:50 PM EST Laboratory Laboratory, [facility] [address] [place] [address] [facility] [address] [place] [address] Normal in second trimester; Rh negative status during in second trimester Allergies Active Allergy Reactions Criticality Noted Date Comments Sulfadiazine 04/24/2022 Other reaction(s): hives, itching Sulfamethoxazole-Trimethopri m Rash 08/24/2018 Other reaction(s): hives, itching documented as of this encounter (statuses as of 07/21/2023) Medications Medication Sig Dispensed Refills Start Date [...] for Nausea. 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 Early GTT WNL Eczema 01/10/2020 Eosinophilic esophagitis 01/10/2020 Migraine headache 01/10/2020 Estimated Date of Delivery Comme nts Yes 10/06/2023 Based on last me nstrual period of 12/30/2022 (Exact Date) documented as of this encounter (statuses as of 07/21/2023) Immunizations Name Administration Dates Next Due Seasonal [...] money to get more. Never true 02/16/2023 [place] Depression Scale Answer Date Recorded [place] Depression Scale Total 6 02/23/2023 The thought [...] 08/18/2023 3:00 PM EST Office Visit Gynecology/Obstetrics [facility] [address] [place] [address] Natasha Aldrich CRNP [address] [place] [address] 09/01/2023 9:30 AM EST Office Visit Gynecology/Obstetrics [facility] [address] [place] [address] Natasha Aldrich CRNP [address] [place] [address] 09/15/2023 3:15 PM EDT Office Visit Gynecology/Obstetrics [facility] [address] [place] [address] Natasha Aldrich CRNP [address] [place] [address] Pending Results Name Type Priority Associated Diagnoses Date /Time CBC WITH WBC DIFFERENTIAL AND ANEMIA REFLEX WORKUP Lab Routine Normal in second trimester 07/21/2023 3:59 PM EST SYPHILIS ANTIBODY SCREEN WITH REFLEX TO RPR Lab Routine Normal in second trimester 07/21/2023 3:59 PM EST 50-G GESTATIONAL GLUCOSE, 1 HOUR Lab Routine Normal in second trimester 07/21/2023 3:59 PM EST TYPE AND SCREEN Lab Routine Normal in second trimester Rh negative status during in second trimester 07/21/2023 3:59 PM EST ANEMIA CBC Lab Routine Normal in second trimester 07/21/2023 3:59 PM EST DIFFERENTIAL, AUTOMATED Lab Routine Normal in second trimester 07/21/2023 3:59 PM EST ANEMIA REFLEX CHEMISTRY HOLD Lab Routine Normal in second trimester 07/21/2023 3:59 PM EST SYPHILIS ANTIBODY SCREEN Lab Routine Normal in second trimester 07/21/2023 3:59 PM EST Health Maintenance Due Date Last Done [...] this encounter Visit Diagnoses Diagnosis Normal in second trimester Rh negative status during in second trimester documented in this encounter
--- OUTSIDE RECORDS SUMMARY | 2023-10-01 14:17 | External Medical Summary ---
Author Name Unknown Address Unknown Organization [id number][place] [place] [address] [place] [address] Laboratory Report Ordering Provider Test Date Status ARNIE PRIEST 07/21/2023 15:59:36 Final Observation Date Value Abnormality Reference (Units ) Status Iron 07/21/2023 15:59:36 38 33-151 (ug/dL) Final Iron-binding capacity 07/21/2023 15:59:36 545 Above high normal 250-425 (ug/dL) Final Transferrin Sat % 07/21/2023 15:59:36 7 Below low normal 15-55 (%) Final Performing Location [facility] [place] [address] [place] [address]
--- OUTSIDE RECORDS SUMMARY | 2023-10-01 14:17 | External Medical Summary ---
Author Name Unknown Address Unknown Organization [id number][place] [place] [address] [facility] [address] Laboratory Report Ordering Provider Test Date Status LUIS PRIESTELVIRA 07/21/2023 15:59:36 Final Observation Date Value Abnormality Reference (Units ) Status Retic, % (auto) 07/21/2023 15:59:36 2.55 Above high normal 0.80-1.90 (%) Final Reticulocytes, Absolute 07/21/2023 15:59:36 90.5 31.3-100.1 (K/uL) Final Reticulocyte fraction, immature 07/21/2023 15:59:36 36.1 Above high normal 2.5-20.6 (%) Final Reticulocyte HGB 07/21/2023 15:59:36 25.9 Below low normal 29.7-37.4 (pg) Final Performing Location [facility] [place] [address] [facility] [address]
--- OUTSIDE RECORDS SUMMARY | 2023-10-01 14:17 | External Medical Summary | Summary of Care ---
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 Name Role Phone Unavailable Primary Care Provider Unavailabl e Reason for Visit * Reason Comments Return Visit Encounter Details Date Type Department Care Team (Late st Contact Info) Description 07/21/2023 3:15 PM EST Office Visit Gynecology/Obstetric s [facility] [address] [place] [address] Natasha Aldrich CRNP [address] [place] [id number] Normal in third trimester*; Obesity in , antepartum; Rh negative status during in third trimester; INFORMATION; Need for prophylactic vaccination with combined pfqljaayhw-mkfdppe-lq rtussis (DTP) vaccine Allergies Active Allergy Reactions Criticality Noted Date [...] third trimester 300 mcg IM ONCE 07/21/2023 07/21/2023 Ended documented as of this encounter (statuses as of 07/21/2023) Active Problems Problem Noted Date Diagnosed Date INFORMATION 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 Never true 02/16/2023 [place] Depression Scale Answer Date Recorded [place] Depression Scale Total 6 02/23/2023 The thought [...] Sign Reading Time Taken Comments Blood Pressure 118/64 07/21/2023 3:00 PM EST Pulse - - Temperature - - Respiratory Rate - - Oxygen Saturation - - Inhaled Oxygen Concentration - - Weight 93.4 kg (206 lb) 07/21/2023 3:00 PM EST Height 157.5 cm (5' 2") 07/21/2023 3:00 PM EST Body Mass Index 37.68 07/21/2023 3:00 PM EST documented in this encounter Progress Notes * Natasha Aldrich CRNP - 07/21/2023 3:32 PM EST 29w Feeling well overall. Baby is active, discussed FKC. No bleeding or LOF. Glucola, TDAP, Rhogam today. YOUSIF Chavez * Annette Camarena LPN - 07/21/2023 3:00 PM EST 29w0d Needs rhogam and would like tdap documented in this encounter Nursing Notes * Dee Lange RN - 07/21/2023 4:16 PM EST Patient here for TDAP and RHOGAM injection. Patient doing well no complaints. Injection given IM asordered. Patient tolerated well. Patient to follow up as directed. Patient instructed to call if any complications. Patient verbalized understanding of instructions given and her follow up appt for 2weeks Injection site: Left Deltoid R gluteal Medication Source: Dispensed stock medication Dee Lange RN documented in this encounter Plan of Treatment Upcoming Encounters Date Type Department Care Team (Late st Contact Info) Description 08/18/2023 3:00 PM EST Office Visit Gynecology/Obstetrics [facility] [address] [place] [address] Natasha Aldrich CRNP [address] [place] [address] 09/01/2023 9:30 AM EST Office Visit Gynecology/Obstetrics [facility] [address] [place] [address] Natasha Aldrich CRNP [address] [place] [address] 09/15/2023 3:15 PM EDT Office Visit [facility] [address] [place] [address] Natasha Aldrich CRNP [address] [place] [address] Health Maintenance Due Date Last Done Comments [...] negative status during in third trimester INFORMATION Need for prophylactic vaccination with combined ybeptflwas-qpecuum-mkdqlsezm (DTP) vaccine documented in this encounter Administered Medications Inactive Administered Medications - up to 3 most recent administrations Medication Order MAR Action Action Date Dose Rate Site Rho D Immune Globulin (Rhophylac) inj 300 mcg 300 mcg, Intramuscular, ONCE, On Wed07/21/23 at 1545, For 1 dose, Do not administer until type and screen has been collected! 1 MCG = 5 INTERNATIONAL UNITS Given 07/21/2023 4:11 PM EST 300 mcg Dorsogluteal Right documented in this encounter
--- OUTSIDE RECORDS SUMMARY | 2023-10-01 14:17 | External Medical Summary ---
Author Name Unknown Address Unknown Organization K01:[facility] [place] [address] [facility] [address] Laboratory Report Ordering Provider Test Date Status ARNIE PRIEST 07/21/2023 15:59:36 Final Observation Date Value Abnormality Reference (Units ) Status Treponema pallidum Ab [Presence] in Serum by Immunoassay 07/21/2023 15:59:36 Nonreactive Nonreactive Final No serologic evidence of syp hilis. No additional testing clinicially indicated at this time. Consider repeat testing in 2-4 weeks if acute or primary syphilis is suspected. Performing Location [facility] [place] - [address] [facility] [address]
--- OUTSIDE RECORDS SUMMARY | 2023-10-01 14:17 | External Medical Summary ---
Author Name Unknown Address Unknown Organization [id number]:LABORATORY [place] [facility] - [address] [place] [address] Laboratory Report Ordering Provider Test Date Status ARNIE PRIEST 07/21/2023 15:59:36 Final Observation Date Value Abnormality Reference (Units ) Status SYNC LEUKOCYTES IN BLOOD BY AUTOMATED COUNT 07/21/2023 15:59:36 12.03 Above high normal 4.00-10.80 (K/uL) Final Segs 07/21/2023 15:59:36 68.8 40.0-75.0 (%) Final Lymphs % 07/21/2023 15:59:36 21.5 18.0-42.0 (%) Final Monos 07/21/2023 15:59:36 8.7 1.0-11.0 (%) Final Eosinophils 07/21/2023 15:59:36 0.8 0.0-6.0 (%) Final Basos 07/21/2023 15:59:36 0.2 0.0-2.0 (%) Final Absolute Segs 07/21/2023 15:59:36 8.27 Above high normal 1.80-7.70 (K/uL) Final Lymphs, absolute 07/21/2023 15:59:36 2.59 1.00-4.80 (K/ul) Final Monos, Abs 07/21/2023 15:59:36 1.05 0.00-1.10 (K/uL) Final Eos, Abs 07/21/2023 15:59:36 0.10 0.00-0.70 (K/uL) Final Basos, Abs 07/21/2023 15:59:36 0.02 0.00-0.20 (K/uL) Final Performing Location LABORATORY [place] [facility] 0 - [address] [place] [address]
--- OUTSIDE RECORDS SUMMARY | 2023-10-01 14:17 | External Medical Summary ---
Author Name Unknown Address Unknown Organization [id number]:[facility] [place] [address] [place] [address] Laboratory Report Ordering Provider Test Date Status ARNIE PRIEST 07/21/2023 15:59:36 Final Observation Date Value Abnormality Reference (Units ) Status TSH 07/21/2023 15:59:36 1.55 0.27-4.20 (uIU/mL) Final Performing Location [facility] [address] [facility] [address]
--- OUTSIDE RECORDS SUMMARY | 2023-10-01 14:17 | External Medical Summary ---
Author Name Unknown Address Unknown Organization [id number]:[facility] [place] [address] [address] Laboratory Report Ordering Provider Test Date Status ARNIE PRIEST 07/21/2023 15:59:36 Final Observation Date Value Abnormality Reference (Units ) Status Vitamin B12 07/21/2023 15:59:36 640 033-6212 (pg/mL) Final Performing Location LABORATORY [facility] - [address] [place] [address]
--- OUTSIDE RECORDS SUMMARY | 2023-10-01 14:17 | External Medical Summary ---
Author Name Unknown Address Unknown Organization [id number] [address] [place] [address] Laboratory Report Ordering Provider Test Date Status ARNIE PRIEST 07/21/2023 15:59:36 Final Observation Date Value Abnormality Reference (Units ) Status WBC, Total 07/21/2023 15:59:36 12.03 Above high normal 4 .00-10.80 (K/uL) Final RBC 07/21/2023 15:59:36 3.53 3.85-5.15 (M/uL) Final Hemoglobin 07/21/2023 15:59:36 9.9 Below low normal 12 .0-15.3 (g/dL) Final Anemia reflex testing trigge rs on a HGB < 12.0 for Females and HGB < 13.0 for Males in accordance with the WHO Anemia Guidelines
Anemia reflex testing triggers on a HGB < 12.0 for Females and HGB < 13.0 for Males in accordance with the WHO Anemia Guidelines HCT 07/21/2023 15:59:36 32.2 Below low normal 36. 0-45.2 (%) Final MCV 07/21/2023 15:59:36 91.2 81.5-97.5 (fL) Final MCH 07/21/2023 15:59:36 28.0 27.0-34.0 (pg) Final MCHC 07/21/2023 15:59:36 30.7 32.0-36.0 (g/dL) Final RDW 07/21/2023 15:59:36 13.2 11.5-15.5 (%) Final Platelets 07/21/2023 15:59:36 225 140-400 (K /uL) Final MPV 07/21/2023 15:59:36 10.6 6.6-11.1 ( fL) Final Performing Location [facility] 0 - [address] [place] [address]
--- OUTSIDE RECORDS SUMMARY | 2023-10-01 14:17 | External Medical Summary ---
Author Name Unknown Address Unknown Organization K0G:[facility] [place] [facility] - [address] [place] [address] Laboratory Report Ordering Provider Test Date Status ARNIE PRIEST 07/21/2023 15:59:36 Final Observation Date Value Abnormality Reference (Units ) Status Nucleated erythrocytes/100 leukocytes [Ratio] in Blood by Automated count 07/21/2023 15:59:36 Final Performing Location [facility] [place] [facility] 0 - [address] [place] [address]
--- OUTSIDE RECORDS SUMMARY | 2023-10-01 14:17 | External Medical Summary ---
Author Name Unknown Address Unknown Organization K01:LAB[facility]ATORY [facility] - [address] [place] [address] Laboratory Report Ordering Provider Test Date Status ARNIE PRIEST 07/21/2023 15:59:36 Final Observation Date Value Abnormality Reference (Units ) Status Ferritin 07/21/2023 15:59:36 7 Below low normal 13- 150 (ng/mL) Final Performing Location LABORATORY [facility] - [address] [place] [address]
--- OUTSIDE RECORDS SUMMARY | 2023-10-01 14:17 | External Medical Summary ---
Author Name Unknown Address Unknown Organization [facility] [address] [place] [address] Laboratory Report Ordering Provider Test Date Status CEMARNIE 07/21/2023 15:59:36 Final Observation Date Value Abnormality Reference (Units ) Status Glucose [Moles/volume] in Serum or Plasma --1 hour post 50 g glucose PO 07/21/2023 15:59:36 138 Above high normal 70-129 (mg/dL) Final Performing Location [facility] [place] [facility] 0 - [address] [place] [address]
[2023-10-01] MEDS: LACTATED RINGER'S 1,000 ML IV PRN (17:18)
--- NOTE | 2023-10-01 17:52 | Obstetrical Progress Note ---
Date of Service October 01, 2023 Assessment & Plan Admission and Anticipated Discharge Date Admission Date: October 01, 2023 Subjective Patient is reevaluated. She has been feeling contractions since noon. The pain is between 4-5 out of 10. Patient does not need pain medications. No leakage of fluid or vaginal bleeding. She reports good movements. She has been on the monitor since 510 and she is having contractions every 1 to 2 minutes and IV fluid boluses started. I checked her cervix and it is low was 1 cm, 50%, posterior, head at -2. I left detailed of Cervidil out if bolus did not help further contractions we will remove the Cervidil. Continue to monitor. All questions were answered. Results & Data Vital Signs (Past 12 Hours) Vital Signs Temp Pulse Resp BP 10/01/23 15:41 36.8 C 82 20 148/86 H 10/01/23 11:20 36.7 C 16 10/01/23 11:20 100 H 10/01/23 11:20 144/85 H 10/01/23 11:20 103 H 143/95 H 10/01/23 07:52 36.9 C 18 10/01/23 07:51 100 H 134/86
[2023-10-01] MEDS: BUTORPHANOL TARTRATE 2 MG/ML VIAL IV PRN (21:22)
[2023-10-01] MEDS: fentANYL 2 MCG/ML BUPIVacaine 0.125%-NSS 100ML BAG ONE (22:46)
[2023-10-01] MEDS: BUPIVACAINE 0.25% PF 30 ML VIAL ONE (22:47)
[2023-10-01] MEDS: LIDOCAINE 2%/EPINEPHRINE 1:200,000 20 ML PF ONE (22:47)
[2023-10-01] MEDS: ePHEDrine sulfate 50 MG/ML AMP ONE (22:50)
[2023-10-01] MEDS: fentaNYL citrate PF 100 MCG/2 ML VIAL ONE (22:50)
[2023-10-01] MEDS: SODIUM CHLORIDE 0.9% PF INJ 10 ML VIAL ONE (22:50)
--- NOTE | 2023-10-01 23:00 | Anesthesiology Consultation ---
Date of Service October 01, 2023 Assessment & Plan Chart Review Chart Review: Acceptable Risk for Labor Epidural Consults Requested none History Height/Weight Height: 5 ft 2 in Weight: 93.894 kg Allergies Allergy/AdvReac Type Severity Reaction Status Date / Time Sulfa (Sulfonamide Allergy Severe Hives Verified 10/01/23 08:11 Antibiotics) Medications Home Medications Medication Instructions Recorded Confirmed Last Taken aspirin 81 mg tablet 81 mg PO QAM 06/24/23 10/01/23 09/30/23 docusate sodium 100 mg capsule 100 mg PO HS 06/24/23 10/01/23 09/30/23 (Colace) omeprazole 20 mg capsule,delayed 20 mg PO QAM 06/24/23 10/01/23 10/01/23 release promethazine 25 mg tablet 25 mg PO HS nausea and vomiting 06/24/23 10/01/23 09/30/23 pyridoxine (vitamin B6) 100 mg 100 mg PO DAILY 06/24/23 10/01/23 10/01/23 tablet (Vitamin B-6) Active Medications Generic Name Dose Route Start Last Admin Trade Name Freq PRN Reason Stop Dose Admin Butorphanol Tartrate 1 mg 10/01/23 10:17 10/01/23 21:22 Butorphanol Tartrate 2 Mg/Ml Vial IV 10/31/23 10:16 1 mg Q2HWA PRN Administration Pain Lactated Ringer's 1,000 mls @ 150 mls/hr 10/01/23 08:49 10/01/23 22:53 Lr IV 10/03/23 08:48 150 mls/hr .Q6H40M PRN Infusion L&D Protocol Protocol Past Medical History Medical History (Updated 10/01/23 @ 10:11 by Miller Richardson MD) History of migraine headaches Iron deficiency anemia had 3 iron infusions Gestational diabetes mellitus on oral medications( metformin 500mg) No pertinent past medical history Past Family History Family History Grandmother (Maternal) Diabetes mellitus type 2, controlled Past Surgical History Surgical History H/O wisdom tooth extraction Social History Smoking Status: Never smoker Hx Alcohol Use: No Hx Substance Use: No substance use type: does not use Physical Exam Vital Signs Last Vital Signs Temp 36.7 C 10/01/23 21:07 Pulse 109 H 10/01/23 22:56 Resp 20 10/01/23 21:07 BP 130/71 10/01/23 22:53 Pulse Ox 96 10/01/23 22:56 Testing Laboratory Results 10/01/23 09:11 10/01/23 10:26 Blood Type O Negative 10/01/23 09:11 Antibody Screen NEGATIVE 10/01/23 09:11 10/01/23 11:48 POC Glucose 87
[2023-10-01] MEDS ORDERED: NALBUPHINE HCL 5 MG in SYRINGE 0 ML IV PRN (23:02)
[2023-10-01] MEDS ORDERED: NALOXONE HCL 0.4 MG/1 ML VIAL/CARP IV PRN (23:02)
[2023-10-01] MEDS ORDERED: ePHEDrine sulfate 50 MG/ML AMP IV PRN (23:02)
[2023-10-01] MEDS ORDERED: fentaNYL citrate PF 100 MCG/2 ML VIAL EPI PRN (23:02)
[2023-10-01] MEDS ORDERED: LIDOCAINE 2% MPF LOCAL 5 ML VIAL EPI PRN (23:02)
[2023-10-01] MEDS ORDERED: ROPIVACAINE 0.5% PF 5 MG/ML 20 ML VIAL EPI PRN (23:02)
[2023-10-01] MEDS ORDERED: diphenhydrAMINE 50 MG/ML VIAL IV PRN (23:02)
[2023-10-01] MEDS ORDERED: SODIUM CHLORIDE 0.9% PF INJ 10 ML VIAL EPI PRN (23:02)
[2023-10-01] MEDS ORDERED: BUPIVACAINE 0.25% PF 30 ML VIAL EPI PRN (23:02)
[2023-10-01] MEDS: LIDOCAINE 2%/EPINEPHRINE 1:200,000 20 ML PF EPI STA (23:15)
[2023-10-01] MEDS: SODIUM CHLORIDE 0.9% PF INJ 10 ML VIAL EPI STA (23:15)
[2023-10-01] MEDS: fentaNYL citrate PF 100 MCG/2 ML VIAL EPI STA (23:15)
[2023-10-01] MEDS: BUPIVACAINE 0.25% PF 30 ML VIAL EPI STA (23:15)
--- NOTE | 2023-10-01 23:30 | Obstetrical Progress Note ---
Date of Service October 01, 2023 Assessment & Plan Admission and Anticipated Discharge Date Admission Date: October 01, 2023 Subjective Patient SROMed around 9 pm and then started to have very painful contractions. Cervidil was removed and then cervix was 1-2 cm/ 50%/-2, Stadol was given for pain. She then asked for epidural since the IV med did not help. She has epidural now and comfortable, VSS Afebrile, FHR categ I, VE; 2 cm/ 60%/ -2, clear fluid, Contractions spaced out, Plan to start Oxytocin per protocol, Continue to monitor closely, All questions were asnwered. Results & Data Vital Signs (Past 12 Hours) Vital Signs Temp Pulse Resp BP Pulse Ox 10/01/23 23:26 99 H 97 10/01/23 23:23 95 H 140/68 10/01/23 23:21 99 H 98 10/01/23 23:16 104 H 98 10/01/23 23:11 101 H 98 10/01/23 23:09 104 H 136/67 10/01/23 23:06 107 H 97 10/01/23 23:03 108 H 94 10/01/23 23:01 119 H 97 10/01/23 22:56 109 H 96 10/01/23 22:53 93 H 130/71 10/01/23 22:51 102 H 99 10/01/23 22:50 96 H 130/60 10/01/23 22:47 94 H 136/61 10/01/23 22:46 93 H 100 10/01/23 22:43 103 H 136/80 10/01/23 22:41 94 H 99 10/01/23 22:37 112 H 92 10/01/23 22:36 112 H 142/85 H 94 10/01/23 22:31 123 H 100 10/01/23 21:07 20 10/01/23 21:07 36.7 C 20 10/01/23 19:24 100 H 125/73 10/01/23 19:01 18 10/01/23 19:01 36.7 C 18 10/01/23 15:41 36.8 C 82 20 148/86 H
[2023-10-01] MEDS: OXYTOCIN 30 UNITS/NSS 30 UNITS/500 ML BAG IV PRN (23:49)
[2023-10-02] MEDS: NALOXONE HCL 1 MG in SODIUM CHLORIDE 0.9% 1,000 ML IV PRN (01:50)
[2023-10-02] MEDS: fentANYL 2 MCG/ML BUPIVacaine 0.125%-NSS 100ML BAG EPI PRN (05:09)
[2023-10-02] MEDS ORDERED: OXYTOCIN 30 UNITS/NSS 30 UNITS/500 ML BAG IV PRN (14:22)
[2023-10-02] MEDS ORDERED: HYDROCORTISONE ACETATE 25 MG SUPP PR PRN (14:22)
[2023-10-02] MEDS ORDERED: ACETAMINOPHEN 325 MG TAB PO PRN (14:22)
[2023-10-02] MEDS ORDERED: bisacodyL 10 MG SUPP PR PRN (14:22)
[2023-10-02] MEDS: OXYTOCIN 30 UNITS/NSS 30 UNITS/500 ML BAG IV PRN (14:26)
[2023-10-02] MEDS: miSOPROStoL 200 MCG TAB ONE (14:27)
--- NOTE | 2023-10-02 14:27 | Delivery Summary ---
Vaginal Delivery Summary Date of Service October 02, 2023 Vaginal Delivery Summary DELIVERY NOTE Patient delivered a live female in left occiput anterior presentation there was no nuchal cord. was delivered and placed on mother's abdomen. Delayed cord clamping was performed. Cord blood is obtained Cord gasses are not obtained Meconium is absent Placenta is spontaneously delivered. Placenta appears grossly normal and has 3 vessel cord Inspection of the perineum showed a first degree midline laceration. Laceration is hemostatic and therefore no suturing is required. Blood loss is 300 cc per Infants weight and scores are in the pediatric record Mother and baby are stable in in the recovery
[2023-10-02] MEDS: DIPHTHER/TETAN/PERTUS Vaccine (Tdap, Adol/Adult) 0.5mL IM ONE (14:28)
[2023-10-02] MEDS: METHYLERGONOVINE MALEATE 0.2 MG/ML AMP ONE (14:28)
[2023-10-02] MEDS: METHYLERGONOVINE MALEATE 0.2 MG/ML AMP IM ONE (14:29)
[2023-10-02] MEDS: miSOPROStoL 200 MCG TAB PR ONE (14:29)
[2023-10-02] MEDS: ONDANSETRON INJ 2 MG/ML 2 ML VIAL IV PRN (14:57)
--- NOTE | 2023-10-02 16:23 | Anesthesia Procedure Note ---
Date of Service October 02, 2023 Anesthesia Post Epidural Note Vital Signs Vital Signs: Temp Pulse Resp BP Pulse Ox 37.2 C 106 H 18 130/75 94 10/02/23 13:00 10/02/23 16:21 10/02/23 13:30 10/02/23 16:21 10/02/23 14:20 Pain Intensity Abdomen: Pain Intensity: 2 Notes Mental Status: alert / awake / arousable and participated in evaluation Nausea / Vomiting: adequately controlled Pain: adequately controlled Airway Patency, RR, SpO2: stable & adequate BP & HR: stable & adequate Hydration State: stable & adequate Neuraxial Anesthesia: was administered and sensory block resolved Anesthetic Complications: no major complications apparent and Pt Satisfied with anesthetic care Epidural: Removed without complications and With tip intact
[2023-10-02] MEDS: IBUPROFEN 600 MG TAB PO PRN (16:31)
[2023-10-02] MEDS: METHYLERGONOVINE MALEATE 0.2 MG TAB PO SCH (18:30)
[2023-10-02] MEDS: DOCUSATE SODIUM 100 MG CAP PO SCH (20:48)
[2023-10-03 08:03] LABS: Hematocrit (blood only) 36.3 % (37.0-47.0); Hemoglobin 11.8 g/dl (12.0-16.0); Mean Corpuscular Hemoglobin 28.3 pg (25.0-34.0); Mean Corpuscular Hgb Conc 32.5 g/dL (32.0-36.0); Mean Corpuscular Volume 87.1 fL (80.0-100.0); Platelet Count 154 K/uL (130-400); RDW Coefficient of Variation 17.8 % (11.5-14.5); RDW Standard Deviation 57.1 fL (36.4-46.3); Red Blood Count 4.17 M/uL (4.20-5.40); White Blood Count 19.31 K/ul (4.8-10.8)
[2023-10-03] MEDS: PRENATAL VITAMIN 1 TAB PO SCH (08:22)
--- NOTE | 2023-10-03 11:54 | Obstetrical Progress Note ---
Date of Service October 03, 2023 Assessment & Plan (1) Normal course: Plan PPD #1 pt doing well d/c home tomorrow Subjective Ambulation: ambulating normally Voiding: no voiding problems Passing Gas:: Yes Diet Tolerance:: regular diet Lochia:: Small Feeding Type:: breast feeding Review of Systems All systems reviewed & are unremarkable except as noted in HPI & below Physical Exam Constitutional WD/WN, vitals as above well developed and well nourished Eyes PERRL, conjunctivae normal, anicteric sclerae Neck trachea midline, no thyromegaly Respiratory normal respiratory effort, lungs clear to auscultation Auscultation: no crackles, no rales and no wheezes Cardiovascular RRR, no murmur, no edema Gastrointestinal (Abdomen) normal bowel sounds, soft, nontender, no hepatosplenomegaly Uterus is below umbilicus Musculoskeletal no cyanosis or clubbing, extremities motor strength 5/5 Skin no rashes, warm and dry Neurologic patellar DTR's 2+ bilat, sensation intact Psychiatric A+Ox3, euthymic affect Genitourinary normal external appearance Results & Data Vital Signs (Past 12 Hours) Vital Signs Temp Pulse Pulse Resp BP BP Pulse Ox 10/03/23 11:24 36.4 C L 95 H 18 128/83 97 10/03/23 09:45 36.6 C 93 H 18 129/87 98 10/03/23 08:10 10/03/23 04:00 36.5 C 84 16 111/71 O2 Del Method 10/03/23 11:24 10/03/23 09:45 Room Air 10/03/23 08:10 Room Air 10/03/23 04:00 Room Air
[2023-10-03] MEDS: bisacodyL 5 MG TABEC PO SCH (20:16)
[2023-10-04 06:33] LABS: Hematocrit (blood only) 35.5 % (37.0-47.0); Hemoglobin 11.2 g/dl (12.0-16.0)
--- NOTE | 2023-10-04 07:09 | Obstetrical Progress Note ---
Date of Service October 04, 2023 Assessment & Plan (1) Normal course: PPD #2 pt doing well d/c home with instructions Results & Data Vital Signs (Past 12 Hours) Vital Signs Temp Pulse Resp BP Pulse Ox O2 Del Method 10/03/23 23:20 36.6 C 79 20 122/80 97 Room Air 10/03/23 20:15 135/85
[2023-10-04] MEDS: BENZOCAINE 20% SPRY 85 APPLN/85 GM CAN EXT PRN (10:56)
== END 2023-10-04 13:00 | disposition home health service (06) | DRG 807 ==
LOC: 4S1 07:30 → 4E2 10-02 18:40

== ENCOUNTER 2023-10-29 08:10 | Observation (INO) ==
--- NOTE | 2023-10-27 14:53 | Anesthesiology Consultation ---
Date of Service October 27, 2023 Assessment & Plan (1) Encounter for pre-operative examination: - Infectious disease screening: Per assessment on 10/27/23: No known infectious disease contacts or current infectious disease symptoms. No noted recent Covid positive test result. - Vaginal delivery 10/02/23 > retained products of conception on 10/27/23 trans- vaginal pelvis ultrasound Chart Review Chart Review: Acceptable Risk for Surgery and Patient NOT seen in Pre Admission Testing History Surgery Operation Date: 10/29/23 09:45 Proposed Procedures p Examination Under Anesthesia, Dilatation and Curettage with Ultrasound Guidance - Miller Richardson MD Height/Weight Height: 5 ft 3 in Weight: 83.915 kg Allergies Allergy/AdvReac Type Severity Reaction Status Date / Time Sulfa (Sulfonamide Allergy Severe Hives Verified 10/27/23 14:03 Antibiotics) Medications Home Medications Medication Instructions Recorded Confirmed Last Taken docusate sodium 100 mg capsule 100 mg PO BID #60 caps 10/04/23 10/27/23 Unknown cyanocobalamin (vitamin B-12) 1,000 mcg PO QAM 10/27/23 10/27/23 Unknown 1,000 mcg tablet (Vitamin B-12) guar gum 1 tbsp PO TID 10/27/23 10/27/23 Unknown omeprazole 10 mg capsule,delayed 10 mg PO QAM 10/27/23 10/27/23 Unknown release Past Medical History Medical History Eosinophilic esophagitis History of COVID-19 12/2022: mild symptoms, resolved History of migraine headaches IBS (irritable bowel syndrome) Iron deficiency anemia Hx during , had 3 iron infusions Patient is a currently breast-feeding mother Past Family History Family History Grandmother (Maternal) Diabetes mellitus type 2, controlled Other No family history of adverse response to anesthesia Past Surgical History Surgical History H/O wisdom tooth extraction History of biopsy Mole (Back)- biopsy/excision History of esophagogastroduodenoscopy (EGD) Vaginal delivery 10/02/23 Social History Smoking Status: Never smoker Do You Dip or Chew Tobacco: No Hx Alcohol Use: No Hx Substance Use: No substance use type: does not use Lab Results Anesthesia Preop Results Results Anesthesia Widget: WBC 19.31 K/ul (4.8-10.8) H 10/03/23 Hgb 11.2 g/dl (12.0-16.0) L 10/04/23 Hct 35.5 % (37.0-47.0) L 10/04/23 Plt 154 K/uL (130-400) 10/03/23 Na 135 mmol/L (136-145) L 10/01/23 K 3.8 mmol/L (3.5-5.1) 10/01/23 Cl 104 mmol/L (98-107) 10/01/23 CO2 24 mmol/L (21-32) 10/01/23 BUN 11 mg/dl (6-23) 10/01/23 Creat 0.54 mg/dl (0.6-1.2) L 10/01/23 Glucose Level 108 mg/dl (70-99(Fasting)) H 10/01/23 POC Glucose 95 mg/dl (70-99) 10/01/23 Blood Type O Negative 10/03/23 Antibody Screen NEGATIVE 10/01/23 Testing Electrocardiogram Date: 02/10/23 NSR at 98bpm. NS TWA. Chest X-Ray Date: 06/24/23 FINDINGS: Lung volumes are normal. Lungs are clear. There is no pneumothorax or pleural effusion. Cardiac size is normal. Mediastinal contours are normal. There is no evidence for pulmonary edema. IMPRESSION: No acute cardiopulmonary findings. Other Testing Ultrasound pelvis trans-vaginal Date: 10/27/23 IMPRESSION: Retained products of conception.
[2023-10-29] MEDS: LR 15ML/HR IV SCH (08:54)
[2023-10-29] MEDS: LACTATED RINGER'S 1,000 ML IV SCH ×2 (08:56→14:22)
[2023-10-29] MEDS: SCOPOLAMINE 1 MG/72 HR TDSY PATCH TD ONE ×2 (09:00→14:03)
[2023-10-29] MEDS: DOXYCYCLINE HYCLATE 100 MG CAP PO SCH (09:00)
[2023-10-29] MEDS ORDERED: PROMETHAZINE HCL 6.25 MG in SODIUM CHLORIDE 0.9% 50 ML IV PRN (09:04)
[2023-10-29] MEDS ORDERED: ONDANSETRON INJ 2 MG/ML 2 ML VIAL IV PRN ×2 (09:04→12:14)
[2023-10-29] MEDS ORDERED: ATROPINE SULFATE 0.1 MG/ML 10ML SYR IV PRN (09:04)
[2023-10-29] MEDS ORDERED: ePHEDrine sulfate 50 MG/ML AMP IV PRN (09:04)
[2023-10-29] MEDS ORDERED: ACETAMINOPHEN 1000 MG/100 ML IV IV ONE (09:08)
[2023-10-29] MEDS ORDERED: ONDANSETRON INJ 2 MG/ML 2 ML VIAL ONE (09:15)
[2023-10-29] MEDS ORDERED: DEXAMETHASONE SOD INJ 4 MG/ML VIAL ONE (09:15)
[2023-10-29] MEDS ORDERED: PROPOFOL IV EMULSION 10 MG/ML 20 ML VIAL IV ONE (09:15)
[2023-10-29] MEDS ORDERED: MIDAZOLAM HCL 1 MG/ML 2ML VIAL ONE (09:15)
[2023-10-29] MEDS ORDERED: LIDOCAINE 2% 2 ML VIAL/AMP(20MG/ML) INFIL ONE (09:15)
[2023-10-29] MEDS ORDERED: fentaNYL citrate PF 100 MCG/2 ML VIAL ONE ×2 (09:15→11:33)
[2023-10-29] MEDS ORDERED: OXYTOCIN 10 UNITS/ML VIAL ONE (09:22)
[2023-10-29] MEDS ORDERED: METHYLERGONOVINE MALEATE 0.2 MG/ML AMP ONE (09:22)
[2023-10-29 09:41] LABS: Basophils # (auto) 0.03 K/uL (0.00-0.20); Basophils % (auto) 0.4 %; Eosinophils # (auto) 0.07 K/uL (0.00-0.50); Hematocrit (blood only) 42.9 % (37.0-47.0); Hemoglobin 13.6 g/dl (12.0-16.0); Immature Granulocytes # (auto) 0.02 K/uL (0.01-0.20); Immature Granulocytes % (auto) 0.3 %; Lymphocytes # (auto) 2.81 K/uL (1.20-3.40); Lymphocytes % (auto) 41.5 %; Mean Corpuscular Hemoglobin 27.7 pg (25.0-34.0); Mean Corpuscular Hgb Conc 31.7 g/dL (32.0-36.0); Mean Corpuscular Volume 87.4 fL (80.0-100.0); Mean Platelet Volume 10.8 fL (9.4-12.4); Monocytes # (auto) 0.45 K/uL (0.11-0.59); Monocytes % (auto) 6.6 %; Neutrophils # (auto) 3.39 K/uL (1.40-6.50); Neutrophils % (auto) 50.2 %; Platelet Count 211 K/uL (130-400); RDW Coefficient of Variation 15.2 % (11.5-14.5); RDW Standard Deviation 48.7 fL (36.4-46.3); Red Blood Count 4.91 M/uL (4.20-5.40); White Blood Count 6.77 K/ul (4.8-10.8)
--- NOTE | 2023-10-29 09:46 | History & Physical Bridge Note ---
Date of Service October 29, 2023 History & Physical Bridge Note I have examined the patient, reviewed the History & Physical and in the interval since the performance of the History & Physical I have noted the following changes of clinical significance: no changes noted
[2023-10-29] MEDS: ceFAZolin 2000MG 2,000 MG/15 ML SYR IV ONE (10:02)
[2023-10-29] MEDS ORDERED: ceFAZolin 330 MG/ML 1 GM VIAL ONE (10:02)
[2023-10-29] MEDS ORDERED: KETOROLAC 30 MG/ML VIAL ONE (10:05)
[2023-10-29] MEDS ORDERED: ePHEDrine sulfate 50 MG/5 ML SYR ONE (10:21)
[2023-10-29] MEDS ORDERED: SODIUM CHLORIDE 0.9% 250 ML IV PRN (10:46)
[2023-10-29] MEDS ORDERED: ALBUMIN HUMAN 5% 12.5 GM/250 ML VIAL IV ONE (11:42)
[2023-10-29] MEDS: miSOPROStoL 200 MCG TAB ONE (11:53)
[2023-10-29] MEDS: FLOSEAL HEMOSTATIC MATRIX 10ML TOP ONE (11:53)
[2023-10-29] MEDS ORDERED: SUGAMMADEX SODIUM 200 MG/2 ML VIAL IV ONE (11:55)
[2023-10-29] MEDS ORDERED: ALUMINUM/MAGNESIUM/SIMETH (MAALOX MAX) 30 ML UDC PO PRN (12:14)
[2023-10-29] MEDS ORDERED: MAGNESIUM HYDROXIDE SUSP 30 ML UDC PO PRN (12:14)
[2023-10-29] MEDS ORDERED: MoRPHine SULFATE 4 MG/ML 1 ML CARP\\VIAL IV PRN (12:14)
--- NOTE | 2023-10-29 12:21 | Operative Report ---
Post Operative Report Pre & Post Diagnosis Operation Date: 10/29/23 09:45 <No data on this case meets the specified criteria> I identified the patient and participated in the time-out.: Yes Procedure Operation Date: 10/29/23 09:45 <No data on this case meets the specified criteria> EUA, Suction D&C under US and Laparoscopic guidance, Diagnostic Laparoscopy Surgeon Miller Richardson MD Teaching Assistant Dr Rivera Estimated Blood Loss 500 Findings Consistent with Post-Op Diagnosis EUA: Anteverted, Anteflexed uterus, 8-10 week size uterus, nonpalpable adnexa intraoperative findings: uterus sounded to to be 9 cm, laparoscopy revealed boggy uterus about 8 to 10 weeks size, normal fallopian tubes and ovaries, there was a small perforation on posterior isthmic area of uterus, it was hemostatic with no active bleeding, normal Bowel, and upper abdomen with normal kidney and gallbladder Fluids 2000 mL of lactated ringer Specimens endometrial curettings Drains straight cath 400 mL of clear urine Anesthesia Type General Complications uterine perforation at posterior isthmic area of uterus, with no active bleeding Disposition Accompanied Patient To Recovery: Yes Indications patient is a 28-year-old , who is status post vaginal delivery on September, recent episode of heavy vaginal bleeding on October 26, ultrasound revealed thickened endometrium suspicious for retained products of conception, patient opted for surgical management Description of Procedure patient was taken to the OR, received general [place] without difficulty. She was placed in dorsal rectum position and prepared and draped in the usual sterile fashion. Timeout is done she was given 2 g of cefazolin. Bladder was drained with straight catheter and 300 mL of clear urine was obtained. Exam of anesthesia was done with the above findings. Manage instructions were placed in the patient's vagina cervix was found to be high in the vagina, longer instruments were brought to the room to grasp the cervix. anterior lip of the cervix was grasped with single-tooth tenaculum and the cervix was found to be closed. Cervical os was dilated with Hegar dilators until #9. One of them was used to sound the uterus to be 9 cm Under ultrasound guidance. Uterus was found to be anteverted and anteflexed and attention was made to angle the dilators to be able to go into the uterine cavity. Then #8 suction device was introduced through the cervix into the cavity and suction some amount of blood with no tissue. Ultrasound was watching and reminding that retained products of conception was in the anterior wall was not reached with the tip of suction. Then we dilated cervix again without difficulty. Then a small sharp curette was used to create the cavity. I was able to curette posterior wall and found this but not able to reach anterior wall due to being anteflexed. Ultrasound revealed retained products still in the uterus. Then hysteroscope was introduced to the room introduced through the cervix but there was active bleeding unable to see the uterine cavity. Ultraso und is repeated and we noticed free fluid in the pelvis, in the cul-de-sac as well as anterior uterus. Hysteroscope was ended. the deficit was 350 mL. Then patient started to have bright red blood coming from cervix. Uterus was massaged and she was given Methergine IM and Cytotec rectally. Findings were suspicious for uterine perforation. Then decision was made to proceed with diagnostic laparoscopy. Dr. Rivera was called to the room for assistance. All the necessary instruments were brought to the room by nursing team. Anesthesia was notified about the findings. They intubated the patient. Patient abdomen was prepped and draped in usual sterile fashion. Performed laparoscopic portion of the surgery. A 5 mm incision was made in the periumbilical area. 5 mm trocar was introduced with scope in it, with direct visualization. CO2 gas was used for and pneumoperitoneum. Intra-abdominal placement was confirmed with the scope. Then 2 more trocars were placed and the right and lower left quadrants under direct laparoscopic visualization. They were 5 mm trocars. There was no blood around the bowel loops neither in the pelvis. patient was placed in position, uterus was brought to the pelvis, there was small amount of blood in the anterior and posterior cul-de-sac. Ovaries fallopian tubes anterior uterine wall fundus posterior uterine wall were intact and normal. There was a small puncture on the posterior isthmic area ( between lower uterus and cervix ) on the right side of the uterus. It was hemostatic with no active bleeding. Then with laparoscopic guidance cervix was dilated again, 10 mm suction tip was used to suction the uterine cavity. Small sharp rate was used to create the uterine lining until current sensation was felt. Those were down under laparoscopic guidance to avoid uterine perforation. Pelvis was irrigated with warm normal saline and suctioned. There was no blood in the pelvis. The puncture site on the isthmus uterus was covered with Floseal hemostatic powder to prevent oozing in the future. Laparoscope was ended. all instruments were removed from patient's abdomen, gas was emptied. Skin incisions were closed with 4-0 Monocryl. And all instruments were removed from patient's vagina, cervix was hemostatic. bleeding from uterus has stopped. Patient was cleaned dried and taken from rectum position. She was extubated cortes ccessfully. She tolerated procedure well. Sponge, lap and instrument count was correct x 2. No complications happened other than expendable. I was and Dr. Rivera was present during whole procedure. My activity assistant was needed for retraction, hemostasis, laparoscopic guidance of the surgery I attest to the content of the Intraoperative Record and any orders documented therein. Any exceptions are noted below.
[2023-10-29] MEDS: fentaNYL citrate PF 100 MCG/2 ML VIAL IV PRN (12:51)
[2023-10-29 12:52] LABS: Hematocrit (blood only) 35.8 % (37.0-47.0); Hemoglobin 11.1 g/dl (12.0-16.0)
--- NOTE | 2023-10-29 13:20 | Anesthesiology Progress Note ---
Date of Service October 29, 2023 Anesthesia Post Procedure Vital Signs Vital Signs: Temp Pulse Resp BP Pulse Ox O2 Del Method O2 Flow Rate 10/29/23 13:15 36.9 C 92 H 14 112/79 98 Oxymask 3 10/29/23 13:05 92 H 16 120/91 98 Oxymask 3 10/29/23 12:55 88 14 105/73 100 Oxymask 3 10/29/23 12:45 70 16 115/61 99 Oxymask 3 10/29/23 12:35 85 14 129/69 100 Oxymask 4 10/29/23 12:25 86 12 119/68 100 Oxymask 6 10/29/23 12:15 36.0 C L 83 20 98/62 L 98 Oxymask 6 10/29/23 08:43 37.1 C 83 20 135/89 97 Room Air Pain Intensity Abdomen: Pain Intensity: 4 Transfer of Care Handoff Completed per policy Notes Mental Status: alert / awake / arousable Patient Amnestic to Procedure: Yes Nausea / Vomiting: adequately controlled Pain: adequately controlled Airway Patency, RR, SpO2: stable & adequate BP & HR: stable & adequate Hydration State: stable & adequate Anesthetic Complications: no major complications apparent and Pt Satisfied with anesthetic care
[2023-10-29] MEDS: [UNRECOGNIZED DRUG - OTHER] PO SCH (14:27)
[2023-10-29] MEDS: ACETAMINOPHEN 325 MG TAB PO PRN (14:27)
[2023-10-29] MEDS: DOXYCYCLINE HYCLATE 100 MG PO SCH (14:27)
--- NOTE | 2023-10-29 16:54 | Gynecologic Progress Note ---
Date of Service October 29, 2023 Assessment & Plan Admission and Anticipated Discharge Date Admission Date: October 29, 2023 Subjective Postop check Patient is seen and examined Feels well, no complaints Pain is under control with meds No CP/ SOB/ Dizziness/ N&V/ VB/ Leg pain Not OOB yet Tolerating clears Explained about the surgery and findings Explained about uterine perforation with no bleeding and what to expect. Vital Signs Temp Pulse Pulse Pulse Resp BP Pulse Ox 10/29/23 15:55 36.7 C 99 H 16 98/67 L 97 10/29/23 14:55 36.7 C 91 H 16 92/64 L 99 10/29/23 14:22 36.8 C 88 16 93/60 L 95 10/29/23 13:57 36.8 C 92 H 16 98/63 L 99 10/29/23 13:35 82 14 113/65 99 10/29/23 13:25 90 14 111/63 99 10/29/23 13:15 36.9 C 92 H 14 112/79 98 10/29/23 13:05 92 H 16 120/91 98 10/29/23 12:55 88 14 105/73 100 10/29/23 12:45 70 16 115/61 99 10/29/23 12:35 85 14 129/69 100 10/29/23 12:25 86 12 119/68 100 10/29/23 12:15 36.0 C L 83 20 98/62 L 98 10/29/23 08:43 37.1 C 83 20 135/89 97 O2 Del Method O2 Flow Rate 10/29/23 15:55 Room Air 10/29/23 14:55 Room Air 10/29/23 14:22 Room Air 10/29/23 13:57 Room Air 10/29/23 13:35 Nasal Cannula 1 10/29/23 13:25 Nasal Cannula 3 10/29/23 13:15 Oxymask 3 10/29/23 13:05 Oxymask 3 10/29/23 12:55 Oxymask 3 10/29/23 12:45 Oxymask 3 10/29/23 12:35 Oxymask 4 10/29/23 12:25 Oxymask 6 10/29/23 12:15 Oxymask 6 10/29/23 08:43 Room Air 10/29/23 10/29/23 10/29/23 Range/Units 12:24 10:55 09:22 WBC 6.77 (4.8-10.8) K/ul RBC 4.91 (4.20-5.40) M/uL Hgb 11.1 L 13.6 (12.0-16.0) g/dl Hct 35.8 L 42.9 (37.0-47.0) % MCV 87.4 (80.0-100.0) fL MCH 27.7 (25.0-34.0) pg MCHC 31.7 L (32.0-36.0) g/dL RDW Std Deviation 48.7 H (36.4-46.3) fL RDW Coeff of Sia 15.2 H (11.5-14.5) % Plt Count 211 (130-400) K/uL MPV 10.8 (9.4-12.4) fL Immature Gran % (Auto) 0.3 % Neut % (Auto) 50.2 % Lymph % (Auto) 41.5 % [place] % (Auto) 6.6 % Eos % (Auto) 1.0 % Baso % (Auto) 0.4 % Neut # (Auto) 3.39 (1.40-6.50) K/uL Lymph # (Auto) 2.81 (1.20-3.40) K/uL [place] # (Auto) 0.45 (0.11-0.59) K/uL Eos # (Auto) 0.07 (0.00-0.50) K/uL Baso # (Auto) 0.03 (0.00-0.20) K/uL Immature Gran # (Auto) 0.02 (0.01-0.20) K/uL Blood Type Cancelled O Negative Antibody Screen Cancelled POSITIVE A Antibody Identification Anti-D due to RhIg Antibody ID Comment Crossmatch See Detail PE: General: Alert, orientedx3, NAD CVS: S1S2 RRR Lungs: CTAB Abd: soft, NT, ND, BS+, Incisions C/D/I Minimal VB Ext: NT, no edema, SCD's on AP: 28 yo female s/p EUA, Suction, D&C under US and laparoscopic guidance , pod#0 VSS Afebrile doing well Continue to routine postop care Encourage PO intake, may ambulate D/C home in am Results & Data Vital Signs (Past 12 Hours) Vital Signs Temp Pulse Pulse Pulse Resp BP Pulse Ox 10/29/23 15:55 36.7 C 99 H 16 98/67 L 97 10/29/23 14:55 36.7 C 91 H 16 92/64 L 99 10/29/23 14:22 36.8 C 88 16 93/60 L 95 10/29/23 13:57 36.8 C 92 H 16 98/63 L 99 10/29/23 13:35 82 14 113/65 99 10/29/23 13:25 90 14 111/63 99 10/29/23 13:15 36.9 C 92 H 14 112/79 98 10/29/23 13:05 92 H 16 120/91 98 10/29/23 12:55 88 14 105/73 100 10/29/23 12:45 70 16 115/61 99 10/29/23 12:35 85 14 129/69 100 10/29/23 12:25 86 12 119/68 100 10/29/23 12:15 36.0 C L 83 20 98/62 L 98 10/29/23 08:43 37.1 C 83 20 135/89 97 O2 Del Method O2 Flow Rate 10/29/23 15:55 Room Air 10/29/23 14:55 Room Air 10/29/23 14:22 Room Air 10/29/23 13:57 Room Air 10/29/23 13:35 Nasal Cannula 1 10/29/23 13:25 Nasal Cannula 3 10/29/23 13:15 Oxymask 3 10/29/23 13:05 Oxymask 3 10/29/23 12:55 Oxymask 3 10/29/23 12:45 Oxymask 3 10/29/23 12:35 Oxymask 4 10/29/23 12:25 Oxymask 6 10/29/23 12:15 Oxymask 6 10/29/23 08:43 Room Air
[2023-10-29] MEDS: CHECK SCOPOLAMINE PATCH PLACEMENT SCH (17:10)
[2023-10-29] MEDS: IBUPROFEN 600 MG TAB PO SCH (17:10)
[2023-10-29] MEDS: cephALEXin 500 MG CAP PO SCH (17:49)
[2023-10-29] MEDS: METHYLERGONOVINE MALEATE 0.2 MG TAB PO SCH (17:49)
[2023-10-29 18:28] LABS: Basophils # (auto) 0.02 K/uL (0.00-0.20); Basophils % (auto) 0.1 %; Hematocrit (blood only) 33.9 % (37.0-47.0); Hemoglobin 10.8 g/dl (12.0-16.0); Immature Granulocytes # (auto) 0.05 K/uL (0.01-0.20); Immature Granulocytes % (auto) 0.4 %; Lymphocytes # (auto) 1.34 K/uL (1.20-3.40); Lymphocytes % (auto) 9.7 %; Mean Corpuscular Hemoglobin 27.8 pg (25.0-34.0); Mean Corpuscular Hgb Conc 31.9 g/dL (32.0-36.0); Mean Corpuscular Volume 87.1 fL (80.0-100.0); Mean Platelet Volume 11.2 fL (9.4-12.4); Monocytes # (auto) 0.26 K/uL (0.11-0.59); Monocytes % (auto) 1.9 %; Neutrophils # (auto) 12.18 K/uL (1.40-6.50); Neutrophils % (auto) 87.9 %; Platelet Count 229 K/uL (130-400); RDW Coefficient of Variation 15.3 % (11.5-14.5); RDW Standard Deviation 48.5 fL (36.4-46.3); Red Blood Count 3.89 M/uL (4.20-5.40); White Blood Count 13.85 K/ul (4.8-10.8)
[2023-10-29] MEDS: oxyCODONE/ACETAMINOPHEN 5mg/325mg TAB PO PRN (21:18)
[2023-10-30 06:56] LABS: Basophils # (auto) 0.02 K/uL (0.00-0.20); Basophils % (auto) 0.2 %; Eosinophils # (auto) 0.02 K/uL (0.00-0.50); Eosinophils % (auto) 0.2 %; Hematocrit (blood only) 27.4 % (37.0-47.0); Hemoglobin 8.7 g/dl (12.0-16.0); Immature Granulocytes # (auto) 0.05 K/uL (0.01-0.20); Immature Granulocytes % (auto) 0.5 %; Lymphocytes # (auto) 3.09 K/uL (1.20-3.40); Lymphocytes % (auto) 33.4 %; Mean Corpuscular Hemoglobin 28.1 pg (25.0-34.0); Mean Corpuscular Hgb Conc 31.8 g/dL (32.0-36.0); Mean Corpuscular Volume 88.4 fL (80.0-100.0); Mean Platelet Volume 11.4 fL (9.4-12.4); Monocytes # (auto) 0.77 K/uL (0.11-0.59); Monocytes % (auto) 8.3 %; Neutrophils % (auto) 57.4 %; Platelet Count 193 K/uL (130-400); RDW Coefficient of Variation 15.6 % (11.5-14.5); RDW Standard Deviation 50.3 fL (36.4-46.3); White Blood Count 9.25 K/ul (4.8-10.8)
--- NOTE | 2023-10-30 07:27 | Obstetrical Progress Note ---
Date of Service October 30, 2023 Assessment & Plan Admission and Anticipated Discharge Date Admission Date: October 29, 2023 Subjective Patient is seen and examined. She feels well, no complaints. Pain is under control with oral meds. Ambulating without dizziness Voiding without difficulty Tolerating regular diet with out N&V Flatus + BM neg Bleeding is minimal No fever/ chills/ CP/ SOB/ N&V/ Leg pain Pumped Breast milk and gave to the baby with bottle last night, is helping. Vital Signs Temp Pulse Resp BP Pulse Ox O2 Del Method 10/30/23 07:14 36.8 C 85 16 120/65 98 Room Air 10/30/23 03:55 37.1 C 61 17 112/68 98 Room Air 10/29/23 21:10 37.2 C 88 18 109/75 98 Room Air Lab Results 10/29/23 10/29/23 10/29/23 Range/Units 09:22 10:55 12:24 WBC 6.77 (4.8-10.8) K/ul RBC 4.91 (4.20-5.40) M/uL Hgb 13.6 11.1 L (12.0-16.0) g/dl Hct 42.9 35.8 L (37.0-47.0) % MCV 87.4 (80.0-100.0) fL MCH 27.7 (25.0-34.0) pg MCHC 31.7 L (32.0-36.0) g/dL RDW Std Deviation 48.7 H (36.4-46.3) fL RDW Coeff of Sia 15.2 H (11.5-14.5) % Plt Count 211 (130-400) K/uL MPV 10.8 (9.4-12.4) fL Immature Gran % (Auto) 0.3 % Neut % (Auto) 50.2 % Lymph % (Auto) 41.5 % [place] % (Auto) 6.6 % Eos % (Auto) 1.0 % Baso % (Auto) 0.4 % Neut # (Auto) 3.39 (1.40-6.50) K/uL Lymph # (Auto) 2.81 (1.20-3.40) K/uL [place] # (Auto) 0.45 (0.11-0.59) K/uL Eos # (Auto) 0.07 (0.00-0.50) K/uL Baso # (Auto) 0.03 (0.00-0.20) K/uL Immature Gran # (Auto) 0.02 (0.01-0.20) K/uL Blood Type O Negative Cancelled Antibody Screen POSITIVE A Cancelled Antibody Identification Anti-D due to RhIg Antibody ID Comment Crossmatch See Detail 10/29/23 10/30/23 Range/Units 17:58 05:59 WBC 13.85 H 9.25 (4.8-10.8) K/ul RBC 3.89 L 3.10 L (4.20-5.40) M/uL Hgb 10.8 L 8.7 L (12.0-16.0) g/dl Hct 33.9 L 27.4 L (37.0-47.0) % MCV 87.1 88.4 (80.0-100.0) fL MCH 27.8 28.1 (25.0-34.0) pg MCHC 31.9 L 31.8 L (32.0-36.0) g/dL RDW Std Deviation 48.5 H 50.3 H (36.4-46.3) fL RDW Coeff of Sia 15.3 H 15.6 H (11.5-14.5) % Plt Count 229 193 (130-400) K/uL MPV 11.2 11.4 (9.4-12.4) fL Immature Gran % (Auto) 0.4 0.5 % Neut % (Auto) 87.9 57.4 % Lymph % (Auto) 9.7 33.4 % [place] % (Auto) 1.9 8.3 % Eos % (Auto) 0.0 0.2 % Baso % (Auto) 0.1 0.2 % Neut # (Auto) 12.18 H 5.30 (1.40-6.50) K/uL Lymph # (Auto) 1.34 3.09 (1.20-3.40) K/uL [place] # (Auto) 0.26 0.77 H (0.11-0.59) K/uL Eos # (Auto) 0.00 0.02 (0.00-0.50) K/uL Baso # (Auto) 0.02 0.02 (0.00-0.20) K/uL Immature Gran # (Auto) 0.05 0.05 (0.01-0.20) K/uL Blood Type Antibody Screen Antibody Identification Antibody ID Comment Crossmatch PE: General: Alert, orientedx3, NAD CVS: S1S2 RRR Lungs; CTAB Abd: soft, NT, ND, BS+, Incisions: Clean, dry, intact Perineum intact, VB minimal Ext; NT, no edema AP: 28 yo s/p on 4, s/p EUA, Suction D&C under US and Laparoscopic guidance, pod# 1 VSS Afebrile doing well H&H drop expected per blood loss during surgery, asymptomatic Continue routine postop care Encourage ambulation, PO intake All questions were answered D/C home , f/u in office Discussed when to call Results & Data Vital Signs (Past 12 Hours) Vital Signs Temp Pulse Resp BP Pulse Ox O2 Del Method 10/30/23 07:14 36.8 C 85 16 120/65 98 Room Air 10/30/23 03:55 37.1 C 61 17 112/68 98 Room Air 10/29/23 21:10 37.2 C 88 18 109/75 98 Room Air
[2023-10-30] MEDS: FERROUS SULFATE 325 MG TAB PO SCH (08:10)
[2023-10-30] MEDS: PRENATAL VITAMIN 1 TAB PO SCH (08:10)
--- OUTSIDE RECORDS SUMMARY | 2023-10-31 07:41 | External Medical Summary | Summary of Care ---
Author Name Unknown Organization [facility] Address [address] [address] Phone [phone] Care Team Providers Care Armature Balancer Name Role Phone Unavailable Primary Care Provider Unavailabl e Encounter Details Date Type Department Care Team (Late st Contact Info) Description 10/27/2023 Telephone Gynecology/Obstetrics Ana M Parker [address] [place] [phone] Rj Mauricio MD [address] [place] [id number] Allergies Active Allergy Reactions Criticality Noted Date Comments Sulfadiazine 04/24/2022 Other reaction(s): hives, itching Sulfamethoxazole-Trimethopri m Rash 08/24/2018 Other reaction(s): hives, itching documented as of this encounter (statuses as of 10/27/2023) Medications Medication Sig Dispensed Refills Start Date [...] as of this encounter (statuses as of 10/27/2023) Active Problems Problem Noted Date Diagnosed Date [...] RPM Stable, Metformin 500 mg QHS ---KW 09/29/23: RPM reviewed; stable overall. Patient reported extra carbohydrates on 09/26; causing PP elevations. Continue Metformin 500 mg at bedtime. IOL scheduled 09/30. 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 Early GTT WNL Eczema 01/10/2020 Eosinophilic esophagitis 01/10/2020 Migraine headache 01/10/2020 documented as of this encounter (statuses as of 10/27/2023) Immunizations Name Administration Dates Next Due Seasonal [...] money to get more. Never true 02/16/2023 [place] Depression Scale Answer Date Recorded [place] Depression Scale Total 8 10/19/2023 The thought of harming myself has occurred to me . Never 10/19/2023 Sex and Gender Information Value Date Recorded Sex Assigned at Female 02/16/2023 5:33 AM EDT Gender Identity Female 02/16/2023 5:33 AM EDT Sexual Orientation Straight 02/16/2023 5: 33 AM EDT Job Start Date Occupation Industry Not on file Not on file Not on file documented as of this encounter Miscellaneous Notes * Telephone Encounter - Annette Camarena LPN - 10/27/2023 8:21 AM EDT Pt called in saying she spoke with dr mauricio this morning after waking up and having a ping pong size cot. Pt delivered 4/5 vaginal delivery and has not had any vb for the past 1.5 weeks. Pt is also having cramping. Per pt dr mauricio wanted a US done to rule out retained products. Pt is .Order placed pt is coming in today at 1200 for US documented in this encounter Plan of Treatment Upcoming Encounters Date Type Department Care Team (Late st Contact Info) Description 10/28/2023 12:00 PM EDT Telemedicine Gynecology/Obstetrics [facility] [address] [facility] [place] [phone] Natasha Aldrich CRNP [address] [place] [phone] 11/11/2023 3:00 PM EDT Office Visit Gynecology/Obstetric[facility] [address] [facility] [place] [phone] Sherice Selby CNM [address] [facility] [place] [id number] Scheduled Orders Name Type Priority Associated Diagnoses Orde r Schedule US PELVIS TRANS-VAGINAL NON-OB Medical Imaging Routine Retained products of conception after delivery without hemorrhage Ordered: 10/27/2023 Health Maintenance Due Date Last Done Comments [...] as of this encounter Visit Diagnoses Diagnosis Retained products of conception after delivery without hemorrhage- Primary Retained portions of placenta or membranes, without hemorrhage, delivered, with mention of complication documented in this encounter
--- OUTSIDE RECORDS SUMMARY | 2023-10-31 07:41 | External Medical Summary | Summary of Care ---
Author Name Unknown Organization [facility] Address [address] [facility] [place] [address] Phone [phone] Care Team Providers Care Child Welfare Assistant Name Role Phone Unavailable Primary Care Provider Unavailabl e Reason for Visit * Reason Comments Encounter Details Date Type Department Care Team (Late Contact Info) Description 10/11/2023 10:30 AM EDT Office Visit Gynecology/Obstetric s Ana M Parker [address] [place] [address] Eugenio Rivera MD [address] [place] [phone] Constipation, unspecified constipation type* Allergies Active Allergy Reactions Criticality Noted Date Comments Sulfadiazine 04/24/2022 Other reaction(s): hives, itching Sulfamethoxazole-Trimethopri m Rash 08/24/2018 Other reaction(s): hives, itching documented as of this encounter (statuses as of 10/11/2023) Medications Medication Sig Dispensed Refills Start Date [...] as of this encounter (statuses as of 10/11/2023) Active Problems Problem Noted Date Diagnosed Date [...] 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 Early GTT WNL Eczema 01/10/2020 Eosinophilic esophagitis 01/10/2020 Migraine headache 01/10/2020 documented as of this encounter (statuses as of 10/11/2023) Immunizations Name Administration Dates Next Due Seasonal [...] money to get more. Never true 02/16/2023 [place] Depression Scale Answer Date Recorded [place] Depression Scale Total 6 09/09/2023 The thought of harming myself has occurred to me . Never 09/09/2023 Sex and Gender Information Value Date Recorded Sex Assigned at Female 02/16/2023 5:33 AM EDT Gender Identity Female 02/16/2023 5:33 AM EDT Sexual Orientation Straight 02/16/2023 5: 33 AM EDT Job Start Date Occupation Industry Not on file Not on file Not on file documented as of this encounter Last Filed Vital Signs Vital Sign Reading Time Taken Comments Blood Pressure 118/76 10/11/2023 10:24 AM EDT Pulse - - Temperature - - Respiratory Rate - - Oxygen Saturation - - Inhaled Oxygen Concentration - - Weight 83.9 kg (185 lb) 10/11/2023 10:24 AM EDT Height 157.5 cm (5' 2") 10/11/2023 10:24 AM EDT Body Mass Index 33.84 10/11/2023 10:24 AM EDT documented in this encounter Progress Notes * Eugenio Rivera MD - 10/11/2023 10:56 AM EDT Patient is status vaginal delivery 1 week ago has been doing well since. Patient this morning experience low vaginal rectal pain called the office and was asked to come in for evaluation. She reportspain is worse with a bowel movement she has moved her bowels today and pain was slightly improved that the bowel movement. On arrival to the office she has shortness of breath chills or fever reportsrectal pain. Pelvic exam is unremarkable the snow hematoma in the vagina exam in the vagina is unremarkable uterus he has been in umbilicus not nontender there is very minimal discharge from the cervix. Rectal exam however is very uncomfortable no hemorrhoids seen. Plan Stop vitamins Increase oral hydration Continue colace and fiber documented in this encounter Nursing Notes * Mere Winter LPN - 10/11/2023 10:28 AM EDT Pain starting last night. Sharp pain, ctx like. documented in this encounter Plan of Treatment Upcoming Encounters Date Type Department Care Team (Late st Contact Info) Description 10/28/2023 12:00 PM EDT Telemedicine Gynecology/Obstetrics Ana M Parker [address] [place] [address] Natasha Aldrich CRNP [address] [place] [address] 11/11/2023 3:00 PM EDT Office Visit Gynecology/Obstetrics Ana M Parker [address] [place] [address] Sherice Selby, [facility] [address] [place] [address] Health Maintenance Due Date Last Done Comments Depression Screening 2007 Hepatitis B (1 of 3 - 19+ 3-dose series) 2014 COVID-19 Vaccine (4 - season) 2023 04/24/2022, 05/02/2021, 08/30/2020 Pap [...] as of this encounter Visit Diagnoses Diagnosis Constipation, unspecified constipation type- Primary documented in this encounter
--- OUTSIDE RECORDS SUMMARY | 2023-10-31 07:41 | External Medical Summary | Summary of Care ---
Author Name Unknown Organization [facility] Address [address] [place] [address] Phone [phone] Care Team Providers Care Prize Fighter Name Role Phone Unavailable Primary Care Provider Unavailabl e Reason for Visit * Reason Onset Date Comments Returning Call 07/27/2023 Encounter Details Date Type Department Care Team (Late st Contact Info) Description 07/27/2023 Telephone Pharmacy Call Center [address] [place], [place] [phone] Clinic, Anemia [address] [place] [address] Returning Call Allergies Active Allergy Reactions Criticality Noted Date Comments Sulfadiazine 04/24/2022 Other reaction(s): hives, itching Sulfamethoxazole-Trimethopri m Rash 08/24/2018 Other reaction(s): hives, itching documented as of this encounter (statuses as of 10/26/2023) Medications Medication Sig Dispensed Refills Start Date [...] as of this encounter (statuses as of 10/26/2023) Active Problems Problem Noted Date Diagnosed Date [...] 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 Early GTT WNL Eczema 01/10/2020 Eosinophilic esophagitis 01/10/2020 Migraine headache 01/10/2020 Comments Yes documented as of this encounter (statuses as of 10/26/2023) Immunizations Name Administration Dates Next Due Seasonal [...] money to get more. Never true 02/16/2023 [place] Depression Scale Answer Date Recorded [place] Depression Scale Total 8 10/19/2023 The thought of harming myself has occurred to me . Never 10/19/2023 Comments Yes Sex and Gender Information Value Date Recorded Sex Assigned at Female 02/16/2023 5:33 AM EDT Gender Identity Female 02/16/2023 5:33 AM EDT Sexual Orientation Straight 02/16/2023 5: 33 AM EDT Job Start Date Occupation Industry Not on file Not on file Not on file documented as of this encounter Miscellaneous Notes * Telephone Encounter - Tash Poe PHARM Tech - 07/27/2023 3:22 PM EST Caller's name: Krystal Doyle call back number(OFFICE NUMBER FOR ): [phone] Reason for call: Pt returning call to [facility] about scheduling an iron infusion. Please return her call. Thank you, Tash Poe Electrician'S Helper [facility] 07/27/2023,3:22 PM documented in this encounter Plan of Treatment Upcoming Encounters Date Type Department Care Team (Late st Contact Info) Description 10/28/2023 12:00 PM EDT [facility] [address] [place] [address] Natasha Aldrich CRNP [address] [place] [address] 11/11/2023 3:00 PM EDT Office Visit Gynecology/Obstetrics [facility] [address] [place] [address] Sherice Selby, [facility] [address] [place] [address] Health Maintenance Due Date Last Done Comments [...]
--- OUTSIDE RECORDS SUMMARY | 2023-10-31 07:41 | External Medical Summary | Summary of Care ---
Author Name Unknown Organization [facility] Address [address] [facility] [place] [address] Phone [phone] Care Team Providers Care Traction Power Engineer Name Role Phone Unavailable Primary Care Provider Unavailabl e Reason for Visit * Reason Comments eRx-Medication Refill Encounter Details Date Type Department Care Team (Late st Contact Info) Description 10/10/2023 Refill Gynecology/Obstetrics [facility] [address] [place] [address] Natasha Aldrich CRNP [address] [place] [address] Diet controlled gestational diabetes mellitus (GDM) in [...] 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 Never 09/09/2023 Comments Yes Sex and Gender Information Value Date Recorded Sex Assigned at Female 02/16/2023 5:33 AM EDT Gender Identity Female 02/16/2023 5:33 AM EDT Sexual Orientation Straight 02/16/2023 5: 33 AM EDT Job Start Date Occupation Industry Not on file Not on file Not on file documented as of this encounter Miscellaneous Notes * Telephone Encounter - Costa Lopez RN - 10/11/2023 1:51 PM EDTRefused Prescriptions: Disp Refills OneTouch Verio In Vitro Strip (Glucose Blo*[address] St*2 Sig: USE TOTEST BLOOD SUGAR 4 TIMES A DAYRefused By: COSTA LOPEZ for Refusal: Not indicated * Telephone Encounter - Costa Lopez RN - 10/11/2023 1:50 PM EDT Pt is now . documented in this encounter Plan of Treatment Upcoming Encounters Date Type Department Care Team (Late st Contact Info) Description 10/28/2023 12:00 PM EDT Telemedicine Gynecology/Obstetrics [facility] [address] [place] [address] Natasha Aldrich CRNP [address] [place] [address] 11/11/2023 3:00 PM EDT Office Visit Gynecology/Obstetrics [facility] [address] [place] [address] Sherice Selby [address] [place] [address] Health Maintenance Due Date Last Done Comments [...]
--- OUTSIDE RECORDS SUMMARY | 2023-10-31 07:41 | External Medical Summary | Summary of Care ---
Author Name Unknown Organization [facility] Address [address] [facility] [address] Phone [phone] Care Team Providers Care Dishroom Attendant Name Role Phone Unavailable Primary Care Provider Unavailabl e Reason for Visit * Reason Comments Covered Buckle Assembler Return Encounter Details Date Type Department Care Team (Late st Contact Info) Description 10/27/2023 12:30 PM EDT Office Visit Gynecology/Obstetric s Ana M Parker [address] [place] [address] Eugenio Rivera MD [address] [facility] [place] [address] Retained portions of placenta* Allergies Active Allergy Reactions Criticality Noted Date [...] at bedtime. 90 Tablet 1 09/09/2023 Active miSOPROStol 200 MCG Oral Tablet (Cytotec) Take 3 tabs and repeat in 12 hours with food. 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 Never true 02/16/2023 [place] Depression Scale Answer Date Recorded [place] Depression Scale Total 8 10/19/2023 The thought [...] as of this encounter Progress Notes * Eugenio Rivera MD - 10/27/2023 1:58 PM EDT Pt here for preop History and physical examination done Consnet obtained documented in this encounter H&P Notes * Eugenio Rivera MD - 10/27/2023 1:49 PM EDT yary [address] [address] Appt line [phone] Krystal Kruger is a 28 year old year old year old S/p vaginal delivery on 10/02/23. Pt experienced heavy bleeding today and sono done showed retained placenta OB History Para Term AB Living 1 1 1 0 0 1 SAB IAB Ectopic Multiple Live Births 0 0 0 0 1 # Outcome Date GA Lbr Hung/2nd Weight Sex Delivery Anes PTL Lv 1 Term 10/02/23 39w3d 3.515 kg (7 lb 12 oz) F Vag-Spont NILESH Complications: GDM (gestational diabetes mellitus) Obstetric Comments 2023 FOB #1: Jeremie, age 38,healthy Date Labor Sex Delivery Anesth Del Comments GA Length Weight Type Site Covered Buckle Assembler History: Menstrual Index: // days. Denies h/o STDs and abnormal Paps. Her past medical/surgical histories and current medications are recorded in the electronic record. 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: [employer] [address] Tobacco Use Smoking status: Never Smokeless tobacco: Never Vaping Use Vaping Use: Never used Substance and Sexual Activity Alcohol use: No Drug use: No Sexual activity: Yes Partners: Male Other Topics Concern Not on file Social History Narrative Not on file Social Determinants of Health Financial Resource Strain: Not on file Food Insecurity: No Food Insecurity (02/16/2023) Hunger Vital Sign Worried About Running Out of Food in the Last Year: Never true Ran Out of Food in the Last Year: Never true Transportation Needs: Not on file Physical Activity: Not on file Stress: Not on file Social Connections: Not on file Intimate Partner Violence: Not on file Housing Stability: Not on file @[employer]S@ Physical Exam: LMP 12/30/2022 (Exact Date) CV: S1, S2. Regular rate and Rhythm Lungs: Clear to auscultation bilaterally. Abdomen: Soft Extremities: Soft non tender calves bilaterally. A/P: 28 year old year old S/p VD on 10/02/23 Retained placenta on sonogram Discussed expectant management medial tx with Cytotec and surgery Pt is agreeable to dilation and evacuation of uterus under ultrasound guidance We have discussed the risk alternatives and complications of surgery including more surgery to correct complication,risk of anesthesia,infection,damage to internal organs and . We have also discussed the possibility that pt's present situation may not change. Pt is aware and wishes to proceed to surgery. Consent is signed Eugenio Rivera MD 10/27/2023 1:49 PM documented in this encounter Nursing Notes * Annette Camarena LPN - 10/27/2023 12:52 PM EDT Pt is here to discuss US and retained products documented in this encounter Plan of Treatment Upcoming Encounters Date Type Department Care Team (Late st Contact Info) Description 10/28/2023 12:00 PM EDT Telemedicine Gynecology/Obstetrics [address] [place] [address] Natasha Aldrich CRNP [address] [place] [address] 11/11/2023 3:00 PM EDT Office Visit Gynecology/Obstetrics Ana M Parker [address] [place] [address] Sherice Selby, [facility] [address] [facility] [place] [address] Health Maintenance Due Date Last Done Comments [...] of this encounter Visit Diagnoses Diagnosis Retained portions of placenta- Primary documented in this encounter
--- OUTSIDE RECORDS SUMMARY | 2023-10-31 07:42 | External Medical Summary | Summary of Care ---
Author Name Unknown Organization [facility] Address [address] [place] [address] Phone [phone] Care Team Providers Care Detective Name Role Phone Unavailable Primary Care Provider Unavailabl e Reason for Visit * Reason Onset Date Comments Anemia Follow-Up 10/01/2023 Encounter Details Date Type Department Care Team (Late st Contact Info) Description 09/28/2023 9:30 AM EDT Pharmacy Pharmacy, [place] [address] [place], [place] [phone] Clinic, Anemia [address] [place] [address] Iron deficiency anemia, unspecified iron deficiency anemia type* Allergies Active Allergy Reactions Criticality Noted Date Comments Sulfadiazine 04/24/2022 Other reaction(s): hives, itching Sulfamethoxazole-Trimethopri m Rash 08/24/2018 Other reaction(s): hives, itching documented as of this encounter (statuses as of 10/01/2023) Medications Medication Sig Dispensed Refills Start Date [...] as of this encounter (statuses as of 10/01/2023) Active Problems Problem Noted Date Diagnosed Date [...] 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 Early GTT WNL Eczema 01/10/2020 Eosinophilic esophagitis 01/10/2020 Migraine headache 01/10/2020 Estimated Date of Delivery Comme nts Yes 10/06/2023 Based on last me nstrual period of 12/30/2022 (Exact Date) documented as of this encounter (statuses as of 10/01/2023) Immunizations Name Administration Dates Next Due Seasonal [...] money to get more. Never true 02/16/2023 [place] Depression Scale Answer Date Recorded [place] Depression Scale Total 6 09/09/2023 The thought [...] encounter Progress Notes * Maria Victoria Monreal [facility] - 10/01/2023 2:19 PM EDT Patient Phone Numbers Called patient to review labs from 09/23. GIACOMO. GA: 39w2d Estimated Date of Delivery: 10/06/23 Hgb: 12.9 g/dL TSAT: 11 % Ferritin: 16 ng/mL B12: 489 pg/mL FA: >20.0 ng/mL Patient is s/p Venofer 300mg IV x 3 on 08/02, 08/09 and 08/17. Hgb is within target range for the third trimester. Iron studies within target range. Patient is taking B12 1000mcg daily and appears to be tolerating it without issue. Plan: No anemia pharmacological intervention at this time. Anemia Clinic will sign off at this time. Thank you for allowing us to participate in the care of this patient. Thanks, Maria Victoria Monreal [facility] Clinical Pharmacist [facility] (P: [phone]) 10/01/2023 2:19 PM documented in this encounter Plan of Treatment Health Maintenance Due Date Last Done Comments [...]
--- OUTSIDE RECORDS SUMMARY | 2023-10-31 07:42 | External Medical Summary | Summary of Care ---
Author Name Unknown Organization [facility] Address [address] [facility] [place] [address] Phone [phone] Care Team Providers Care Fitter Mechanic Name Role Phone Unavailable Primary Care Provider Unavailabl e Reason for Visit * Reason Onset Date Comments Advice 10/11/2023 Encounter Details Date Type Department Care Team (Late st Contact Info) Description 10/11/2023 [facility] [address] [place] [address] Eugenio Rivera MD [address] [place] [address] Advice Allergies Active Allergy Reactions Criticality Noted Date [...] the morning. 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 Never true 02/16/2023 [place] Depression Scale Answer Date Recorded [place] Depression Scale Total 6 09/09/2023 The thought [...] Miscellaneous Notes * Telephone Encounter - Georgiana Bui RN - 10/11/2023 8:19 AM EDT Pt called the office stating that she delivered on 10/01, vaginally. She was feeling really good up until last night around 8 pm when she developed severe cramping that was consistent and doubled her over in pain. She ended up moving her bowels and states that she had severe pain within her rectum. She said if feels like it is constantly spasming. She called Dr. Mauricio around 1100 and he advised herto call and be seen today if the pain was not better. It is not. She states that it feels like something is obstructing her rectum. Stool is soft but only coming out in small amounts. She is . Offered appt. Pt agreeable. documented in this encounter Plan of Treatment Upcoming Encounters Date Type Department Care Team (Late st Contact Info) Description 10/11/2023 10:30 AM EDT [facility] [address] [address] Eugenio Rievra MD [address] [place] [address] 10/28/2023 12:00 PM EDT Telemedicine [facility] [address] [place] [address] Natasha Aldrich CRNP [address] [place] [address] 11/11/2023 3:00 PM EDT Office Visit Gynecology/Obstetrics [facility] [address] [place] [address] Sherice Selby CNM [address] [place] [address] Health Maintenance Due Date Last Done Comments [...]
--- OUTSIDE RECORDS SUMMARY | 2023-10-31 07:42 | External Medical Summary | Summary of Care ---
Author Name Unknown Organization [facility] Address [address] [place] [facility] [place] [address] Phone [phone] Care Team Providers Care Feed Mill Manager Name Role Phone Unavailable Primary Care Provider Unavailabl e Reason for Visit * Reason Onset Date Comments 10/05/2023 Post visi ts Encounter Details Date Type Department Care Team (Late st Contact Info) Description 10/05/2023 Telephone Gynecology/Obstetrics [address] [place] [phone] Self [address] ADDRESS AVAILABLE (Post visits ) Allergies Active Allergy Reactions Criticality Noted Date Comments Sulfadiazine 04/24/2022 Other reaction(s): hives, itching Sulfamethoxazole-Trimethopri m Rash 08/24/2018 Other reaction(s): hives, itching documented as of this encounter (statuses as of 10/05/2023) Medications Medication Sig Dispensed Refills Start Date [...] as of this encounter (statuses as of 10/05/2023) Active Problems Problem Noted Date Diagnosed Date [...] 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 Early GTT WNL Eczema 01/10/2020 Eosinophilic esophagitis 01/10/2020 Migraine headache 01/10/2020 Estimated Date of Delivery Comme nts Yes 10/06/2023 Based on last me nstrual period of 12/30/2022 (Exact Date) documented as of this encounter (statuses as of 10/05/2023) Immunizations Name Administration Dates Next Due Seasonal [...] money to get more. Never true 02/16/2023 [place] Depression Scale Answer Date Recorded [place] Depression Scale Total 6 09/09/2023 The thought [...] 12:00 PM EDT Telemedicine Gynecology/Obstetrics [facility] [address] [place] [address] Natasha Aldrich CRNP [address] [place] [address] 11/11/2023 3:00 PM EDT Office Visit Gynecology/Obstetrics Ana M Parker [address] [place] [address] Sherice Selby, [facility] [address] [place] [address] Health Maintenance Due Date Last Done Comments [...]
--- OUTSIDE RECORDS SUMMARY | 2023-10-31 07:42 | External Medical Summary | Summary of Care ---
Author Name Unknown Organization [facility] Address [address] [place] [address] Phone [phone] Care Team Providers Care Undercar Specialist Name Role Phone Unavailable Primary Care Provider Unavailabl e Reason for Visit * Reason Onset Date Comments Home Monitoring Orders Only 10/06/2023 Encounter Details Date Type Department Care Team (Late st Contact Info) Description 10/06/2023 Home Monitoring [facility] Obst[facility] [place] [address], [place] [id number] Tash Macdonald CRNP [address] [place] [address] Gestational diabetes mellitus (GDM) in third trimester controlled on oral hypoglycemic drug* Allergies Active Allergy Reactions Criticality Noted Date Comments Sulfadiazine 04/24/2022 Other reaction(s): hives, itching Sulfamethoxazole-Trimethopri m Rash 08/24/2018 Other reaction(s): hives, itching documented as of this encounter (statuses as of 10/06/2023) Medications Medication Sig Dispensed Refills Start Date [...] as of this encounter (statuses as of 10/06/2023) Active Problems Problem Noted Date Diagnosed Date [...] 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 Early GTT WNL Eczema 01/10/2020 Eosinophilic esophagitis 01/10/2020 Migraine headache 01/10/2020 Estimated Date of Delivery Comme nts Yes 10/06/2023 Based on last me nstrual period of 12/30/2022 (Exact Date) documented as of this encounter (statuses as of 10/06/2023) Immunizations Name Administration Dates Next Due Seasonal [...] money to get more. Never true 02/16/2023 [place] Depression Scale Answer Date Recorded [place] Depression Scale Total 6 09/09/2023 The thought [...] as of this encounter Progress Notes * Shreya Shipman RN - 10/06/2023 1:56 PM EDT Patient has been discharged from [facility] Diabetes in Home Monitoring Program - Delivery Date 10/01/23 documented in this encounter Plan of Treatment Upcoming Encounters Date Type Department Care Team (Late st Contact Info) Description 10/28/2023 12:00 PM EDT Telemedicine Gynecology/Obstetrics [facility] [address] [place] [phone] Natasha Aldrich CRNP [address] [place] [id number] 11/11/2023 3:00 PM EDT Office Visit Gynecology/Obstetrics [facility] [address] [place] [address] Sherice Selby, C[place] [address] [facility] [place] [address] Health Maintenance Due Date Last Done Comments [...] trimester controlled on oral hypoglycemic drug- Primary documented in this encounter
--- NOTE | 2023-10-31 19:28 | Gynecologic Progress Note ---
Date of Service October 31, 2023 Assessment & Plan Admission and Anticipated Discharge Date Admission Date: October 29, 2023 Subjective I called the patient to check how she has been doing since disharge she states she has been doing very well, pain is under control with MOtrin only, no fever, chills, N&V Bleeding is minimal. .She has been passing a lot of has and had Bm. Apetlte has been great, eating regular diet No dizziness or lightheadedness All questions were answered. She was very appreciative for the call.
--- OUTSIDE RECORDS SUMMARY | 2023-10-31 23:22 | External Medical Summary | Summary of Care ---
Author Name Unknown Organization [facility] Address [address] [place] [address] Phone [phone] Care Team Providers Care Level Vial Setter Name Role Phone Unavailable Primary Care Provider Unavailabl e Encounter Details Date Type Department Care Team (Late st Contact Info) Description 10/29/2023 Result Scan Unspecified Department <No scans attached> Allergies Active Allergy Reactions Criticality Noted Date Comments Sulfadiazine 04/24/2022 Other reaction(s): hives, itching Sulfamethoxazole-Trimethopri m Rash 08/24/2018 Other reaction(s): hives, itching documented as of this encounter (statuses as of 10/29/2023) Medications Medication Sig Dispensed Refills Start Date [...] a day 100 Each 2 08/03/2023 Active [place] In Vitro Strip (Glucose Blood)Indications: t controlled [...] as of this encounter (statuses as of 10/29/2023) Active Problems Problem Noted Date Diagnosed Date [...] 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 Early GTT WNL Eczema 01/10/2020 Eosinophilic esophagitis 01/10/2020 Migraine headache 01/10/2020 documented as of this encounter (statuses as of 10/29/2023) Immunizations Name Administration Dates Next Due Seasonal [...] money to get more. Never true 02/16/2023 [place] Depression Scale Answer Date Recorded [place] Depression Scale Total 8 10/19/2023 The thought [...] Care Team (Late st Contact Info) Description 11/11/2023 3:00 PM EDT Office Visit Gynecology/Obstetrics [facility] [address] [facility] [place] [address] Sherice Selby, [facility] [address] [place] [address] Health Maintenance Due Date Last Done Comments [...] Procedure Name Priority Date/Time Associated Diagnosis Comments OUTSIDE LAB RESULTS 10/29/2023 documented in this encounter Results * OUTSIDE LAB RESULTS (10/29/2023) 10/29/2023 No Physician Data Unknown LABORATORY documented in this encounter
--- OUTSIDE RECORDS SUMMARY | 2023-10-31 23:22 | External Medical Summary | Summary of Care ---
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 Never true 02/16/[address] [place] Depression Scale Answer Date Recorded [place] Depression Scale Total 8 10/19/2023 The thought [...] 11/11/2023 3:00 PM EDT [facility] [address] [facility] [place] [address] Sherice Selby, [facility] [address] [place] [phone] Health Maintenance Due Date Last Done Comments [...] Procedure Name Priority Date/Time Associated Diagnosis Comments CHEMISTRY-OUTSIDE Routine 10/29/2023 documented in this encounter Results * CHEMISTRY-OUTSIDE (10/29/2023) Not all results display below - see scan for full detail OUTSIDE LAB (SEE SCANNED REPORT) Comment:SEE SCAN: CBCD CREATININE-OUTSID E LAB OUTSIDE LAB (SEE SCANNED REPORT) EGFR-OUTSIDE LAB OUT SIDE LAB (SEE SCANNED REPORT) POTASSIUM-OUTSIDE LAB OUTSIDE LAB (SEE SCANNED REPORT) GLUCOSE-OUTSIDE LAB OUTSIDE LAB (SEE SCANNED REPORT) HOURS FASTING OUTSID E LAB (SEE SCANNED REPORT) TRIGLYCERIDES-OUT SIDE LAB OUTSIDE LAB (SEE SCANNED REPORT) CHOLESTEROL-OUTSI DE LAB OUTSIDE LAB (SEE SCANNED REPORT) HDL-OUTSIDE LAB OUTS [facility] (SEE SCANNED REPORT) CHOL/HDL RATIO-OUTSIDE LAB OUTSIDE LA B (SEE SCANNED REPORT) LDL (CALCULATED)-OUTS [facility] OUTSIDE LAB (SEE SCANNED REPORT) LDL (DIRECT MEASURE)-OUTSIDE LAB OUTSIDE LAB (SEE SCANNED REPORT) HEMOGLOBIN, H3V-CINKKRV LAB OUTSIDE LAB (SEE SCANNED REPORT) PHOSPHORUS-OUTSID E LAB OUTSIDE LAB (SEE SCANNED REPORT) PTH-OUTSIDE LAB OUTS [facility] LAB (SEE SCANNED REPORT) MICROALBUMIN RATIO-OUTSIDE LAB OUTSIDE LA B (SEE SCANNED REPORT) PROTEIN, UA-OUTSIDE LAB OUTSIDE LAB (SEE SCANNED REPORT) HGB 13.6 12.0 - 16.0 G/DL OUTSIDE LAB (SEE SCANNED REPORT) 10/29/2023 Eugenio Rivera MD LABORATORY OUTSIDE LAB (SEE SCANNED REPORT) documented in this encounter
== END 2023-10-30 10:14 | disposition home health service (06) ==
LOC: 3E 08:10 → ASU 08:10